=== PATIENT | female | born 1965 | race Caucasian/White ===

== ENCOUNTER 2017-02-12 19:41 | Inpatient (IN) | payer SELFPAY ==
[2017-02-12 19:55] VITALS: BMI 22.6
[2017-02-12] MEDS ORDERED: NS 1000 ML 1,000 ML ONE (20:09)
--- NOTE | 2017-02-12 20:14 | DR.GENAD ---
HPI - PCP Primary Care Physician: contreras - HPI Comment HPI Comment: NOT FEELING WELL FOR FEW DAYS. TODAY DIARRHEA STARTED. THEN INCREASING ABDOMINAL PAIN WITH N/V. WEAK AND DRAIN OF ENERGY. NO FEVER. TOOK 1/ 2 OF PERCOCET WITHOUT RELIEF. PAIN IS INTENSE. - Complaint/Symptoms Chief Complaint Doctors Comments: ABDOMINAL PAIN WITH N/V AND DISTENSION NOTED TODAY. Chief Complaint:: pt states" the bottom of my stomach started hurting today and then diarrhea started my stomach started swelling" pt also c/o genearlized weakness and pain - Nurses notes reviewed Nurses Notes Review: Yes - Source History Provided: Patient - Mode of Arrival Mode of Arrival: EMS - Timing Onset of Chief Complaint: 02/12/17 Came on: Suddenly - Duration Duration: Constant Duration: Hours - Severity Severity: Moderate PMH - PMH Past Medical History: Yes Past Medical History: Anemia, Hypertension Past Surgical History: Yes Surgical History: Hysterectomy Past Surgical History Comment: breast augmentation - Family History History of Family Medical Conditions: Yes Family Medical History: Hypertension - Social History Does any household member use tobacco: No Alcohol Use: None Do you use any recreational Drugs:: No Lives With: Family Lives Where: Home - infectious screening In the last 2 months have you had wt loss of >10#?: NO Have you had fever, night sweats or hemotysis?: No Have you traveled outside the country in the last 6 months?: No Isolation: Standard ROS - Review of Systems Constitutional: Weakness, Fatigue. negative: Chills, Fever Eyes: No Symptoms Reported. negative: Eye Pain, Discharge ENTM: No Symptoms Reported. negative: Ear Pain, Nose Discharge, Nose Congestion , Throat Pain Respiratoy: No Symptoms Reported. negative: Productive Cough, Short of Breath, Wheezing, Hemoptysis Cardiovascular: No Symptoms Reported Gastrointestinal/Abdominal: No Symptoms Reported, Abdominal Pain, Diarrhea, Nausea Genitourinary: No Symptoms Reported. negative: Dysuria, Frequency, Hematuria Neurological: No Symptoms Reported, Headache, Weakness, Dizziness Musculoskeletal: No Symptoms Reported, Back Pain, Back Integumentary: No Symptoms Reported Hematologic/Lymphatic: No Symptoms Reported Endocrine: No Symptoms Reported All Other Systems: Reviewed and Negative PE - Vital Signs Vitals: Temperature 98.6 F Pulse Rate [Left Brachial] 68 Pulse Rate 86 Respiratory Rate 18 Blood Pressure [Left Arm] 214/127 Blood Pressure [Right Arm] 121/88 Blood Pressure 210/119 O2 Sat by Pulse Oximetry 100 - General Limitations: No Limitations General Appearance: Alert - Head Head Exam: Normal Inspection - Eyes Eye exam: Normal Appearance - ENT ENT Exam: Normal External Ear Exam External Ear Exam: Normal External Inspection TM/Canal Exam: Bilateral Normal Nose Exam: Normal Nose Exam Mouth Exam: Normal Inspection - Neck Neck Exam: Normal Inspection - Chest Chest Inspection: Symmetric Chest Wall Rise - Respiratory Respiratory Exam: Normal Lung Sounds Bilat Respiratory Exam: Bilateral Rhonchi, Lower Rhonchi - Cardiovascular Cardiovascular Exam: Regular Rate, Normal Rhythm, Normal Heart Sounds - Abdominal Exam Abdominal Exam: Normal Bowel Sounds, Soft, Tenderness Abdominal Tenderness: Diffuse, Moderate - Extremities Extremities Exam: Normal Inspection - Back Back Exam: Paraspinal Tenderness - Neurologic Neurological Exam: Alert, Oriented X3 - Psychiatric Psychiatric Exam: Normal Affect, Normal Mood - Skin Skin Exam: Normal Color MDM - Additional Information Additional Information Obtained From: Family - Differential Diagnosis Differential Diagnosis: ABDOMINAL PAIN. PUD, KIDNEY STONE, BOWEL OBSTRUCTION, PANCREATITIS Course - Treatment Treatment: SEE ORDERS. IV PAIN AND NAUSEA MEDS IN ED. PATIENTS BP IS ELEVATED. GAVE ORAL MEDS BUT BP STILL HIGH. PULSE IN 60S PATIENT IS ON LABETALOL. NIPRIDE DRIP STARTED. BP IMPROVE. HER STATUS CHANGE TO ICU. - Consultation Consultation Comments: DISCUSS PATIENT WITH DR. MONTANEZ. HE WILL ADMIT PATIENT. - Education/Counseling Education/Counseling: Patient, Family, Education Educated On: Treatment, Diagnosis ROR - Labs Reviewed Laboratory Results Reviewed?: Yes Result Diagrams: 02/13/17 02:10 02/13/17 02:10 Laboratory: WBC 13.7 X10^3/uL (3.6-10.0) H 02/12/17 20:24 RBC 4.98 X10^6/uL (3.5-5.4) 02/12/17 20:24 Hgb 16.1 g/dL (12.0-16.0) H 02/12/17 20:24 Hct 46.8 % (36.0-47.0) 02/12/17 20:24 MCV 94.0 fL (80.0-100.0) 02/12/17 20:24 MCH 32.4 pg (27.0-34.0) 02/12/17 20:24 MCHC 34.5 g/dL (33.0-35.0) 02/12/17 20:24 RDW 13.0 % (11.6-16.5) 02/12/17 20:24 Plt Count 182 X10^3/uL (150.0-450.0) 02/12/17 20:24 Plt Count Comment Adequate (ADEQUATE) 02/12/17 20:24 MPV 8.4 fL (7.4-11.0) 02/12/17 20:24 Neut % 83.6 % (42.0-75.0) H 02/12/17 20:24 Lymph % 11.2 % (21.0-51.0) L 02/12/17 20:24 [place] % 4.3 % (0.0-13.0) 02/12/17 20:24 Eos % 0.4 % (0.9-2.9) L 02/12/17 20:24 Baso % 0.5 % (0.2-1.0) 02/12/17 20:24 Neut # 11.5 x10^3/uL (2.2-4.8) H 02/12/17 20:24 Lymph # 1.5 X10^3/uL (1.3-2.9) 02/12/17 20:24 [place] # 0.6 x10^3/uL (0.3-0.8) 02/12/17 20:24 Eos # 0.1 x10^3/uL (0.0-0.2) 02/12/17 20:24 Baso # 0.1 X10^3/uL (0.0-0.1) 02/12/17 20:24 Absolute Nucleated RBC 0.1 /100WBC 02/12/17 20:24 Plt Morphology Comment Normal (NORMAL) 02/12/17 20:24 RBC Morphology Normal (NORMAL) 02/12/17 20:24 Sodium 143 mmol/L (136-145) 02/12/17 20:24 Corrected Sodium 144 mmol/L (136-145) 02/12/17 20:24 Potassium 3.8 mmol/L (3.5-5.1) 02/12/17 20:24 Chloride 107 mmol/L (98-107) 02/12/17 20:24 Carbon Dioxide 22.9 mmol/L (21-32) 02/12/17 20:24 BUN 11 mg/dL (7-18) 02/12/17 20:24 Creatinine 0.97 mg/dL (0.55-1.02) 02/12/17 20:24 Est GFR (MDRD) Af Amer > 60 (>60) 02/12/17 20:24 Est GFR (MDRD) Non-Af > 60 (>60) 02/12/17 20:24 Glucose 136 mg/dL (65-99) H 02/12/17 20:24 Calcium 9.7 mg/dL (8.5-10.1) 02/12/17 20:24 Corrected Calcium TNP 02/12/17 20:24 Total Bilirubin 0.50 mg/dL (0.2-1.0) 02/12/17 20:24 AST 26 Units/L (15-37) 02/12/17 20:24 ALT 35 Units/L (12-78) 02/12/17 20:24 Alkaline Phosphatase 99 Units/L (46-116) 02/12/17 20:24 Total Protein 7.8 g/dL (6.4-8.2) 02/12/17 20:24 Albumin 3.9 g/dL (3.4-5.0) 02/12/17 20:24 Globulin 3.9 g/dL (2.5-4.5) 02/12/17 20:24 Albumin/Globulin Ratio 1.0 Ratio (1.1-2.1) L 02/12/17 20:24 Amylase 89 Units/L (25-115) 02/12/17 20:24 Lipase 225 Units/L (73-393) 02/12/17 20:24 Specimen Type Clean catch urine 02/12/17 20:29 Urine Color Yellow (YELLOW) 02/12/17 20: Urine Appearance Clear (CLEAR) 02/12/17 20: Urine pH 7.0 (5.0 - 8.0) 02/12/17: Ur Specific [place] 1.010 (1.000-1.030) 02/12/17 20: Urine Protein Trace (NEGATIVE) 02/12/17 20: Urine Glucose (UA) Negative (NEGATIVE) 02/12/17 20: Urine Ketones Negative (NEGATIVE) 02/12/17 20: Urine Occult Blood 1+ (NEGATIVE) 02/12/17 20:29 Urine Nitrite Negative (NEGATIVE) 02/12/17 20:29 Urine Bilirubin Negative (NEGATIVE) 02/12/17 20:29 Urine Urobilinogen Normal (NORMAL) 02/12/17 20:29 Ur Leukocyte Esterase Negative (NEGATIVE) 02/12/17 20:29 Urine RBC 2-6 /HPF (NEGATIVE) 02/12/17 20:29 Urine WBC 0-3 /HPF (NEGATIVE) 02/12/17 20:29 Ur Squamous Epith Cells Rare /HPF (NEGATIVE) 02/12/17 20:29 Urine Bacteria Negative /HPF (NEGATIVE) 02/12/17 20:29 Ur Culture Indicated? No/not indicated 02/12/17 20:29 Influenza Type A (PCR) Negative (NEGATIVE) 02/12/17 20:57 Influenza Type B (PCR) Negative (NEGATIVE) 02/12/17 20:57 Streptococcus Screen Negative (NEGATIVE) 02/12/17 20:50 - XRAY XRAY Interpreted by: Radiologist XRAY Findings: REPORT DISCUSS WITH PATIENT AND HER FAMILY. - Diagnosis Discharge Problem: Acute pancreatitis Qualifiers: Pancreatitis type: idiopathic Acute pancreatitis complication: unspecified Qualified Code(s): K85.00 - Idiopathic acute pancreatitis without necrosis or infection Hypertension Qualifiers: Hypertension type: essential hypertension Qualified Code(s): I10 - Essential ( primary) hypertension Abdominal pain Qualifiers: Abdominal location: generalized Qualified Code(s): R10.84 - Generalized abdominal pain - Discharge Plan Disposition: ADMITTED INPATIENT Condition: Stable - Follow ups/Referrals - Instructions
[2017-02-12] MEDS ORDERED: DEMEROL INJ IVP ONE ×2 (20:16→21:04)
[2017-02-12] MEDS ORDERED: ZOFRAN INJ 4 MG VIAL IVP ONE (20:16)
[2017-02-12] MEDS ORDERED: ATIVAN INJ 2 MG VIAL IVP ONE (20:17)
[2017-02-12] MEDS ORDERED: NS 1000 ML 1,000 ML IV ONE (20:24)
[2017-02-12] MEDS ORDERED: ZOFRAN INJ 4 MG VIAL ONE (20:29)
[2017-02-12] MEDS ORDERED: DEMEROL INJ ONE ×3 (20:30→23:45)
[2017-02-12] MEDS ORDERED: ATIVAN INJ 2 MG VIAL ONE (20:31)
[2017-02-12 20:32] LABS: BASOPHILS # (AUTO) 0.1 X10^3/uL (0.0-0.1); BASOPHILS % (AUTO) 0.5 % (0.2-1.0); EOSINOPHILS # (AUTO) 0.1 x10^3/uL (0.0-0.2); EOSINOPHILS % (AUTO) 0.4 % (0.9-2.9); HEMATOCRIT 46.8 % (36.0-47.0); HEMOGLOBIN 16.1 g/dL (12.0-16.0); LYMPHOCYTES # (AUTO) 1.5 X10^3/uL (1.3-2.9); LYMPHOCYTES % (AUTO) 11.2 % (21.0-51.0); MEAN CORPUSCULAR HEMOGLOBIN 32.4 pg (27.0-34.0); MEAN CORPUSCULAR HGB CONC 34.5 g/dL (33.0-35.0); MEAN PLATELET VOLUME 8.4 fL (7.4-11.0); MONOCYTES # (AUTO) 0.6 x10^3/uL (0.3-0.8); MONOCYTES % (AUTO) 4.3 % (0.0-13.0); NEUTROPHILS # (AUTO) 11.5 x10^3/uL (2.2-4.8); NEUTROPHILS % (AUTO) 83.6 % (42.0-75.0); PLATELET COUNT 182 X10^3/uL (150.0-450.0); RED BLOOD COUNT 4.98 X10^6/uL (3.5-5.4); WHITE BLOOD COUNT 13.7 X10^3/uL (3.6-10.0)
[2017-02-12] MEDS ORDERED: NIFEDIPINE CAP 10 MG PO ONE (20:40)
[2017-02-12 20:41] LABS: PLATELET MORPHOLOGY COMMENT NORMAL (NORMAL)
[2017-02-12] MEDS ORDERED: NIFEDIPINE CAP 10 MG ONE (20:41)
[2017-02-12 20:42] LABS: APPEARANCE,URINE CLEAR (CLEAR); BLOOD/HEMOGLOBIN,URINE 1+ (NEGATIVE); COLOR,URINE YELLOW (YELLOW); GLUCOSE, URINE NEGATIVE (NEGATIVE); KETONES,URINE NEGATIVE (NEGATIVE); PROTEIN,URINE TRACE (NEGATIVE)
[2017-02-12 20:43] LABS: BACTERIA,URINE NEGATIVE /HPF (NEGATIVE); BILIRUBIN,URINE NEGATIVE (NEGATIVE); LEUKOCYTE ESTERASE ,URINE NEGATIVE (NEGATIVE); NITRITES,URINE NEGATIVE (NEGATIVE); SQUAMOUS EPITHELIAL CELL,UR RARE /HPF (NEGATIVE); UROBILINOGEN,URINE NORMAL (NORMAL)
[2017-02-12 20:44] LABS: ALANINE AMINOTRANSFERASE 35 Units/L (12-78); ALBUMIN 3.9 g/dL (3.4-5.0); ALKALINE PHOSPHATASE 99 Units/L (46-116); AMYLASE 89 Units/L (25-115); ASPARTATE AMINO TRANSFERASE 26 Units/L (15-37); BLOOD UREA NITROGEN 11 mg/dL (7-18); CALCIUM 9.7 mg/dL (8.5-10.1); CARBON DIOXIDE 22.9 mmol/L (21-32); CHLORIDE 107 mmol/L (98-107); COR NA(FOR HYPERGLY) 144 mmol/L (136-145); CREATININE 0.97 mg/dL (0.55-1.02); LIPASE 225 Units/L (73-393); SODIUM 143 mmol/L (136-145); TOTAL PROTEIN 7.8 g/dL (6.4-8.2); eGFR BLACK RACES > 60 (>60); eGFR NON BLACK RACES > 60 (>60)
[2017-02-12] MEDS ORDERED: TORADOL 30 MG VIAL IVP ONE (21:07)
[2017-02-12] MEDS ORDERED: TORADOL 30 MG VIAL ONE (21:08)
--- NOTE | 2017-02-12 21:46 | CT ---
CT abdomen and pelvis without contrast Indication: Generalized abdominal pain with diarrhea Comparison: 04/23/2009 CT Technique: Helical images through the abdomen and pelvis without contrast. Coronal and sagittal refor mats provided. Findings: Limited images through the lower chest shows no acute abnormality. Review of bone windows s hows no osseous lesion. Abdomen: Motion artifact limits sensitivity in the upper abdomen mildly. The liver, gallbladder, spleen, adrenal glands, kidneys, stomach, small bowel and colon show no acute abnormality. The appendix is normal. Scattered vascular calcifications are noted. The pancreas is diffusely enlarged peripancreatic stranding. This is compatible with acute pancreatit is. Pelvis: The urinary bladder and rectum appear normal. No adnexal region lesions seen. Uterus is absen t. Impression: 1. Acute pancreatitis, fairly pronounced with diffuse peripancreatic swelling and surrounding strandi ng 2. No other acute abnormality seen. Study is motion artifact limited as described above. Reported By:
[2017-02-12] MEDS ORDERED: PEPCID 20 MG IV PREMIX* 20 MG/50 ML BAG IV PRN (22:06)
[2017-02-12 22:10] LABS: CHOL/HDL RATIO 2.6 (0.0-5.0)
[2017-02-12] MEDS ORDERED: PHENERGAN INJ 25 MG IV PRN (22:13)
[2017-02-12] MEDS ORDERED: ZOFRAN INJ 4 MG VIAL IVP PRN (22:13)
[2017-02-12] MEDS ORDERED: PEPCID 20 MG IV PREMIX* 20 MG/50 ML BAG IV ONE (22:23)
[2017-02-12] MEDS ORDERED: CATAPRES TAB 0.2 MG ONE (22:24)
[2017-02-12] MEDS: NS 1000 ML 1,000 ML IV SCH (22:32)
[2017-02-12] MEDS: NORMODYNE TAB 100 MG PO SCH (22:32)
[2017-02-12] MEDS: CATAPRES TAB 0.2 MG PO SCH (22:34)
[2017-02-12] MEDS: DEMEROL INJ IVP PRN (23:44)
[2017-02-12] MEDS ORDERED: PHENERGAN INJ 25 MG ONE (23:44)
[2017-02-13] MEDS ORDERED: NORMODYNE INJ 20 MG VIAL ONE (00:24)
[2017-02-13] MEDS ORDERED: NORMODYNE INJ 100 MG VIAL IVP ONE (00:25)
[2017-02-13] MEDS ORDERED: D5W 250 ML IV 250 ML IV ONE ×2 (02:04→17:29)
[2017-02-13] MEDS: NITROPRESS 50 MG in D5W 250 ML IV 250 ML IV PRN ×2 (02:13→21:48)
[2017-02-13 02:50] LABS: CKMB % 1.4 % (<4); CREATINE KINASE 171 Units/L (26-192); CREATINE KINASE MB 2.3 ng/mL (0-4.0); MAGNESIUM 1.3 mg/dL (1.7-2.9); TROPONIN I < 0.02 ng/mL (0-1.5)
[2017-02-13 02:51] LABS: BASOPHILS % (AUTO) 0.5 % (0.2-1.0); EOSINOPHILS # (AUTO) 0.1 x10^3/uL (0.0-0.2); EOSINOPHILS % (AUTO) 0.9 % (0.9-2.9); HEMATOCRIT 40.5 % (36.0-47.0); LYMPHOCYTES # (AUTO) 1.9 X10^3/uL (1.3-2.9); LYMPHOCYTES % (AUTO) 19.7 % (21.0-51.0); MEAN CORPUSCULAR HEMOGLOBIN 32.9 pg (27.0-34.0); MEAN CORPUSCULAR HGB CONC 34.7 g/dL (33.0-35.0); MEAN CORPUSCULAR VOLUME 94.8 fL (80.0-100.0); MEAN PLATELET VOLUME 8.6 fL (7.4-11.0); MONOCYTES # (AUTO) 0.7 x10^3/uL (0.3-0.8); MONOCYTES % (AUTO) 7.6 % (0.0-13.0); NEUTROPHILS # (AUTO) 6.8 x10^3/uL (2.2-4.8); NEUTROPHILS % (AUTO) 71.3 % (42.0-75.0); PLATELET COUNT 184 X10^3/uL (150.0-450.0); RED BLOOD COUNT 4.27 X10^6/uL (3.5-5.4); RED CELL DISTRIBUTION WIDTH 12.8 % (11.6-16.5); WHITE BLOOD COUNT 9.6 X10^3/uL (3.6-10.0)
[2017-02-13 03:03] LABS: ALANINE AMINOTRANSFERASE 28 Units/L (12-78); ALBUMIN 3.3 g/dL (3.4-5.0); ALKALINE PHOSPHATASE 86 Units/L (46-116); AMYLASE 58 Units/L (25-115); ASPARTATE AMINO TRANSFERASE 20 Units/L (15-37); BLOOD UREA NITROGEN 10 mg/dL (7-18); CALCIUM 8.5 mg/dL (8.5-10.1); CARBON DIOXIDE 28.6 mmol/L (21-32); CHLORIDE 109 mmol/L (98-107); COR CA(FOR HYPOALB) 9.1 mg/dL (8.5-10.1); LIPASE 114 Units/L (73-393); SODIUM 144 mmol/L (136-145); TOTAL PROTEIN 6.7 g/dL (6.4-8.2); eGFR BLACK RACES > 60 (>60); eGFR NON BLACK RACES > 60 (>60)
[2017-02-13] MEDS ORDERED: POTASSIUM CHL 60 MEQ/NS 0.45% 500 ML IV PRN (05:12)
[2017-02-13] MEDS ORDERED: POTASSIUM CHLORIDE LIQ 20 MEQ UDC PO PRN (05:12)
[2017-02-13] MEDS ORDERED: K-LYTE EFFERVESCENT PO PRN (05:12)
[2017-02-13] MEDS ORDERED: MAGNESIUM SULFATE 1 GM/100 mL PREMIX 1 GM/100 ML BAG IV PRN (05:12)
[2017-02-13] MEDS: CATAPRES TAB 0.2 MG PO SCH (05:54)
[2017-02-13] MEDS: MAG-OX TAB PO PRN ×2 (05:55→09:55)
[2017-02-13] MEDS: NS 1000 ML 1,000 ML IV SCH ×3 (05:55→18:12)
[2017-02-13] MEDS: POTASSIUM CHL 40 MEQ/NS 0.45% 500 ML IV PRN (06:07)
[2017-02-13] MEDS: SYNTHROID 50 mcg TAB PO SCH (06:29)
[2017-02-13] MEDS: DEMEROL INJ IVP PRN ×4 (08:04→23:00)
[2017-02-13] MEDS ORDERED: NORMODYNE TAB 200 MG PO SCH (09:00)
[2017-02-13] MEDS: NEURONTIN CAP 300 MG PO SCH ×2 (09:55→20:09)
[2017-02-13] MEDS: PriLOSEC PO SCH ×2 (09:55→20:00)
[2017-02-13] MEDS: NORMODYNE TAB 100 MG PO SCH ×2 (09:56→20:11)
[2017-02-13] MEDS: XANAX PO SCH ×3 (09:58→20:12)
[2017-02-13] MEDS: ZANAFLEX PO SCH (09:59)
[2017-02-13] MEDS ORDERED: CATAPRES-TTS-3 TD SCH (10:00)
--- NOTE | 2017-02-13 12:03 | DR.H&P ---
H&P - History & Physical for Day of: H&P Date: 02/13/17 - Chief Complaint Chief Complaint: ABDOMINAL PAIN, WEAKNESS - Allergies Allergies/Adverse Reactions: Allergies Allergy/AdvReac Type Severity Reaction Status Date / Time morphine Allergy Verified 02/12/17 19:46 - History of Present Illness History of Present Illness: IS A 51 YEAR OLD PATIENT OF OURS WHO PRESENTED TO THE EMERGENCY ROOM WITH COMPLAINTS OF ABDOMINAL PAIN, DIARRHEA, AND GENERALIZED WEAKNESS. PATIENT REPORTS THAT SYMPTOMS OF DIARRHEA AND ABDOMINAL PAIN BEGAN SUDDENLY, A FEW HOURS PRIOR TO PRESENTING TO THE ER. SHE REPORTS THAT WEAKNESS BEGAN TWO DAYS AGO. ASSOCIATED SYMPTOMS ARE NAUSEA, VOMITING, AND FATIGUE. SHE DENIES FEVER. ON EXAMINATION, HEART IS NORMAL IN RATE AND RHYTHM. LUNGS ARE CLEAR TO AUSCULTATION, BILATERALLY. ABDOMEN IS FLAT, SOFT, AND NOTED WITH MODERATE, DIFFUSE TENDERNESS. NORMAL RANGE OF MOTION NOTED IN ALL EXTREMITIES. ON ARRIVAL TO THE ER, VITAL SIGNS ARE 98.6-86-18-100%-AND AN ELEVATED BLOOD PRESSURE NOTED TO BE 210/119. WE OBTAINED LABS, AND EKG, AND AN ABD/PELVIS CT. ABNORMAL LAB VALUES INCLUDE THE FOLLOWING: WBC 13.7, HGB 16.1 , GLUCOSE 136, A/G RATIO 1.0, HDL 64. URINALYSIS REPORTED WBC 0-3, RBC 2-6, BACTERIA NEGATIVE, LEUKOCYTES NEGATIVE, NITRITES NEGATIVE, TRACE OF PROTEIN. FLU AND STREP SWABS WERE NEGATIVE. EKG REPORTED NORMAL SINUS RHYTHM WITH HR 60. ABD/PELVIS REPORTED ACUTE PANCREATITITS, FAIRLY PRONOUNCED WITH DIFFUSE PERIPANCREATIC SWELLING AND SURROUNDING STRANDING. NO OTHER ACUTE ABNORMALITY SEEN. PATIENT WAS GIVNE NIFEDIPINE 10MG PO X 1 FOR BLOOD PRESSURE IN THE ER WITH NO IMPROVEMENT NOTED, THEREFORE, SHE WAS STARTED ON A NITROPRESS DRIP. SHE WAS GIVEN TORADOL 30MF IVP X 1 AND DEMEROL 25MG IVP X 2 FOR PAIN WITH ONLY MILD IMPROVEMENT IN SYMPTOMS NOTED. WE ADMITTED PATIENT FOR FURTHER EVALUATION AND TREATMENT OF PANCREATITIS. SHE WAS STARTED ON NORMAL SALINE AT 125ML/HR, TORADOL 30MG IVP Q6H PRN PAIN, DEMEROL 25MG IV Q4H PRN PAIN, ZOFRAN 4MG IV Q6H PRN NAUSEA. WE PLANNED TO FOLLOW UP WITH AM LABS AND CONTINUE TO MONITOR PATIENT. - Past Medical History Past Medical History: Anemia, Hypertension Additional Medical History: TIA, Valvular Heart Disease, Mitral Valve Prolapse, Frequent UTI's, Fibroids, Fibromyalgia, Back Pain - Past Surgical History Surgical History: Hysterectomy Additional Surgical History: Dental Surgery approximately two weeks ago - Family History Family Medical History: Hypertension - Social History Does patient currently use any type of tobacco product: No Have you used tobacco products in the last 12 months: No Type of Tobacco Use: None Does any household member use tobacco: No Alcohol Use: None Drug Use: None - Medications Home Medications: Gabapentin [Neurontin Cap 300 mg] 300 mg PO BID 02/12/17 [History Confirmed 06/26] Rosuvastatin Calcium [Crestor] 20 mg PO HS 02/12/17 [History Confirmed 02/12/17] - Review of Systems Constitutional: See HPI, Weakness, Malaise Eyes: No Symptoms Reported. denies: See HPI, Pain, Vision Change, Conjunctivae Inflammation, Eyelid Inflammation, Redness, Other ENT: No Symptoms Reported. denies: See HPI, Ear Pain, Ear Discharge, Nose Pain , Nose Discharge, Nose Congestion, Mouth Pain, Mouth Swelling, Throat Pain, Throat Swelling, Other Respiratory: No Symptoms Reported. denies: See HPI, Cough, Dry, Shortness of Breath, Hemoptysis, SOB with Excertion, Pleuritic Pain, Sputum, Wheezing, Other Cardiovascular: No Symptoms Reported. denies: Chest Pain, See HPI, Palpitations , Orthopnea, Paroxysmal Noc. Dyspnea, Edema, Light Headedness, Other Gastrointestinal: See HPI, Nausea, Vomiting, Abdominal Pain, Diarrhea. denies: Constipation, Melena, Hematochezia Genitourinary: No Symptoms Reported. denies: See HPI, Dysuria, Frequency, Incontinence, Hematuria, Retention, Other Musculoskeletal: No Symptoms Reported. denies: See HPI, Shoulder Pain, Arm Pain , Back Pain, Hand Pain, Leg Pain, Foot Pain, Neck Pain, Other Skin: No Symptoms Reported. denies: See HPI, Rash, Lesions, Jaundice, Bruising , Wound, Ecchymosis, Other Neurological: Weakness. denies: No Symptoms Reported, See HPI, Numbness, Incoordination, Change in Speech, Confusion, Seizures, Other - Physical Exam Vital Signs: Temperature 98.3 F Pulse Rate [Left Brachial] 91 Pulse Rate 86 Respiratory Rate 20 Blood Pressure [Left Arm] 146/87 Blood Pressure [Right Arm] 131/90 Blood Pressure 210/119 O2 Sat by Pulse Oximetry 96 Oriented: Normal. negative: Time, Person, Place, Not Oriented, Unable to test, Other Eyes: Normal. negative: Blurred Vision, Diplopia, Discharge, Pain, Redness, Photophobia, Other Ear: Normal. negative: Right, Left, Swelling, Ecchymosis, Hemotypanum, Abrasion , Laceration Nose: Normal. negative: Injected, Discharge, Blood, Other Throat: Normal. negative: Tonsillar Hypertrophy, Red, Exudate, Dry, Other Respiratory: Clear Throughout Cardiovascular: Normal. negative: Tachycardia, Bradycardia, Irregular, S3, S4, Systolic, Diastolic, Murmur, Edema, Other : Normal Auscultation: Bowel Sounds: Increased Palpation: Normal Tenderness: Diffuse, Moderate. negative: Rebound, Guarding, Rigidity Skin: Normal. negative: Decreased Turgur, Rash, Papular, Macular, Maculopapular , Vesicular, Pustular, Petechial, Red, Tender, Hot, Diaphoresis, Wound, Bruising , Ecchymosis, Other Musculoskeletal: Normal Psychiatric: Normal Mood Description: Calm Affect: Normal Speech Pattern: Clear - Assessment/Plan (1) Acute pancreatitis Qualifiers: Pancreatitis type: idiopathic Acute pancreatitis complication: unspecified Qualified Code(s): K85.00 - Idiopathic acute pancreatitis without necrosis or infection Status: Acute Plan: NORMAL SALINE AT 125ML/HR, TORADOL 30MG IV Q6H PRN PAIN, DEMEROL 25MG IV Q4H PRN PAIN, ZOFRAN 4MG IV Q6H PRN NAUSEA, CONTINUE TO MONITOR (2) Hypertension Qualifiers: Hypertension type: essential hypertension Qualified Code(s): I10 - Essential (primary) hypertension Status: Chronic Plan: CLONIDINE PO TID, NORMODYNE 100MG PO BID, NITROPRUSSIDE DRIP, CONTINUE TO MONITOR
--- NOTE | 2017-02-13 12:25 | PCM.PROG ---
Progress Note - Progress Note for Day of Date: 02/13/17 - Subjective Subjective: WAS ADMITTED FOR ACUTE PANCREATITIS. TODAY, SHE IS ALERT AND ORIENTED, LYING IN BED ON MORNING ROUNDS. SHE CONTINUES WITH COMPLAINTS OF DIFFUSE ABDOMINAL PAIN. PAITENT REPORTS NO IMPROVEMENT IN PAIN SINCE ADMISSION. ON EXAMINATION, HEART IS NORMAL IN RATE IN RHYTHM. [employer] TE[employer]ER SHOWS NORMAL SINUS RHYTHM. LUNGS ARE CLEAR TO AUSCULTATION, BILATERALLY. ABDOMEN IS DISTENDED AND NOTED WITH MODERATE, DIFFUSE TENDERNESS. NORMAL BOWEL SOUNDS ARE NOTED IN ALL QUADRANTS. SHE CONTINUES ON A NITROPRUSSIDE DRIP FOR HER BLOOD PRESSURE. BLOOD PRESSURE HAS REMAINED ELEVATED THROUGHOUT THE NIGHT. HER VITAL SIGNS THIS MORNING ARE 98.3-65-18-93%-149/94. ABNORMAL LAB VALUES INCLUDE THE FOLLOWING: POTASSIUM 3.1, CHLORIDE 109, GLUCOSE 101, MAGNESIUM 1.3, ALBUMIN 3.3. TODAY, WE WILL START A CATAPRESS 0.3MG PATCH AND WILL DISCONTINUE PO CATAPRESS. WE WILL WEAN THE NITROPRUSSIDE DRIP. OTHERWISE, WE WILL CONTINUE WITH CURRENT PLAN ON CARE. WE PLAN TO FOLLOW UP WITH AM LABS AND CONTINUE TO MONITOR PATIENT. - Past Medical Family Social History Past Med/Fam/Surg Hx: No changes since H&P Allergies: Allergies morphine Allergy (Verified 02/12/17 19:46) - Review of Systems ROS: No change since H&P - Vital Signs and I&O's Vital Signs: Temperature 97.5 F Pulse Rate [Left Brachial] 73 Pulse Rate 86 Respiratory Rate 22 Blood Pressure [Left Arm] 161/85 Blood Pressure [Right Arm] 131/90 Blood Pressure 210/119 O2 Sat by Pulse Oximetry 99 Intake and Output: Intake & Output 02/11/17 02/12/17 02/13/17 02/14/17 11:59 11:59 11:59 11:59 Intake Total 2097 Output Total 1000 Balance 1097 - Physical Exam Oriented: Normal. negative: Time, Person, Place, Not Oriented, Unable to test, Other Eyes: Normal. negative: Blurred Vision, Diplopia, Discharge, Pain, Redness, Photophobia, Other Ear: Normal. negative: Right, Left, Swelling, Ecchymosis, Hemotypanum, Abrasion , Laceration Nose: Normal. negative: Injected, Discharge, Blood, Other Throat: Normal. negative: Tonsillar Hypertrophy, Red, Exudate, Dry, Other Respiratory: Normal Cardiovascular: Normal. negative: Tachycardia, Bradycardia, Irregular, S3, S4, Systolic, Diastolic, Murmur, Edema, Other : Normal Auscultation: Bowel Sounds: Normal Palpation: Normal Tenderness: Diffuse, Moderate. negative: Rebound, Guarding, Rigidity Skin: Normal. negative: Decreased Turgur, Rash, Papular, Macular, Maculopapular , Vesicular, Pustular, Petechial, Red, Tender, Hot, Diaphoresis, Wound, Bruising , Ecchymosis, Other Musculoskeletal: Normal Psychiatric: Normal Mood Description: Calm Affect: Normal Speech Pattern: Clear - Laboratory and Diagnostics Result Diagrams: 02/13/17 02:10 02/13/17 02:10 Labs: Laboratory WBC 9.6 X10^3/uL (3.6-10.0) 02/13/17 02:10 RBC 4.27 X10^6/uL (3.5-5.4) 02/13/17 02:10 Hgb 14.0 g/dL (12.0-16.0) D 02/13/17 02:10 Hct 40.5 % (36.0-47.0) 02/13/17 02:10 MCV 94.8 fL (80.0-100.0) 02/13/17 02:10 MCH 32.9 pg (27.0-34.0) 02/13/17 02:10 MCHC 34.7 g/dL (33.0-35.0) 02/13/17 02:10 RDW 12.8 % (11.6-16.5) 02/13/17 02:10 Plt Count 184 X10^3/uL (150.0-450.0) 02/13/17 02:10 Plt Count Comment Adequate (ADEQUATE) 02/12/17 20:24 MPV 8.6 fL (7.4-11.0) 02/13/17 02:10 Neut % 71.3 % (42.0-75.0) 02/13/17 02:10 Lymph % 19.7 % (21.0-51.0) L 02/13/17 02:10 [place] % 7.6 % (0.0-13.0) 02/13/17 02:10 Eos % 0.9 % (0.9-2.9) 02/13/17 02:10 Baso % 0.5 % (0.2-1.0) 02/13/17 02:10 Neut # 6.8 x10^3/uL (2.2-4.8) H 02/13/17 02:10 Lymph # 1.9 X10^3/uL (1.3-2.9) 02/13/17 02:10 [place] # 0.7 x10^3/uL (0.3-0.8) 02/13/17 02:10 Eos # 0.1 x10^3/uL (0.0-0.2) 02/13/17 02:10 Baso # 0.0 X10^3/uL (0.0-0.1) 02/13/17 02:10 Absolute Nucleated RBC 0.1 /100WBC 02/13/17 02:10 Plt Morphology Comment Normal (NORMAL) 02/12/17 20:24 RBC Morphology Normal (NORMAL) 02/12/17 20:24 INR Target Range - 02/13/17 02:10 INR 1.01 (0.8-1.3) 02/13/17 02:10 PTT 32.8 SECONDS (22.9-36.5) 02/13/17 02:10 PTT Comment - 02/13/17 02:10 Sodium 144 mmol/L (136-145) 02/13/17 02:10 Corrected Sodium TNP 02/13/17 02:10 Potassium 3.1 mmol/L (3.5-5.1) L 02/13/17 02:10 Chloride 109 mmol/L (98-107) H 02/13/17 02:10 Carbon Dioxide 28.6 mmol/L (21-32) 02/13/17 02:10 BUN 10 mg/dL (7-18) 02/13/17 02:10 Creatinine 0.70 mg/dL (0.55-1.02) 02/13/17 02:10 Est GFR (MDRD) Af Amer > 60 (>60) 02/13/17 02:10 Est GFR (MDRD) Non-Af > 60 (>60) 02/13/17 02:10 Glucose 101 mg/dL (65-99) H 02/13/17 02:10 Calcium 8.5 mg/dL (8.5-10.1) 02/13/17 02:10 Corrected Calcium 9.1 mg/dL (8.5-10.1) 02/13/17 02:10 Magnesium 1.3 mg/dL (1.7-2.9) L 02/13/17 02:10 Total Bilirubin 0.50 mg/dL (0.2-1.0) 02/13/17 02:10 AST 20 Units/L (15-37) 02/13/17 02:10 ALT 28 Units/L (12-78) 02/13/17 02:10 Alkaline Phosphatase 86 Units/L (46-116) 02/13/17 02:10 Creatine Kinase 171 Units/L (26-192) 02/13/17 02:10 CK-MB (CK-2) 2.3 ng/mL (0-4.0) 02/13/17 02:10 CK/CKMB % Calc 1.4 % (<4) 02/13/17 02:10 Troponin I < 0.02 ng/mL (0-1.5) 02/13/17 02:10 Total Protein 6.7 g/dL (6.4-8.2) 02/13/17 02:10 Albumin 3.3 g/dL (3.4-5.0) L 02/13/17 02:10 Globulin 3.4 g/dL (2.5-4.5) 02/13/17 02:10 Albumin/Globulin Ratio 1.0 Ratio (1.1-2.1) L 02/13/17 02:10 Triglycerides 123 mg/dL (0-150) 02/12/17 20:24 Cholesterol 166 mg/dL (0-200) 02/12/17 20:24 LDL Cholesterol, Calc 77 mg/dL (0-100) 02/12/17 20:24 HDL Cholesterol 64 mg/dL (40-60) H 02/12/17 20:24 Cholesterol/HDL Ratio 2.6 (0.0-5.0) 02/12/17 20:24 Amylase 58 Units/L (25-115) 02/13/17 02:10 Lipase 114 Units/L (73-393) 02/13/17 02:10 Specimen Type Clean catch urine 02/12/17 20:29 Urine Color Yellow (YELLOW) 02/12/17 20:29 Urine Appearance Clear (CLEAR) 02/12/17 20:29 Urine pH 7.0 (5.0 - 8.0) 02/12/17 20:29 Ur Specific [place] 1.010 (1.000-1.030) 02/12/17 20:29 Urine Protein Trace (NEGATIVE) 02/12/17 20:29 Urine Glucose (UA) Negative (NEGATIVE) 02/12/17 20:29 Urine Ketones Negative (NEGATIVE) 02/12/17 20:29 Urine Occult Blood 1+ (NEGATIVE) 02/12/17 20:29 Urine Nitrite Negative (NEGATIVE) 02/12/17 20:29 Urine Bilirubin Negative (NEGATIVE) 02/12/17 20:29 Urine Urobilinogen Normal (NORMAL) 02/12/17 20:29 Ur Leukocyte Esterase Negative (NEGATIVE) 02/12/17 20:29 Urine RBC 2-6 /HPF (NEGATIVE) 02/12/17 20:29 Urine WBC 0-3 /HPF (NEGATIVE) 02/12/17 20:29 Ur Squamous Epith Cells Rare /HPF (NEGATIVE) 02/12/17 20:29 Urine Bacteria Negative /HPF (NEGATIVE) 02/12/17 20:29 Ur Culture Indicated? No/not indicated 02/12/17 20:29 Influenza Type A (PCR) Negative (NEGATIVE) 02/12/17 20:57 Influenza Type B (PCR) Negative (NEGATIVE) 02/12/17 20:57 Streptococcus Screen Negative (NEGATIVE) 02/12/17 20:50 - Plan (1) Acute pancreatitis Status: Acute Qualifiers: Pancreatitis type: idiopathic Acute pancreatitis complication: unspecified Qualified Code(s): K85.00 - Idiopathic acute pancreatitis without necrosis or infection Plan: NORMAL SALINE AT 125ML/HR, TORADOL 30MG IV Q6H PRN PAIN, DEMEROL 25MG IV Q4H PRN PAIN, ZOFRAN 4MG IV Q6H PRN NAUSEA, CONTINUE TO MONITOR (2) Hypertension Status: Chronic Qualifiers: Hypertension type: essential hypertension Qualified Code(s): I10 - Essential (primary) hypertension Plan: CLONIDINE PO TID, NORMODYNE 100MG PO BID, NITROPRUSSIDE DRIP, CONTINUE TO MONITOR (3) Dyslipidemia Status: Acute Plan: CONTINUE CRESTOR, CONTINUE TO MONITOR (4) Anxiety Status: Chronic Plan: CONTINUE XANAX, CONTINUE KLONOPIN, CONTINUE TO MONITOR (5) Fibromyalgia Status: Chronic Plan: CONTINUE NEURONTIN AND ZANAFLEX, CONTINUE TO MONITOR (6) GERD (gastroesophageal reflux disease) Status: Chronic Qualifiers: Esophagitis presence: esophagitis presence not specified Qualified Code(s) : K21.9 - Gastro-esophageal reflux disease without esophagitis Plan: CONTINUE PRILOSEC, CONTINUE (7) Hypothyroidism Status: Chronic Qualifiers: Hypothyroidism type: acquired Qualified Code(s): E03.9 - Hypothyroidism, unspecified Plan: CONTINUE SYNTHROID, CONTINUE TO MONITOR
[2017-02-13] MEDS: K-RIDER 10 MEQ/NS 100 ML 10 MEQ/100 ML BAG IV PRN ×2 (14:51→15:59)
[2017-02-13] MEDS ORDERED: K-RIDER 10 MEQ/NS 100 ML IV ONE (15:33)
[2017-02-13] MEDS: TORADOL 30 MG VIAL IVP PRN (19:58)
[2017-02-13] MEDS: CRESTOR TAB 10 MG PO SCH (20:00)
[2017-02-13] MEDS: KLONOPIN TAB 1 MG PO SCH (20:08)
[2017-02-13] MEDS: AMBIEN PO SCH (20:11)
[2017-02-13] MEDS ORDERED: PATIENT'S HOME MEDICATION (Rosuvastatin Calcium [Crestor] 20 MG) PO SCH (21:00)
[2017-02-13] MEDS ORDERED: PATIENT'S HOME MEDICATION (Clonazepam [Clonazepam] 2 MG) PO SCH (21:00)
[2017-02-14] MEDS: TYLENOL 325 MG TAB PO PRN ×2 (02:23→08:47)
[2017-02-14] MEDS: NS 1000 ML 1,000 ML IV SCH ×4 (02:50→17:32)
[2017-02-14] MEDS: DEMEROL INJ IVP PRN ×3 (04:50→20:15)
[2017-02-14 06:29] LABS: BASOPHILS % (AUTO) 0.5 % (0.2-1.0); EOSINOPHILS % (AUTO) 0.3 % (0.9-2.9); HEMATOCRIT 34.8 % (36.0-47.0); HEMOGLOBIN 12.4 g/dL (12.0-16.0); LYMPHOCYTES # (AUTO) 1.2 X10^3/uL (1.3-2.9); LYMPHOCYTES % (AUTO) 16.2 % (21.0-51.0); MEAN CORPUSCULAR HEMOGLOBIN 33.4 pg (27.0-34.0); MEAN CORPUSCULAR HGB CONC 35.8 g/dL (33.0-35.0); MEAN CORPUSCULAR VOLUME 93.3 fL (80.0-100.0); MEAN PLATELET VOLUME 7.8 fL (7.4-11.0); MONOCYTES # (AUTO) 0.4 x10^3/uL (0.3-0.8); MONOCYTES % (AUTO) 5.3 % (0.0-13.0); NEUTROPHILS # (AUTO) 5.9 x10^3/uL (2.2-4.8); NEUTROPHILS % (AUTO) 77.7 % (42.0-75.0); PLATELET COUNT 136 X10^3/uL (150.0-450.0); RED BLOOD COUNT 3.73 X10^6/uL (3.5-5.4); RED CELL DISTRIBUTION WIDTH 13.2 % (11.6-16.5); WHITE BLOOD COUNT 7.6 X10^3/uL (3.6-10.0)
[2017-02-14] MEDS: TORADOL 30 MG VIAL IVP PRN ×3 (06:33→22:37)
[2017-02-14] MEDS: SYNTHROID 50 mcg TAB PO SCH (06:33)
[2017-02-14 06:37] LABS: ALANINE AMINOTRANSFERASE 18 Units/L (12-78); ALBUMIN 2.7 g/dL (3.4-5.0); ALKALINE PHOSPHATASE 68 Units/L (46-116); AMYLASE 36 Units/L (25-115); ASPARTATE AMINO TRANSFERASE 19 Units/L (15-37); BLOOD UREA NITROGEN 9 mg/dL (7-18); CALCIUM 7.9 mg/dL (8.5-10.1); CARBON DIOXIDE 23.4 mmol/L (21-32); CHLORIDE 103 mmol/L (98-107); COR CA(FOR HYPOALB) 8.9 mg/dL (8.5-10.1); COR NA(FOR HYPERGLY) 137 mmol/L (136-145); CREATININE 0.57 mg/dL (0.55-1.02); LIPASE 115 Units/L (73-393); MAGNESIUM 1.3 mg/dL (1.7-2.9); SODIUM 137 mmol/L (136-145); TOTAL PROTEIN 5.9 g/dL (6.4-8.2); eGFR BLACK RACES > 60 (>60); eGFR NON BLACK RACES > 60 (>60)
[2017-02-14] MEDS: MAG-OX TAB PO PRN ×2 (08:47→12:30)
[2017-02-14] MEDS: ZANAFLEX PO SCH (08:47)
[2017-02-14] MEDS: NEURONTIN CAP 300 MG PO SCH ×2 (08:47→20:13)
[2017-02-14] MEDS: PriLOSEC PO SCH ×2 (08:48→20:13)
[2017-02-14] MEDS: NORMODYNE TAB 100 MG PO SCH (08:48)
[2017-02-14] MEDS: XANAX PO SCH ×2 (08:48→20:14)
[2017-02-14] MEDS: NITROPRESS 50 MG in D5W 250 ML IV 250 ML IV PRN (09:37)
[2017-02-14] MEDS ORDERED: NORMODYNE TAB 100 MG PO SCH (10:25)
--- NOTE | 2017-02-14 13:15 | PCM.PROG ---
Progress Note - Progress Note for Day of Date: 02/14/17 - Subjective Subjective: WAS ADMITTED FOR ACUTE PANCREATITIS. TODAY, SHE IS ALERT AND ORIENTED, LYING IN BED ON MORNING ROUNDS. FAMILY MEMBERS ARE AT BEDSIDE. SHE CONTINUES WITH COMPLAINTS OF DIFFUSE ABDOMINAL PAIN. ON EXAMINATION, HEART IS NORMAL IN RATE IN RHYTHM. DESTINATION SPECIALIST SHOWS NORMAL SINUS RHYTHM. LUNGS ARE CLEAR TO AUSCULTATION, BILATERALLY. ABDOMEN CONTINUES TO BE DISTENDED AND NOTED WITH MODERATE, DIFFUSE TENDERNESS. NORMAL BOWEL SOUNDS ARE NOTED IN ALL QUADRANTS. HER BLOOD PRESSURE REMAINS ELEVATED DESPITED ADDING CLONIDINE PATCH AND CONTINUING NITROPRUSSIDE DRIP. HER VITAL SIGNS THIS MORNING ARE 98.9-79-16- 93%-166/96. ABNORMAL LAB VALUES INCLUDE THE FOLLOWING: HCT 34.8, GLUCOSE 112, CALCIUM 7.9, MAGNESIUM 1.3,TOTAL PROTEIN 5.9, ALBUMIN 2.7. TODAY, WE WILL DISCONTINUE THE NITROPRUSSIDE DRIPAND INCREASE HER HOME MEDICATION OF LABETALOL TO 200MG BID. OTHERWISE, WE WILL CONTINUE WITH CURRENT PLAN ON CARE AND CONTINUE TO MONITOR BLOOD PRESSURE. WE PLAN TO FOLLOW UP WITH AM LABS AND CONTINUE TO MONITOR PATIENT. - Past Medical Family Social History Past Med/Fam/Surg Hx: No changes since H&P Allergies: Allergies morphine Allergy (Verified 02/12/17 19:46) - Review of Systems ROS: No change since H&P - Vital Signs and I&O's Vital Signs: Temperature 99.1 F Pulse Rate [Left Brachial] 74 Pulse Rate 86 Respiratory Rate 14 Blood Pressure [Left Arm] 153/87 Blood Pressure [Right Arm] 131/90 Blood Pressure 210/119 O2 Sat by Pulse Oximetry 91 Intake and Output: Intake & Output 02/12/17 02/13/17 02/14/17 02/15/17 11:59 11:59 11:59 11:59 Intake Total 2097 3434 Output Total 1000 300 Balance 1097 3134 - Physical Exam Oriented: Normal. negative: Time, Person, Place, Not Oriented, Unable to test, Other Eyes: Normal. negative: Blurred Vision, Diplopia, Discharge, Pain, Redness, Photophobia, Other Ear: Normal. negative: Right, Left, Swelling, Ecchymosis, Hemotypanum, Abrasion , Laceration Nose: Normal. negative: Injected, Discharge, Blood, Other Throat: Normal. negative: Tonsillar Hypertrophy, Red, Exudate, Dry, Other Respiratory: Normal Cardiovascular: Normal. negative: Tachycardia, Bradycardia, Irregular, S3, S4, Systolic, Diastolic, Murmur, Edema, Other : Normal Auscultation: Bowel Sounds: Normal Palpation: Normal Tenderness: Diffuse, Moderate. negative: Rebound, Guarding, Rigidity Skin: Normal. negative: Decreased Turgur, Rash, Papular, Macular, Maculopapular , Vesicular, Pustular, Petechial, Red, Tender, Hot, Diaphoresis, Wound, Bruising , Ecchymosis, Other Musculoskeletal: Normal Psychiatric: Normal Mood Description: Calm Affect: Normal Speech Pattern: Appropriate - Laboratory and Diagnostics Result Diagrams: 02/14/17 06:17 02/14/17 04:55 Labs: 02/12/17 20:50 Throat Throat Culture - Preliminary Laboratory WBC 7.6 X10^3/uL (3.6-10.0) 02/14/17 06:17 RBC 3.73 X10^6/uL (3.5-5.4) 02/14/17 06:17 Hgb 12.4 g/dL (12.0-16.0) 02/14/17 06:17 Hct 34.8 % (36.0-47.0) L 02/14/17 06:17 MCV 93.3 fL (80.0-100.0) 02/14/17 06:17 MCH 33.4 pg (27.0-34.0) 02/14/17 06:17 MCHC 35.8 g/dL (33.0-35.0) H 02/14/17 06:17 RDW 13.2 % (11.6-16.5) 02/14/17 06:17 Plt Count 136 X10^3/uL (150.0-450.0) L 02/14/17 06:17 Plt Count Comment Adequate (ADEQUATE) 02/12/17 20:24 MPV 7.8 fL (7.4-11.0) 02/14/17 06:17 Neut % 77.7 % (42.0-75.0) H 02/14/17 06:17 Lymph % 16.2 % (21.0-51.0) L 02/14/17 06:17 [place] % 5.3 % (0.0-13.0) 12/06/17 06:17 Eos % 0.3 % (0.9-2.9) L 02/14/17 06:17 Baso % 0.5 % (0.2-1.0) 02/14/17 06:17 Neut # 5.9 x10^3/uL (2.2-4.8) H 02/14/17 06:17 Lymph # 1.2 X10^3/uL (1.3-2.9) L 02/14/17 06:17 [place] # 0.4 x10^3/uL (0.3-0.8) 02/14/17 06:17 Eos # 0.0 x10^3/uL (0.0-0.2) 02/14/17 06:17 Baso # 0.0 X10^3/uL (0.0-0.1) 02/14/17 06:17 Absolute Nucleated RBC 0.0 /100WBC 02/14/17 06:17 Plt Morphology Comment Normal (NORMAL) 02/12/17 20:24 RBC Morphology Normal (NORMAL) 02/12/17 20:24 INR Target Range - 02/13/17 02:10 INR 1.01 (0.8-1.3) 02/13/17 02:10 PTT 32.8 SECONDS (22.9-36.5) 02/13/17 02:10 PTT Comment - 02/13/17 02:10 Sodium 137 mmol/L (136-145) 02/14/17 04:55 Corrected Sodium 137 mmol/L (136-145) 02/14/17 04:55 Potassium 3.9 mmol/L (3.5-5.1) 02/14/17 04:55 Chloride 103 mmol/L (98-107) 02/14/17 04:55 Carbon Dioxide 23.4 mmol/L (21-32) 02/14/17 04:55 BUN 9 mg/dL (7-18) 02/14/17 04:55 Creatinine 0.57 mg/dL (0.55-1.02) 02/14/17 04:55 Est GFR (MDRD) Af Amer > 60 (>60) 02/14/17 04:55 Est GFR (MDRD) Non-Af > 60 (>60) 02/14/17 04:55 Glucose 112 mg/dL (65-99) H 02/14/17 04:55 Calcium 7.9 mg/dL (8.5-10.1) L 02/14/17 04:55 Corrected Calcium 8.9 mg/dL (8.5-10.1) 02/14/17 04:55 Magnesium 1.3 mg/dL (1.7-2.9) L 02/14/17 04:55 Total Bilirubin 0.50 mg/dL (0.2-1.0) 02/14/17 04:55 AST 19 Units/L (15-37) 02/14/17 04:55 ALT 18 Units/L (12-78) 02/14/17 04:55 Alkaline Phosphatase 68 Units/L (46-116) 02/14/17 04:55 Creatine Kinase 171 Units/L (26-192) 02/13/17 02:10 CK-MB (CK-2) 2.3 ng/mL (0-4.0) 02/13/17 02:10 CK/CKMB % Calc 1.4 % (<4) 02/13/17 02:10 Troponin I < 0.02 ng/mL (0-1.5) 02/13/17 02:10 Total Protein 5.9 g/dL (6.4-8.2) L 02/14/17 04:55 Albumin 2.7 g/dL (3.4-5.0) L 02/14/17 04:55 Globulin 3.2 g/dL (2.5-4.5) 02/14/17 04:55 Albumin/Globulin Ratio 0.8 Ratio (1.1-2.1) L 02/14/17 04:55 Triglycerides 123 mg/dL (0-150) 02/12/17 20:24 Cholesterol 166 mg/dL (0-200) 02/12/17 20:24 LDL Cholesterol, Calc 77 mg/dL (0-100) 02/12/17 20:24 HDL Cholesterol 64 mg/dL (40-60) H 02/12/17 20:24 Cholesterol/HDL Ratio 2.6 (0.0-5.0) 02/12/17 20:24 Amylase 36 Units/L (25-115) 02/14/17 04:55 Lipase 115 Units/L (73-393) 02/14/17 04:55 Specimen Type Clean catch urine 02/12/17 20:29 Urine Color Yellow (YELLOW) 02/12/17 20:29 Urine Appearance Clear (CLEAR) 02/12/17 20: Urine pH 7.0 (5.0 - 8.0) 02/12/17 20:29 Ur Specific [place] 1.010 (1.000-1.030) 02/12/17 20:29 Urine Protein Trace (NEGATIVE) 02/12/17 20:29 Urine Glucose (UA) Negative (NEGATIVE) 02/12/17 20:29 Urine Ketones Negative (NEGATIVE) 02/12/17 20:29 Urine Occult Blood 1+ (NEGATIVE) 02/12/17 20: Urine Nitrite Negative (NEGATIVE) 02/12/17 20: Urine Bilirubin Negative (NEGATIVE) 02/12/17 20:29 Urine Urobilinogen Normal (NORMAL) 02/12/17 20:29 Ur Leukocyte Esterase Negative (NEGATIVE) 02/12/17 20:29 Urine RBC 2-6 /HPF (NEGATIVE) 02/12/17 20:29 Urine WBC 0-3 /HPF (NEGATIVE) 02/12/17 20:29 Ur Squamous Epith Cells Rare /HPF (NEGATIVE) 02/12/17 20:29 Urine Bacteria Negative /HPF (NEGATIVE) 02/12/17 20:29 Ur Culture Indicated? No/not indicated 02/12/17 20:29 Influenza Type A (PCR) Negative (NEGATIVE) 02/12/17 20:57 Influenza Type B (PCR) Negative (NEGATIVE) 02/12/17 20:57 Streptococcus Screen Negative (NEGATIVE) 02/12/17 20:50 - Plan (1) Acute pancreatitis Status: Acute Qualifiers: Pancreatitis type: idiopathic Acute pancreatitis complication: unspecified Qualified Code(s): K85.00 - Idiopathic acute pancreatitis without necrosis or infection Plan: NORMAL SALINE AT 125ML/HR, TORADOL 30MG IV Q6H PRN PAIN, DEMEROL 25MG IV Q4H PRN PAIN, ZOFRAN 4MG IV Q6H PRN NAUSEA, CONTINUE TO MONITOR (2) Hypertension Status: Chronic Qualifiers: Hypertension type: essential hypertension Qualified Code(s): I10 - Essential (primary) hypertension Plan: CATAPRES PATCH 0.3MG TD WEEKLY, NORMODYNE 200MG PO BID, DISCONTINUE NITROPRUSSIDE DRIP, CONTINUE TO MONITOR (3) Dyslipidemia Status: Acute Plan: CONTINUE CRESTOR, CONTINUE TO MONITOR (4) Anxiety Status: Chronic Plan: CONTINUE XANAX, CONTINUE KLONOPIN, CONTINUE TO MONITOR (5) Fibromyalgia Status: Chronic Plan: CONTINUE NEURONTIN AND ZANAFLEX, CONTINUE TO MONITOR (6) GERD (gastroesophageal reflux disease) Status: Chronic Qualifiers: Esophagitis presence: esophagitis presence not specified Qualified Code(s) : K21.9 - Gastro-esophageal reflux disease without esophagitis Plan: CONTINUE PRILOSEC, CONTINUE (7) Hypothyroidism Status: Chronic Qualifiers: Hypothyroidism type: acquired Qualified Code(s): E03.9 - Hypothyroidism, unspecified Plan: CONTINUE SYNTHROID, CONTINUE TO MONITOR
[2017-02-14] MEDS ORDERED: NORMODYNE TAB 100 MG PO ONE (17:46)
[2017-02-14] MEDS: AMBIEN PO SCH (20:13)
[2017-02-14] MEDS: CRESTOR TAB 10 MG PO SCH (20:13)
[2017-02-14] MEDS: KLONOPIN TAB 1 MG PO SCH (20:14)
[2017-02-15] MEDS: NS 1000 ML 1,000 ML IV SCH ×4 (02:26→23:46)
[2017-02-15] MEDS: DEMEROL INJ IVP PRN ×4 (03:32→23:46)
[2017-02-15 05:41] LABS: BASOPHILS % (AUTO) 0.4 % (0.2-1.0); EOSINOPHILS # (AUTO) 0.1 x10^3/uL (0.0-0.2); EOSINOPHILS % (AUTO) 1.4 % (0.9-2.9); HEMOGLOBIN 11.7 g/dL (12.0-16.0); LYMPHOCYTES # (AUTO) 2.1 X10^3/uL (1.3-2.9); LYMPHOCYTES % (AUTO) 30.8 % (21.0-51.0); MEAN CORPUSCULAR HEMOGLOBIN 32.5 pg (27.0-34.0); MEAN CORPUSCULAR HGB CONC 34.6 g/dL (33.0-35.0); MEAN CORPUSCULAR VOLUME 94.1 fL (80.0-100.0); MEAN PLATELET VOLUME 8.3 fL (7.4-11.0); MONOCYTES # (AUTO) 0.5 x10^3/uL (0.3-0.8); MONOCYTES % (AUTO) 7.7 % (0.0-13.0); NEUTROPHILS % (AUTO) 59.7 % (42.0-75.0); PLATELET COUNT 122 X10^3/uL (150.0-450.0); RED BLOOD COUNT 3.61 X10^6/uL (3.5-5.4); WHITE BLOOD COUNT 6.7 X10^3/uL (3.6-10.0)
[2017-02-15] MEDS: SYNTHROID 50 mcg TAB PO SCH (06:05)
[2017-02-15 06:09] LABS: ALANINE AMINOTRANSFERASE 21 Units/L (12-78); ALBUMIN 2.8 g/dL (3.4-5.0); ALKALINE PHOSPHATASE 60 Units/L (46-116); ASPARTATE AMINO TRANSFERASE 13 Units/L (15-37); BLOOD UREA NITROGEN 11 mg/dL (7-18); CALCIUM 8.1 mg/dL (8.5-10.1); CARBON DIOXIDE 23.9 mmol/L (21-32); CHLORIDE 110 mmol/L (98-107); COR CA(FOR HYPOALB) 9.1 mg/dL (8.5-10.1); CREATININE 0.64 mg/dL (0.55-1.02); MAGNESIUM 1.7 mg/dL (1.7-2.9); SODIUM 144 mmol/L (136-145); TOTAL PROTEIN 5.8 g/dL (6.4-8.2); eGFR BLACK RACES > 60 (>60); eGFR NON BLACK RACES > 60 (>60)
[2017-02-15] MEDS: MAG-OX TAB PO PRN (06:30)
[2017-02-15] MEDS: TORADOL 30 MG VIAL IVP PRN ×2 (06:35→21:43)
[2017-02-15 08:02] LABS: AMYLASE 44 Units/L (25-115); LIPASE 169 Units/L (73-393)
[2017-02-15] MEDS: NORMODYNE TAB 100 MG PO SCH ×2 (09:15→21:42)
[2017-02-15] MEDS: ZANAFLEX PO SCH (09:15)
[2017-02-15] MEDS: NEURONTIN CAP 300 MG PO SCH ×2 (09:15→21:42)
[2017-02-15] MEDS: PriLOSEC PO SCH ×2 (09:15→21:43)
[2017-02-15] MEDS: XANAX PO SCH ×2 (09:15→21:42)
[2017-02-15] MEDS: POTASSIUM CHL 40 MEQ/NS 0.45% 500 ML IV PRN (09:17)
[2017-02-15] MEDS: COZAAR PO SCH (11:05)
--- NOTE | 2017-02-15 13:22 | CT ---
HISTORY: Pancreatitis Study: CT abdomen and pelvis without IV or contrast Comparison: 02/12/2017. Technique: Multiple axial images of the abdomen and pelvis were obtained from the lung bases to the pubic symphy sis without the administration of IV or oral contrast. Coronal and sagittal images are also reviewed . Dose reduction techniques utilized automatic exposure control. Findings: There are small bilateral pleural effusions. The liver, spleen, kidneys, and adrenal glands are unrem arkable in their CT appearance. The gallbladder is unremarkable in its CT appearance. The appearance of the pancreas is much improved compared to the prior studies. There is less thickening. Peripancrea tic edema has diminished. No evidence of mass or fluid collection is seen. No significant mesenteric lymphadenopathy or stranding can be observed. No free fluid or free air is seen within the abdomen. No bowel wall thickening or bowel dilatation is present. The appendix is normal. The colon is unre markable. Specifically, there is no diverticulosis noted within the sigmoid colon. The uterus is chidi gically absent. Adnexal regions are unremarkable. The urinary bladder is grossly unremarkable. The b michaela structures are grossly intact. IMPRESSION: Significant interval improvement in the acute pancreatitis pattern. The pancreas is less thickened wi th less peripancreatic edema. No mass or fluid is seen. Reported By:
--- NOTE | 2017-02-15 21:24 | PCM.PROG ---
Progress Note - Progress Note for Day of Date: 02/15/17 - Subjective Subjective: WAS ADMITTED FOR ACUTE PANCREATITIS. TODAY, SHE IS ALERT AND ORIENTED, LYING IN BED ON MORNING ROUNDS. FAMILY MEMBERS ARE AT BEDSIDE. SHE CONTINUES WITH COMPLAINTS OF DIFFUSE ABDOMINAL PAIN, BUT REPORTS THAT PAIN HAS SLIGHTLY IMPROVED SINCE YESTERDAY. ON EXAMINATION, HEART IS NORMAL IN RATE IN RHYTHM. CARPET CLEANER SHOWS NORMAL SINUS RHYTHM. LUNGS ARE CLEAR TO AUSCULTATION, BILATERALLY. ABDOMEN CONTINUES WITH MODERATE, DIFFUSE TENDERNESS. NORMAL BOWEL SOUNDS ARE NOTED IN ALL QUADRANTS. HER BLOOD PRESSURE REMAINS ELEVATED DESPITED ADDING CLONIDINE PATCH AND INCREASING THE LABETALOL. HER VITAL SIGNS THIS MORNING ARE 98.4-70-14-96%-166/95. ABNORMAL LAB VALUES INCLUDE THE FOLLOWING: HGB 11.7, HCT 34.0, POTASSIUM 3.2, CHLORIDE 110, CALCIUM 8.1, AST 13, TOTAL PROTEIN 5.8, ALBUMIN 2.8. TODAY, WE WILL ADD LOSARTAN 100MG PO DAILY. WE WILL OBTAIN A REPEAT CT OF THE ABD/PELVIS WITH CONTRAST. IF CT HAS IMPROVED, WE WILL ADVANCE HER TO A CLEAR LIQUID DIET. OTHERWISE, WE WILL CONTINUE TO MONITOR BLOOD PRESSURE. WE PLAN TO FOLLOW UP WITH AM LABS AND CONTINUE TO MONITOR PATIENT. - Past Medical Family Social History Past Med/Fam/Surg Hx: No changes since H&P Allergies: Allergies morphine Allergy (Verified 02/12/17 19:46) - Review of Systems ROS: No change since H&P - Vital Signs and I&O's Vital Signs: Temperature 98.2 F Pulse Rate [Left Brachial] 84 Pulse Rate 86 Respiratory Rate 24 Blood Pressure [Left Arm] 154/104 Blood Pressure [Right Arm] 131/90 Blood Pressure 210/119 O2 Sat by Pulse Oximetry 97 Intake and Output: Intake & Output 02/13/17 02/14/17 02/15/17 02/16/17 11:59 11:59 11:59 11:59 Intake Total 2097 3434 3423 1440 Output Total 4476 751 5374 1200 Balance 1097 3134 -377 240 - Physical Exam Oriented: Normal. negative: Time, Person, Place, Not Oriented, Unable to test, Other Eyes: Normal. negative: Blurred Vision, Diplopia, Discharge, Pain, Redness, Photophobia, Other Ear: Normal. negative: Right, Left, Swelling, Ecchymosis, Hemotypanum, Abrasion , Laceration Nose: Normal. negative: Injected, Discharge, Blood, Other Throat: Normal. negative: Tonsillar Hypertrophy, Red, Exudate, Dry, Other Respiratory: Normal Cardiovascular: Normal. negative: Tachycardia, Bradycardia, Irregular, S3, S4, Systolic, Diastolic, Murmur, Edema, Other : Normal Auscultation: Bowel Sounds: Normal Palpation: Normal Tenderness: Diffuse, Moderate. negative: Rebound, Guarding, Rigidity Skin: Normal. negative: Decreased Turgur, Rash, Papular, Macular, Maculopapular , Vesicular, Pustular, Petechial, Red, Tender, Hot, Diaphoresis, Wound, Bruising , Ecchymosis, Other Musculoskeletal: Normal Psychiatric: Normal Mood Description: Calm Affect: Normal Speech Pattern: Clear, Appropriate - Laboratory and Diagnostics Result Diagrams: 02/15/17 05:00 02/15/17 17:21 Labs: 02/12/17 20:50 Throat Throat Culture - Final Laboratory WBC 6.7 X10^3/uL (3.6-10.0) 02/15/17 05:00 RBC 3.61 X10^6/uL (3.5-5.4) 02/15/17 05:00 Hgb 11.7 g/dL (12.0-16.0) L 02/15/17 05:00 Hct 34.0 % (36.0-47.0) L 02/15/17 05:00 MCV 94.1 fL (80.0-100.0) 02/15/17 05:00 MCH 32.5 pg (27.0-34.0) 02/15/17 05:00 MCHC 34.6 g/dL (33.0-35.0) 02/15/17 05:00 RDW 13.0 % (11.6-16.5) 02/15/17 05:00 Plt Count 122 X10^3/uL (150.0-450.0) L 02/15/17 05:00 Plt Count Comment Adequate (ADEQUATE) 02/12/17 20:24 MPV 8.3 fL (7.4-11.0) 02/15/17 05:00 Neut % 59.7 % (42.0-75.0) 02/15/17 05:00 Lymph % 30.8 % (21.0-51.0) 02/15/17 05:00 [place] % 7.7 % (0.0-13.0) 02/15/17 05:00 Eos % 1.4 % (0.9-2.9) 02/15/17 05:00 Baso % 0.4 % (0.2-1.0) 02/15/17 05:00 Neut # 4.0 x10^3/uL (2.2-4.8) 02/15/17 05:00 Lymph # 2.1 X10^3/uL (1.3-2.9) 02/15/17 05:00 [place] # 0.5 x10^3/uL (0.3-0.8) 02/15/17 05:00 Eos # 0.1 x10^3/uL (0.0-0.2) 02/15/17 05:00 Baso # 0.0 X10^3/uL (0.0-0.1) 02/15/17 05:00 Absolute Nucleated RBC 0.0 /100WBC 02/15/17 05:00 Plt Morphology Comment Normal (NORMAL) 02/12/17 20:24 RBC Morphology Normal (NORMAL) 02/12/17 20:24 INR Target Range - 02/13/17 02:10 INR 1.01 (0.8-1.3) 02/13/17 02:10 PTT 32.8 SECONDS (22.9-36.5) 02/13/17 02:10 PTT Comment - 02/13/17 02:10 Sodium 144 mmol/L (136-145) 02/15/17 05:00 Corrected Sodium TNP 02/15/17 05:00 Potassium 3.6 mmol/L (3.5-5.1) 02/15/17 17:21 Chloride 110 mmol/L (98-107) H 02/15/17 05:00 Carbon Dioxide 23.9 mmol/L (21-32) 02/15/17 05:00 BUN 11 mg/dL (7-18) 02/15/17 05:00 Creatinine 0.64 mg/dL (0.55-1.02) 02/15/17 05:00 Est GFR (MDRD) Af Amer > 60 (>60) 02/15/17 05:00 Est GFR (MDRD) Non-Af > 60 (>60) 02/15/17 05:00 Glucose 86 mg/dL (65-99) 02/15/17 05:00 Calcium 8.1 mg/dL (8.5-10.1) L 02/15/17 05:00 Corrected Calcium 9.1 mg/dL (8.5-10.1) 02/15/17 05:00 Magnesium 1.7 mg/dL (1.7-2.9) 02/15/17 05:00 Total Bilirubin 0.50 mg/dL (0.2-1.0) 02/15/17 05:00 AST 13 Units/L (15-37) L 02/15/17 05:00 ALT 21 Units/L (12-78) 02/15/17 05:00 Alkaline Phosphatase 60 Units/L (46-116) 02/15/17 05:00 Creatine Kinase 171 Units/L (26-192) 02/13/17 02:10 CK-MB (CK-2) 2.3 ng/mL (0-4.0) 02/13/17 02:10 CK/CKMB % Calc 1.4 % (<4) 02/13/17 02:10 Troponin I < 0.02 ng/mL (0-1.5) 02/13/17 02:10 Total Protein 5.8 g/dL (6.4-8.2) L 02/15/17 05:00 Albumin 2.8 g/dL (3.4-5.0) L 02/15/17 05:00 Globulin 3.0 g/dL (2.5-4.5) 02/15/17 05:00 Albumin/Globulin Ratio 0.9 Ratio (1.1-2.1) L 02/15/17 05:00 Triglycerides 123 mg/dL (0-150) 02/12/17 20:24 Cholesterol 166 mg/dL (0-200) 02/12/17 20:24 LDL Cholesterol, Calc 77 mg/dL (0-100) 02/12/17 20:24 HDL Cholesterol 64 mg/dL (40-60) H 02/12/17 20:24 Cholesterol/HDL Ratio 2.6 (0.0-5.0) 02/12/17 20:24 Amylase 44 Units/L (25-115) 02/15/17 05:00 Lipase 169 Units/L (73-393) 02/15/17 05:00 Specimen Type Clean catch urine 02/12/17 20:29 Urine Color Yellow (YELLOW) 02/12/17 20:29 Urine Appearance Clear (CLEAR) 02/12/17 20:29 Urine pH 7.0 (5.0 - 8.0) 02/12/17 20:29 Ur Specific [place] 1.010 (1.000-1.030) 02/12/17 20:29 Urine Protein Trace (NEGATIVE) 02/12/17 20:29 Urine Glucose (UA) Negative (NEGATIVE) 02/12/17 20: Urine Ketones Negative (NEGATIVE) 02/12/17 20:29 Urine Occult Blood 1+ (NEGATIVE) 02/12/17 20: Urine Nitrite Negative (NEGATIVE) 02/12/17 20:29 Urine Bilirubin Negative (NEGATIVE) 02/12/17 20:29 Urine Urobilinogen Normal (NORMAL) 02/12/17 20:29 Ur Leukocyte Esterase Negative (NEGATIVE) 02/12/17 20:29 Urine RBC 2-6 /HPF (NEGATIVE) 02/12/17 20:29 Urine WBC 0-3 /HPF (NEGATIVE) 02/12/17 20:29 Ur Squamous Epith Cells Rare /HPF (NEGATIVE) 02/12/17 20:29 Urine Bacteria Negative /HPF (NEGATIVE) 02/12/17 20:29 Ur Culture Indicated? No/not indicated 02/12/17 20:29 Influenza Type A (PCR) Negative (NEGATIVE) 02/12/17 20:57 Influenza Type B (PCR) Negative (NEGATIVE) 02/12/17 20:57 Streptococcus Screen Negative (NEGATIVE) 02/12/17 20:50 - Plan (1) Acute pancreatitis Status: Acute Qualifiers: Pancreatitis type: idiopathic Acute pancreatitis complication: unspecified Qualified Code(s): K85.00 - Idiopathic acute pancreatitis without necrosis or infection Plan: REPEAT CT ABD/PELVIS, NORMAL SALINE AT 125ML/HR, TORADOL 30MG IV Q6H PRN PAIN, DEMEROL 25MG IV Q4H PRN PAIN, ZOFRAN 4MG IV Q6H PRN NAUSEA, CONTINUE TO MONITOR (2) Hypertension Status: Chronic Qualifiers: Hypertension type: essential hypertension Qualified Code(s): I10 - Essential (primary) hypertension Plan: CATAPRES PATCH 0.3MG TD WEEKLY, NORMODYNE 400MG PO BID, LOSARTAN 100MG PO DAILY, CONTINUE TO MONITOR (3) Dyslipidemia Status: Acute Plan: CONTINUE CRESTOR, CONTINUE TO MONITOR (4) Anxiety Status: Chronic Plan: CONTINUE XANAX, CONTINUE KLONOPIN, CONTINUE TO MONITOR (5) Fibromyalgia Status: Chronic Plan: CONTINUE NEURONTIN AND ZANAFLEX, CONTINUE TO MONITOR (6) GERD (gastroesophageal reflux disease) Status: Chronic Qualifiers: Esophagitis presence: esophagitis presence not specified Qualified Code(s) : K21.9 - Gastro-esophageal reflux disease without esophagitis Plan: CONTINUE PRILOSEC, CONTINUE (7) Hypothyroidism Status: Chronic Qualifiers: Hypothyroidism type: acquired Qualified Code(s): E03.9 - Hypothyroidism, unspecified Plan: CONTINUE SYNTHROID, CONTINUE TO MONITOR
[2017-02-15] MEDS: AMBIEN PO SCH (21:41)
[2017-02-15] MEDS: CRESTOR TAB 10 MG PO SCH (21:42)
[2017-02-15] MEDS: KLONOPIN TAB 1 MG PO SCH (21:42)
[2017-02-16] MEDS: DEMEROL INJ IVP PRN (03:37)
[2017-02-16 05:19] LABS: BASOPHILS % (AUTO) 0.5 % (0.2-1.0); EOSINOPHILS # (AUTO) 0.3 x10^3/uL (0.0-0.2); HEMATOCRIT 31.8 % (36.0-47.0); HEMOGLOBIN 11.2 g/dL (12.0-16.0); LYMPHOCYTES # (AUTO) 2.1 X10^3/uL (1.3-2.9); MEAN CORPUSCULAR HEMOGLOBIN 33.2 pg (27.0-34.0); MEAN CORPUSCULAR HGB CONC 35.1 g/dL (33.0-35.0); MEAN CORPUSCULAR VOLUME 94.4 fL (80.0-100.0); MEAN PLATELET VOLUME 8.3 fL (7.4-11.0); MONOCYTES # (AUTO) 0.6 x10^3/uL (0.3-0.8); MONOCYTES % (AUTO) 8.5 % (0.0-13.0); NEUTROPHILS # (AUTO) 3.8 x10^3/uL (2.2-4.8); PLATELET COUNT 121 X10^3/uL (150.0-450.0); RED BLOOD COUNT 3.37 X10^6/uL (3.5-5.4); RED CELL DISTRIBUTION WIDTH 13.2 % (11.6-16.5); WHITE BLOOD COUNT 6.8 X10^3/uL (3.6-10.0)
[2017-02-16 05:21] LABS: ALANINE AMINOTRANSFERASE 20 Units/L (12-78); ALBUMIN 2.6 g/dL (3.4-5.0); ALKALINE PHOSPHATASE 58 Units/L (46-116); AMYLASE 52 Units/L (25-115); ASPARTATE AMINO TRANSFERASE 12 Units/L (15-37); BLOOD UREA NITROGEN 11 mg/dL (7-18); CALCIUM 8.4 mg/dL (8.5-10.1); CARBON DIOXIDE 24.2 mmol/L (21-32); CHLORIDE 109 mmol/L (98-107); COR CA(FOR HYPOALB) 9.5 mg/dL (8.5-10.1); CREATININE 0.69 mg/dL (0.55-1.02); LIPASE 231 Units/L (73-393); MAGNESIUM 1.6 mg/dL (1.7-2.9); SODIUM 143 mmol/L (136-145); TOTAL PROTEIN 5.6 g/dL (6.4-8.2); eGFR BLACK RACES > 60 (>60); eGFR NON BLACK RACES > 60 (>60)
[2017-02-16] MEDS: SYNTHROID 50 mcg TAB PO SCH (06:27)
[2017-02-16] MEDS: NEURONTIN CAP 300 MG PO SCH ×2 (09:34→20:39)
[2017-02-16] MEDS: COZAAR PO SCH (09:34)
[2017-02-16] MEDS: PriLOSEC PO SCH ×2 (09:34→20:39)
[2017-02-16] MEDS: ZANAFLEX PO SCH (09:35)
[2017-02-16] MEDS: NS 1000 ML 1,000 ML IV SCH ×2 (09:35→23:27)
[2017-02-16] MEDS: XANAX PO SCH ×2 (09:35→20:39)
[2017-02-16] MEDS: TORADOL 30 MG VIAL IVP PRN ×2 (10:05→21:22)
[2017-02-16] MEDS ORDERED: COREG TAB 12.5 MG PO SCH (11:00)
[2017-02-16] MEDS ORDERED: COREG TAB 25 MG ONE (18:11)
[2017-02-16] MEDS: COREG TAB 12.5 MG PO SCH ×2 (18:14→20:40)
--- NOTE | 2017-02-16 20:37 | PCM.PROG ---
Progress Note - Progress Note for Day of Date: 02/16/17 - Subjective Subjective: WAS ADMITTED FOR ACUTE PANCREATITIS. TODAY, SHE IS ALERT AND ORIENTED, LYING IN BED ON MORNING ROUNDS. FAMILY MEMBERS ARE AT BEDSIDE. SHE CONTINUES WITH MILD, DIFFUSE ABDOMINAL PAIN, BUT REPORTS THAT PAIN HAS IMPROVED SINCE ADMISSION. ON EXAMINATION, HEART IS NORMAL IN RATE IN RHYTHM. SHEET METAL SMITH SHOWS NORMAL SINUS RHYTHM. LUNGS ARE CLEAR TO AUSCULTATION, BILATERALLY. ABDOMEN CONTINUES WITH MODERATE, DIFFUSE TENDERNESS. NORMAL BOWEL SOUNDS ARE NOTED IN ALL QUADRANTS. HER BLOOD PRESSURE REMAINS ELEVATED DESPITED ADDING CLONIDINE PATCH AND INCREASING THE LABETALOL. HER VITAL SIGNS THIS MORNING ARE 98.5-78-15-96%-171/95. ABNORMAL LAB VALUES INCLUDE THE FOLLOWING: HGB 11.2, HCT 31.8, CHLORIDE 109, CALCIUM 8.4, MAGNESIUM 1.6, AST 12, TOTAL PROTEIN 5.6, ALBUMIN 2.6. WE REPEATED A CT OF THE ABD/PELVIS YESTERDAY. IT REPORTED SIGNIFICANT INTERVAL IMPROVEMENT IN THE ACUTE PANCREATITIS PATTERN. THE PANCREAS IS LESS THICKENED WITH LESS PERIPANCREATIC EDEMA. NO MASS OR FLUID IS SEEN. PATIENTS BLOOD PRESSURE REMAINS ELEVATED DESPITE CHANGES MADE TO MEDICATIONS. TODAY, WE WILL DISCONTINUE THE LABETALOL AND START COREG 12.5MG PO BID. OTHERWISE, WE WILL CONTINUE TO MONITOR BLOOD PRESSURE. WE PLAN TO FOLLOW UP WITH AM LABS AND CONTINUE TO MONITOR PATIENT. - Past Medical Family Social History Past Med/Fam/Surg Hx: No changes since H&P Allergies: Allergies morphine Allergy (Verified 02/12/17 19:46) - Review of Systems ROS: No change since H&P - Vital Signs and I&O's Vital Signs: Temperature 99.4 F Pulse Rate [Left Brachial] 78 Pulse Rate 86 Respiratory Rate 20 Blood Pressure [Left Arm] 178/112 Blood Pressure [Right Arm] 131/90 Blood Pressure 210/119 O2 Sat by Pulse Oximetry 98 Intake and Output: Intake & Output 02/14/17 02/15/17 02/16/17 02/17/17 11:59 11:59 11:59 11:59 Intake Total 3434 3423 3036 2286 Output Total 300 3800 2700 2000 Balance 3134 -377 336 286 - Physical Exam Oriented: Normal. negative: Time, Person, Place, Not Oriented, Unable to test, Other Eyes: Normal. negative: Blurred Vision, Diplopia, Discharge, Pain, Redness, Photophobia, Other Ear: Normal. negative: Right, Left, Swelling, Ecchymosis, Hemotypanum, Abrasion , Laceration Nose: Normal. negative: Injected, Discharge, Blood, Other Throat: Normal. negative: Tonsillar Hypertrophy, Red, Exudate, Dry, Other Respiratory: Normal Cardiovascular: Normal. negative: Tachycardia, Bradycardia, Irregular, S3, S4, Systolic, Diastolic, Murmur, Edema, Other : Normal Auscultation: Bowel Sounds: Normal Palpation: Normal Tenderness: Diffuse, Mild. negative: Rebound, Guarding, Rigidity Skin: Normal. negative: Decreased Turgur, Rash, Papular, Macular, Maculopapular , Vesicular, Pustular, Petechial, Red, Tender, Hot, Diaphoresis, Wound, Bruising , Ecchymosis, Other Musculoskeletal: Normal Psychiatric: Normal Mood Description: Calm Affect: Normal Speech Pattern: Clear, Appropriate - Laboratory and Diagnostics Result Diagrams: 02/16/17 04:30 02/16/17 04:30 Labs: 02/12/17 20:50 Throat Throat Culture - Final Laboratory WBC 6.8 X10^3/uL (3.6-10.0) 02/16/17 04:30 RBC 3.37 X10^6/uL (3.5-5.4) L 02/16/17 04:30 Hgb 11.2 g/dL (12.0-16.0) L 02/16/17 04:30 Hct 31.8 % (36.0-47.0) L 02/16/17 04:30 MCV 94.4 fL (80.0-100.0) 02/16/17 04:30 MCH 33.2 pg (27.0-34.0) 02/16/17 04:30 MCHC 35.1 g/dL (33.0-35.0) H 02/16/17 04:30 RDW 13.2 % (11.6-16.5) 02/16/17 04:30 Plt Count 121 X10^3/uL (150.0-450.0) L 02/16/17 04:30 Plt Count Comment Adequate (ADEQUATE) 02/12/17 20:24 MPV 8.3 fL (7.4-11.0) 02/16/17 04:30 Neut % 56.0 % (42.0-75.0) 02/16/17 04:30 Lymph % 31.0 % (21.0-51.0) 02/16/17 04:30 [place] % 8.5 % (0.0-13.0) 02/16/17 04:30 Eos % 4.0 % (0.9-2.9) H 02/16/17 04:30 Baso % 0.5 % (0.2-1.0) 02/16/17 04:30 Neut # 3.8 x10^3/uL (2.2-4.8) 02/16/17 04:30 Lymph # 2.1 X10^3/uL (1.3-2.9) 02/16/17 04:30 [place] # 0.6 x10^3/uL (0.3-0.8) 02/16/17 04:30 Eos # 0.3 x10^3/uL (0.0-0.2) H 02/16/17 04:30 Baso # 0.0 X10^3/uL (0.0-0.1) 02/16/17 04:30 Absolute Nucleated RBC 0.0 /100WBC 02/16/17 04:30 Plt Morphology Comment Normal (NORMAL) 02/12/17 20:24 RBC Morphology Normal (NORMAL) 02/12/17 20:24 INR Target Range - 02/13/17 02:10 INR 1.01 (0.8-1.3) 02/13/17 02:10 PTT 32.8 SECONDS (22.9-36.5) 02/13/17 02:10 PTT Comment - 02/13/17 02:10 Sodium 143 mmol/L (136-145) 02/16/17 04:30 Corrected Sodium TNP 02/16/17 04:30 Potassium 3.6 mmol/L (3.5-5.1) 02/16/17 04:30 Chloride 109 mmol/L (98-107) H 02/16/17 04:30 Carbon Dioxide 24.2 mmol/L (21-32) 02/16/17 04:30 BUN 11 mg/dL (7-18) 02/16/17 04:30 Creatinine 0.69 mg/dL (0.55-1.02) 02/16/17 04:30 Est GFR (MDRD) Af Amer > 60 (>60) 02/16/17 04:30 Est GFR (MDRD) Non-Af > 60 (>60) 02/16/17 04:30 Glucose 95 mg/dL (65-99) 02/16/17 04:30 Calcium 8.4 mg/dL (8.5-10.1) L 02/16/17 04:30 Corrected Calcium 9.5 mg/dL (8.5-10.1) 02/16/17 04:30 Magnesium 1.6 mg/dL (1.7-2.9) L 02/16/17 04:30 Total Bilirubin 0.30 mg/dL (0.2-1.0) 02/16/17 04:30 AST 12 Units/L (15-37) L 02/16/17 04:30 ALT 20 Units/L (12-78) 02/16/17 04:30 Alkaline Phosphatase 58 Units/L (46-116) 02/16/17 04:30 Creatine Kinase 171 Units/L (26-192) 02/13/17 02:10 CK-MB (CK-2) 2.3 ng/mL (0-4.0) 02/13/17 02:10 CK/CKMB % Calc 1.4 % (<4) 02/13/17 02:10 Troponin I < 0.02 ng/mL (0-1.5) 02/13/17 02:10 Total Protein 5.6 g/dL (6.4-8.2) L 02/16/17 04:30 Albumin 2.6 g/dL (3.4-5.0) L 02/16/17 04:30 Globulin 3.0 g/dL (2.5-4.5) 02/16/17 04:30 Albumin/Globulin Ratio 0.9 Ratio (1.1-2.1) L 02/16/17 04:30 Triglycerides 123 mg/dL (0-150) 02/12/17 20:24 Cholesterol 166 mg/dL (0-200) 02/12/17 20:24 LDL Cholesterol, Calc 77 mg/dL (0-100) 02/12/17 20:24 HDL Cholesterol 64 mg/dL (40-60) H 02/12/17 20:24 Cholesterol/HDL Ratio 2.6 (0.0-5.0) 02/12/17 20:24 Amylase 52 Units/L (25-115) 02/16/17 04:30 Lipase 231 Units/L (73-393) 02/16/17 04:30 Specimen Type Clean catch urine 02/12/17 20:29 Urine Color Yellow (YELLOW) 02/12/17 20:29 Urine Appearance Clear (CLEAR) 02/12/17 20:29 Urine pH 7.0 (5.0 - 8.0) 02/12/17 20:29 Ur Specific [place] 1.010 (1.000-1.030) 02/12/17 20:29 Urine Protein Trace (NEGATIVE) 02/12/17 20:29 Urine Glucose (UA) Negative (NEGATIVE) 02/12/17 20:29 Urine Ketones Negative (NEGATIVE) 02/12/17 20:29 Urine Occult Blood 1+ (NEGATIVE) 02/12/17 20:29 Urine Nitrite Negative (NEGATIVE) 02/12/17 20:29 Urine Bilirubin Negative (NEGATIVE) 02/12/17 20:29 Urine Urobilinogen Normal (NORMAL) 02/12/17 20:29 Ur Leukocyte Esterase Negative (NEGATIVE) 02/12/17 20:29 Urine RBC 2-6 /HPF (NEGATIVE) 02/12/17 20:29 Urine WBC 0-3 /HPF (NEGATIVE) 02/12/17 20:29 Ur Squamous Epith Cells Rare /HPF (NEGATIVE) 02/12/17 20:29 Urine Bacteria Negative /HPF (NEGATIVE) 02/12/17 20:29 Ur Culture Indicated? No/not indicated 02/12/17 20:29 Influenza Type A (PCR) Negative (NEGATIVE) 02/12/17 20:57 Influenza Type B (PCR) Negative (NEGATIVE) 02/12/17 20:57 Streptococcus Screen Negative (NEGATIVE) 02/12/17 20:50 - Plan (1) Acute pancreatitis Status: Acute Qualifiers: Pancreatitis type: idiopathic Acute pancreatitis complication: unspecified Qualified Code(s): K85.00 - Idiopathic acute pancreatitis without necrosis or infection Plan: REPEAT CT ABD/PELVIS, NORMAL SALINE AT 125ML/HR, TORADOL 30MG IV Q6H PRN PAIN, DEMEROL 25MG IV Q4H PRN PAIN, ZOFRAN 4MG IV Q6H PRN NAUSEA, CONTINUE TO MONITOR (2) Hypertension Status: Chronic Qualifiers: Hypertension type: essential hypertension Qualified Code(s): I10 - Essential (primary) hypertension Plan: CATAPRES PATCH 0.3MG TD WEEKLY, COREG 12.5MG PO BID, LOSARTAN 100MG PO DAILY, CONTINUE TO MONITOR (3) Dyslipidemia Status: Acute Plan: CONTINUE CRESTOR, CONTINUE TO MONITOR (4) Anxiety Status: Chronic Plan: CONTINUE XANAX, CONTINUE KLONOPIN, CONTINUE TO MONITOR (5) Fibromyalgia Status: Chronic Plan: CONTINUE NEURONTIN AND ZANAFLEX, CONTINUE TO MONITOR (6) GERD (gastroesophageal reflux disease) Status: Chronic Qualifiers: Esophagitis presence: esophagitis presence not specified Qualified Code(s) : K21.9 - Gastro-esophageal reflux disease without esophagitis Plan: CONTINUE PRILOSEC, CONTINUE (7) Hypothyroidism Status: Chronic Qualifiers: Hypothyroidism type: acquired Qualified Code(s): E03.9 - Hypothyroidism, unspecified Plan: CONTINUE SYNTHROID, CONTINUE TO MONITOR
[2017-02-16] MEDS: CRESTOR TAB 10 MG PO SCH (20:39)
[2017-02-16] MEDS: AMBIEN PO SCH (20:39)
[2017-02-16] MEDS: KLONOPIN TAB 1 MG PO SCH (20:39)
[2017-02-16] MEDS ORDERED: NITROSTAT SL PRN (22:47)
[2017-02-16] MEDS: TYLENOL 325 MG TAB PO PRN (23:28)
[2017-02-17] MEDS: DEMEROL INJ IVP PRN (03:14)
[2017-02-17 05:57] LABS: ALANINE AMINOTRANSFERASE 22 Units/L (12-78); ALBUMIN 2.7 g/dL (3.4-5.0); ALKALINE PHOSPHATASE 63 Units/L (46-116); ASPARTATE AMINO TRANSFERASE 17 Units/L (15-37); BLOOD UREA NITROGEN 10 mg/dL (7-18); CALCIUM 8.3 mg/dL (8.5-10.1); CARBON DIOXIDE 26.6 mmol/L (21-32); CHLORIDE 108 mmol/L (98-107); COR CA(FOR HYPOALB) 9.3 mg/dL (8.5-10.1); CREATININE 0.59 mg/dL (0.55-1.02); SODIUM 143 mmol/L (136-145); eGFR BLACK RACES > 60 (>60); eGFR NON BLACK RACES > 60 (>60)
[2017-02-17 06:03] LABS: BASOPHILS % (AUTO) 0.8 % (0.2-1.0); EOSINOPHILS # (AUTO) 0.3 x10^3/uL (0.0-0.2); EOSINOPHILS % (AUTO) 4.9 % (0.9-2.9); HEMATOCRIT 33.1 % (36.0-47.0); HEMOGLOBIN 11.6 g/dL (12.0-16.0); LYMPHOCYTES # (AUTO) 1.8 X10^3/uL (1.3-2.9); MEAN CORPUSCULAR HEMOGLOBIN 33.2 pg (27.0-34.0); MEAN CORPUSCULAR VOLUME 94.7 fL (80.0-100.0); MEAN PLATELET VOLUME 8.7 fL (7.4-11.0); MONOCYTES # (AUTO) 0.5 x10^3/uL (0.3-0.8); MONOCYTES % (AUTO) 8.5 % (0.0-13.0); NEUTROPHILS # (AUTO) 3.3 x10^3/uL (2.2-4.8); NEUTROPHILS % (AUTO) 54.8 % (42.0-75.0); PLATELET COUNT 148 X10^3/uL (150.0-450.0); RED CELL DISTRIBUTION WIDTH 13.1 % (11.6-16.5)
[2017-02-17] MEDS: SYNTHROID 50 mcg TAB PO SCH (06:06)
[2017-02-17 07:58] LABS: AMYLASE 67 Units/L (25-115); LIPASE 307 Units/L (73-393)
[2017-02-17] MEDS: NEURONTIN CAP 300 MG PO SCH (09:11)
[2017-02-17] MEDS: ZANAFLEX PO SCH (09:11)
[2017-02-17] MEDS: COREG TAB 12.5 MG PO SCH (09:11)
[2017-02-17] MEDS: PriLOSEC PO SCH (09:12)
[2017-02-17] MEDS: COZAAR PO SCH (09:12)
[2017-02-17] MEDS: XANAX PO SCH (09:13)
[2017-02-17] MEDS: NS 1000 ML 1,000 ML IV SCH (09:14)
[2017-02-17 10:38] VITALS: BP 168/93
== END 2017-02-17 11:20 | disposition home or self-care (01) | DRG 440 ==
LOC: ER 19:47 → OBS 21:59 → ICU 02-13 01:47
PROVIDERS: ADMIT Obstetrics & Gynecology Obstetrics; ATTEND Internal Medicine
DX: K85.00 Idiopathic acute pancreatitis without necrosis or infection (principal); R10.84 Generalized abdominal pain; R11.2 Nausea with vomiting, unspecified; I10 Essential (primary) hypertension; R19.7 Diarrhea, unspecified; R53.1 Weakness; R53.83 Other fatigue; E78.2 Mixed hyperlipidemia; F41.8 Other specified anxiety disorders; K21.9 Gastro-esophageal reflux disease without esophagitis; E03.8 Other specified hypothyroidism; M79.7 Fibromyalgia
CPT/HCPCS: 36415; 74176; 80053; 80061; 81001; 82150; 82550; 82553; 83690; 83735; 84132; 84484; 85025; 85610; 85730; 87070; 87502; 87880; 93005; 96365; 96367; 96374; 96375; 99285; A4222; S0028; J1885; J2060; J2175; J2405; J2550; J3480; J3490

== ENCOUNTER 2017-03-22 08:25 | Emergency (ER) | payer SELFPAY ==
--- NOTE | 2017-03-22 08:41 | DR.GENAD ---
HPI - PCP Primary Care Physician: contreras - Complaint/Symptoms Chief Complaint Doctors Comments: Patient presented to the ED with complaint of stomach pain this morning and last night. She reports that she was admitted and [facility] 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 She was given medication for pain but has not taken it but did medrano zofran for naused. She admits to fever on last night, her significant other with the viral crud. She reports that her blood pressure has been elevated and was put on clonidine patch in addition to her other BP medicine. Chief Complaint:: pt stated she was d/c with acute pancreatics about 4 weeks ago and was admited to the hospital. was d/c sometime before . she stated since then her abd has been swollen and very painful but this morning the pain was to bad. - Source History Provided: Patient - Mode of Arrival Mode of Arrival: EMS - Timing Onset of Chief Complaint: 02/20/17 PMH - PMH Past Medical History: Yes Past Medical History: Anemia, Hypertension Past Surgical History: Yes Surgical History: Hysterectomy - Family History History of Family Medical Conditions: Yes Family Medical History: Hypertension - Social History Does patient currently use any type of tobacco product: No Have you used tobacco products in the last 12 months: No Type of Tobacco Use: None Does any household member use tobacco: No Alcohol Use: None Do you use any recreational Drugs:: No Lives With: Family Lives Where: Home - infectious screening In the last 2 months have you had wt loss of >10#?: NO Have you had fever, night sweats or hemotysis?: No Have you traveled outside the country in the last 6 months?: No Isolation: Standard ROS - Review of Systems Eyes: No Symptoms Reported ENTM: No Symptoms Reported Respiratoy: No Symptoms Reported Cardiovascular: No Symptoms Reported Gastrointestinal/Abdominal: No Symptoms Reported, Abdominal Pain, Nausea. negative: Constipation, Diarrhea Genitourinary: No Symptoms Reported Neurological: No Symptoms Reported Musculoskeletal: No Symptoms Reported Integumentary: No Symptoms Reported Hematologic/Lymphatic: No Symptoms Reported Endocrine: No Symptoms Reported Psychiatric: No Symptoms Reported All Other Systems: Reviewed and Negative PE - Vital Signs Vitals: Temperature 98.9 F Pulse Rate 84 Respiratory Rate 16 Blood Pressure [Left Arm] 168/93 Blood Pressure [Right Arm] 131/90 Blood Pressure 179/103 O2 Sat by Pulse Oximetry 100 - General General Appearance: Alert, In No Apparent Distress - Head Head Exam: Normal Inspection, Atraumatic - Eyes Eye exam: Normal Appearance, PERRL, EOMI. negative: Conjunctival Injection - ENT ENT Exam: Normal Exam, Normal Oropharynx External Ear Exam: Normal External Inspection TM/Canal Exam: Bilateral Normal Nose Exam: Normal Nose Exam Mouth Exam: Normal Inspection Throat Exam: Normal Inspection - Neck Neck Exam: Normal Inspection - Chest Chest Inspection: Normal Inspection, Symmetric Chest Wall Rise - Respiratory Respiratory Exam: Normal Lung Sounds Bilat Respiratory Exam: Bilateral Clear to Auscultation - Cardiovascular Cardiovascular Exam: Regular Rate, Normal Rhythm - Abdominal Exam Abdominal Exam: Distention, Tenderness Abdominal Tenderness: Diffuse - Extremities Extremities Exam: Normal Inspection, Full ROM - Back Back Exam: Normal Inspection - Neurologic Neurological Exam: Alert, Oriented X3, CN II-XII Intact - Psychiatric Psychiatric Exam: Normal Affect - Skin Skin Exam: Warm, Dry Course - Reevaluation 1st: Improved - Education/Counseling Educated On: Treatment, Diagnosis, Prognosis, Needs for Follow Up ROR - Labs Reviewed Laboratory Results Reviewed?: Yes (low potassium) Result Diagrams: 03/22/17 08:50 03/22/17 08:50 Laboratory: WBC 6.3 X10^3/uL (3.6-10.0) 03/22/17 08:50 RBC 3.88 X10^6/uL (3.5-5.4) 03/22/17 08:50 Hgb 12.5 g/dL (12.0-16.0) 03/22/17 08:50 Hct 36.2 % (36.0-47.0) 03/22/17 08:50 MCV 93.3 fL (80.0-100.0) 03/22/17 08:50 MCH 32.2 pg (27.0-34.0) 03/22/17 08:50 MCHC 34.5 g/dL (33.0-35.0) 03/22/17 08:50 RDW 12.6 % (11.6-16.5) 03/22/17 08:50 Plt Count 152 X10^3/uL (150.0-450.0) 03/22/17 08:50 MPV 8.5 fL (7.4-11.0) 03/22/17 08:50 Neut % 77.4 % (42.0-75.0) H 03/22/17 08:50 Lymph % 13.1 % (21.0-51.0) L 03/22/17 08:50 [place] % 8.7 % (0.0-13.0) 03/22/17 08:50 Eos % 0.2 % (0.9-2.9) L 03/22/17 08:50 Baso % 0.6 % (0.2-1.0) 03/22/17 08:50 Neut # 4.9 x10^3/uL (2.2-4.8) H 03/22/17 08:50 Lymph # 0.8 X10^3/uL (1.3-2.9) L 03/22/17 08:50 [place] # 0.5 x10^3/uL (0.3-0.8) 03/22/17 08:50 Eos # 0.0 x10^3/uL (0.0-0.2) 03/22/17 08:50 Baso # 0.0 X10^3/uL (0.0-0.1) 03/22/17 08:50 Absolute Nucleated RBC 0.1 /100WBC 03/22/17 08:50 Sodium 137 mmol/L (136-145) 03/22/17 08:50 Corrected Sodium 138 mmol/L (136-145) 03/22/17 08:50 Potassium 3.2 mmol/L (3.5-5.1) L 03/22/17 08:50 Chloride 101 mmol/L (98-107) 03/22/17 08:50 Carbon Dioxide 24.6 mmol/L (21-32) 03/22/17 08:50 BUN 12 mg/dL (7-18) 03/22/17 08:50 Creatinine 0.97 mg/dL (0.55-1.02) 03/22/17 08:50 Est GFR (MDRD) Af Amer > 60 (>60) 03/22/17 08:50 Est GFR (MDRD) Non-Af > 60 (>60) 03/22/17 08:50 Glucose 125 mg/dL (65-99) H 03/22/17 08:50 Calcium 8.8 mg/dL (8.5-10.1) 03/22/17 08:50 Corrected Calcium TNP 03/22/17 08:50 Total Bilirubin 0.60 mg/dL (0.2-1.0) 03/22/17 08:50 AST 13 Units/L (15-37) L 03/22/17 08:50 ALT 23 Units/L (12-78) 03/22/17 08:50 Alkaline Phosphatase 72 Units/L (46-116) 03/22/17 08:50 C-Reactive Protein 15.50 mg/L (0-3.0) H 03/22/17 08:50 Total Protein 7.0 g/dL (6.4-8.2) 03/22/17 08:50 Albumin 3.4 g/dL (3.4-5.0) 03/22/17 08:50 Globulin 3.6 g/dL (2.5-4.5) 03/22/17 08:50 Albumin/Globulin Ratio 0.9 Ratio (1.1-2.1) L 03/22/17 08:50 Amylase 43 Units/L (25-115) 03/22/17 08:50 Lipase 104 Units/L (73-393) 03/22/17 08:50 Specimen Type Random urine 03/22/17 09:34 Urine Color Yellow (YELLOW) 03/22/17 09:34 Urine Appearance Slightly hazy (CLEAR) 03/22/17 09:34 Urine pH 7.0 (5.0 - 8.0) 03/22/17 09:34 Ur Specific [place] 1.010 (1.000-1.030) 03/22/17 09:34 Urine Protein 1+ (NEGATIVE) 03/22/17 09:34 Urine Glucose (UA) Negative (NEGATIVE) 03/22/17 09:34 Urine Ketones Negative (NEGATIVE) 03/22/17 09:34 Urine Occult Blood 2+ (NEGATIVE) 03/22/17 09:34 Urine Nitrite Negative (NEGATIVE) 03/22/17 09:34 Urine Bilirubin Negative (NEGATIVE) 03/22/17 09:34 Urine Urobilinogen Normal (NORMAL) 03/22/17 09:34 Ur Leukocyte Esterase 1+ (NEGATIVE) 03/22/17 09:34 Urine RBC 3-5 /HPF (NEGATIVE) 01/11/18 09:34 Urine WBC 0-2 /HPF (NEGATIVE) 03/22/17 09:34 Ur Squamous Epith Cells Rare /HPF (NEGATIVE) 03/22/17 09:34 Urine Bacteria Trace /HPF (NEGATIVE) 03/22/17 09:34 Urine Mucus Few /HPF (NEGATIVE) 03/22/17 09:34 Ur Culture Indicated? No/not indicated 03/22/17 09:34 - XRAY XRAY Interpreted by: Radiologist (CT Abd/Pel: Moderatge large amunt stool throughout the colon suggestive of constipation. Left upper pole there is a 1mm calculus non obstructing. No evidence of diverticullitis ) - Diagnosis Discharge Problem: Hypokalemia Constipation Qualifiers: Constipation type: slow transit constipation Qualified Code(s): K59.01 - Slow transit constipation - Discharge Plan Condition: Stable - Follow ups/Referrals Follow ups/Referrals: Mark Mc [Primary Care Provider] - 3 days - Instructions
[2017-03-22 08:47] VITALS: BP 179/103; BMI 25.0
[2017-03-22 09:09] LABS: ALANINE AMINOTRANSFERASE 23 Units/L (12-78); ALBUMIN 3.4 g/dL (3.4-5.0); ALKALINE PHOSPHATASE 72 Units/L (46-116); AMYLASE 43 Units/L (25-115); ASPARTATE AMINO TRANSFERASE 13 Units/L (15-37); BLOOD UREA NITROGEN 12 mg/dL (7-18); CALCIUM 8.8 mg/dL (8.5-10.1); CARBON DIOXIDE 24.6 mmol/L (21-32); CHLORIDE 101 mmol/L (98-107); COR NA(FOR HYPERGLY) 138 mmol/L (136-145); CREATININE 0.97 mg/dL (0.55-1.02); LIPASE 104 Units/L (73-393); SODIUM 137 mmol/L (136-145); eGFR BLACK RACES > 60 (>60); eGFR NON BLACK RACES > 60 (>60)
--- NOTE | 2017-03-22 09:12 | RAD ---
Indication: Pain . Exam: KUB Technique: A supine view the abdomen was obtained. Comparison: 02/15/2017 Findings: There are some mildly dilated loops of colon throughout the abdomen with moderate feces thr oughout which is more prominent. There is no free air. No renal stones are seen and the bones are int act. Impression: Moderate constipation with a questionable associated mild colonic ileus which is more pro minent. Reported By:
[2017-03-22 09:13] LABS: BASOPHILS % (AUTO) 0.6 % (0.2-1.0); EOSINOPHILS % (AUTO) 0.2 % (0.9-2.9); HEMATOCRIT 36.2 % (36.0-47.0); HEMOGLOBIN 12.5 g/dL (12.0-16.0); LYMPHOCYTES # (AUTO) 0.8 X10^3/uL (1.3-2.9); LYMPHOCYTES % (AUTO) 13.1 % (21.0-51.0); MEAN CORPUSCULAR HEMOGLOBIN 32.2 pg (27.0-34.0); MEAN CORPUSCULAR HGB CONC 34.5 g/dL (33.0-35.0); MEAN CORPUSCULAR VOLUME 93.3 fL (80.0-100.0); MEAN PLATELET VOLUME 8.5 fL (7.4-11.0); MONOCYTES # (AUTO) 0.5 x10^3/uL (0.3-0.8); MONOCYTES % (AUTO) 8.7 % (0.0-13.0); NEUTROPHILS # (AUTO) 4.9 x10^3/uL (2.2-4.8); NEUTROPHILS % (AUTO) 77.4 % (42.0-75.0); PLATELET COUNT 152 X10^3/uL (150.0-450.0); RED BLOOD COUNT 3.88 X10^6/uL (3.5-5.4); RED CELL DISTRIBUTION WIDTH 12.6 % (11.6-16.5); WHITE BLOOD COUNT 6.3 X10^3/uL (3.6-10.0)
--- NOTE | 2017-03-22 09:35 | CT ---
HISTORY: Abdominal distention Study: CT abdomen pelvis without contrast Comparison: 02/15/2017 Technique: Axial noncontrast images with coronal and sagittal reformats. Dose reduction procedures we re used with mA/kv adjusted for body size. This examination is limited due to the lack of intravenous and oral contrast. Findings: The lung bases are clear. There is a hiatal hernia present. The liver, spleen, adrenal glands, and pa ncreas are within normal limits to the limitations of an unenhanced examination. No opaque stones are visible within the gallbladder. The kidneys are unobstructed. No right renal calculi are identified. There is a 1 mm nonobstructing left upper pole renal calculus present. No ureteral calculi are ident ified. The appendix is normal. No enlarged intraperitoneal or retroperitoneal lymphadenopathy is iden tified. There are no findings suggestive of diverticulitis or colitis. There is a moderately large am ount of stool throughout the colon suggestive of constipation. There are no findings suggestive of sm all or large bowel obstruction. Examination of the pelvis demonstrated no evidence for pelvic masses, pelvic fluid, or pelvic lymphadenopathy. No definite bladder abnormality is identified. No lytic or blastic skeletal lesions are identified. IMPRESSION: Hiatal hernia 1 mm nonobstructing left upper pole renal calculus Constipation Reported By:
[2017-03-22 09:43] LABS: BILIRUBIN,URINE NEGATIVE (NEGATIVE); BLOOD/HEMOGLOBIN,URINE 2+ (NEGATIVE); GLUCOSE, URINE NEGATIVE (NEGATIVE); KETONES,URINE NEGATIVE (NEGATIVE); LEUKOCYTE ESTERASE ,URINE 1+ (NEGATIVE); NITRITES,URINE NEGATIVE (NEGATIVE); PROTEIN,URINE 1+ (NEGATIVE); UROBILINOGEN,URINE NORMAL (NORMAL)
[2017-03-22] MEDS ORDERED: K-LYTE EFFERVESCENT ONE (09:43)
[2017-03-22 09:51] LABS: APPEARANCE,URINE SLIGHTLY HAZY (CLEAR); BACTERIA,URINE TRACE /HPF (NEGATIVE); COLOR,URINE YELLOW (YELLOW); MUCUS,URINE FEW /HPF (NEGATIVE); SQUAMOUS EPITHELIAL CELL,UR RARE /HPF (NEGATIVE)
[2017-03-22] MEDS ORDERED: K-LYTE EFFERVESCENT PO SCH (10:00)
== END 2017-03-22 10:45 | disposition home or self-care (01) ==
LOC: ER 08:28
DX: E87.6 Hypokalemia (principal); K59.01 Slow transit constipation; N20.0 Calculus of kidney; K44.9 Diaphragmatic hernia without obstruction or gangrene
CPT/HCPCS: 36415; 74018; 74176; 80053; 81001; 82150; 83690; 85025; 86140; 99283

== ENCOUNTER 2017-04-02 19:36 | Emergency (ER) | payer SELFPAY ==
[2017-04-02] MEDS ORDERED: NS 1000 ML 1,000 ML ONE (19:41)
[2017-04-02 19:45] VITALS: BMI 22.6
[2017-04-02] MEDS ORDERED: NS 1000 ML 1,000 ML IV ONE (19:46)
[2017-04-02] MEDS ORDERED: NARCAN INJ IVP ONE (20:02)
[2017-04-02] MEDS ORDERED: NARCAN INJ ONE (20:02)
--- NOTE | 2017-04-02 20:06 | DR.GENAD ---
HPI - PCP Primary Care Physician: contreras - Complaint/Symptoms Chief Complaint Doctors Comments: Patient presented to the ED via EMS today with complaint being drowsy today at about 1700 s/p taking oxycontin 15mg for her chronic back pain. Patient states that this is the first times taking oxycontin 15mg just given Rx from [facility]. Chief Complaint:: pt to ed for stomach pain n/v pt given narcan 2 mg in route to ER pt's pupils were pinpoint pt seems drowsy and disoriented at time of triage - Source History Provided: Patient - Mode of Arrival Mode of Arrival: EMS - Timing Onset of Chief Complaint: 04/02/17 PMH - PMH Past Medical History: Yes Past Medical History: Anemia, Hypertension Past Surgical History: Yes Surgical History: Hysterectomy - Family History History of Family Medical Conditions: Yes Family Medical History: Hypertension - Social History Does any household member use tobacco: No Alcohol Use: None Do you use any recreational Drugs:: No Lives With: Family Lives Where: Home - infectious screening In the last 2 months have you had wt loss of >10#?: NO Have you had fever, night sweats or hemotysis?: No Have you traveled outside the country in the last 6 months?: No Isolation: Standard ROS - Review of Systems Eyes: No Symptoms Reported ENTM: No Symptoms Reported Respiratoy: No Symptoms Reported Cardiovascular: No Symptoms Reported Gastrointestinal/Abdominal: No Symptoms Reported Genitourinary: No Symptoms Reported Neurological: No Symptoms Reported Musculoskeletal: No Symptoms Reported Integumentary: No Symptoms Reported Hematologic/Lymphatic: No Symptoms Reported Endocrine: No Symptoms Reported Psychiatric: No Symptoms Reported All Other Systems: Reviewed and Negative PE - Vital Signs Vitals: Temperature 97.8 F Pulse Rate [Right Brachial] 57 Pulse Rate 58 Respiratory Rate 22 Blood Pressure [Left Arm] 190/109 Blood Pressure [Right Arm] 131/90 Blood Pressure 176/107 O2 Sat by Pulse Oximetry 97 - General General Appearance: Alert, In No Apparent Distress - Head Head Exam: Normal Inspection, Atraumatic - Eyes Eye exam: Normal Appearance, PERRL, EOMI - ENT ENT Exam: Normal Exam External Ear Exam: Normal External Inspection TM/Canal Exam: Bilateral Normal Nose Exam: Normal Nose Exam Mouth Exam: Normal Inspection Throat Exam: Normal Inspection - Neck Neck Exam: Normal Inspection, Full ROM - Chest Chest Inspection: Normal Inspection, Symmetric Chest Wall Rise - Respiratory Respiratory Exam: Normal Lung Sounds Bilat Respiratory Exam: Bilateral Clear to Auscultation - Cardiovascular Cardiovascular Exam: Regular Rate, Normal Rhythm - Abdominal Exam Abdominal Exam: Normal Inspection, Normal Bowel Sounds Abdominal Tenderness: negative: RUQ, RLQ, LUQ, LLQ, Epigastrium, Suprapubic, Diffuse, Mild, Moderate, Severe, Other - Extremities Extremities Exam: Normal Inspection, Full ROM - Back Back Exam: Normal Inspection, Tenderness (chronic pain) - Neurologic Neurological Exam: Alert, Oriented X3, CN II-XII Intact - Psychiatric Psychiatric Exam: Normal Affect - Skin Skin Exam: Warm, Dry Course - Treatment Treatment: Narcan 0.4mg x 2, alert in No acute distress. Patient states that she was not trying to comit suicide and denies suicidal ideations. - Reevaluation 1st: Improved ROR - Labs Reviewed Laboratory Results Reviewed?: Yes (Lab reported positive results on all Drugs, wanted to repeat) Result Diagrams: 04/02/17 20:04 04/02/17 20:04 Laboratory: WBC 13.3 X10^3/uL (3.6-10.0) H 04/02/17 20:04 RBC 3.53 X10^6/uL (3.5-5.4) 04/02/17 20:04 Hgb 11.4 g/dL (12.0-16.0) L 04/02/17 20:04 Hct 33.0 % (36.0-47.0) L 04/02/17 20:04 MCV 93.7 fL (80.0-100.0) 04/02/17 20:04 MCH 32.3 pg (27.0-34.0) 04/02/17 20:04 MCHC 34.5 g/dL (33.0-35.0) 04/02/17 20:04 RDW 12.4 % (11.6-16.5) 04/02/17 20:04 Plt Count 176 X10^3/uL (150.0-450.0) 04/02/17 20:04 MPV 8.1 fL (7.4-11.0) 04/02/17 20:04 Neut % 76.7 % (42.0-75.0) H 04/02/17 20:04 Lymph % 15.2 % (21.0-51.0) L 04/02/17 20:04 [place] % 6.9 % (0.0-13.0) 04/02/17 20:04 Eos % 0.7 % (0.9-2.9) L 04/02/17 20:04 Baso % 0.5 % (0.2-1.0) 04/02/17 20:04 Neut # 10.2 x10^3/uL (2.2-4.8) H 04/02/17 20:04 Lymph # 2.0 X10^3/uL (1.3-2.9) 04/02/17 20:04 [place] # 0.9 x10^3/uL (0.3-0.8) H 04/02/17 20:04 Eos # 0.1 x10^3/uL (0.0-0.2) 04/02/17 20:04 Baso # 0.1 X10^3/uL (0.0-0.1) 04/02/17 20:04 Absolute Nucleated RBC 0.0 /100WBC 04/02/17 20:04 Sodium 138 mmol/L (136-145) 04/02/17 20:04 Corrected Sodium 138 mmol/L (136-145) 04/02/17 20:04 Potassium 3.5 mmol/L (3.5-5.1) 04/02/17 20:04 Chloride 105 mmol/L (98-107) 04/02/17 20:04 Carbon Dioxide 23.1 mmol/L (21-32) 04/02/17 20:04 BUN 19 mg/dL (7-18) H 04/02/17 20:04 Creatinine 1.19 mg/dL (0.55-1.02) H 04/02/17 20:04 Est GFR (MDRD) Af Amer > 60 (>60) 04/02/17 20:04 Est GFR (MDRD) Non-Af 50 (>60) L 04/02/17 20:04 Glucose 114 mg/dL (65-99) H 04/02/17 20:04 Calcium 8.3 mg/dL (8.5-10.1) L 04/02/17 20:04 Corrected Calcium 9.1 mg/dL (8.5-10.1) 04/02/17 20:04 Total Bilirubin 0.30 mg/dL (0.2-1.0) 04/02/17 20:04 AST 7 Units/L (15-37) L 04/02/17 20:04 ALT 15 Units/L (12-78) 04/02/17 20:04 Alkaline Phosphatase 65 Units/L (46-116) 04/02/17 20:04 C-Reactive Protein 52.80 mg/L (0-3.0) H 04/02/17 20:04 Total Protein 6.5 g/dL (6.4-8.2) 04/02/17 20:04 Albumin 3.0 g/dL (3.4-5.0) L 04/02/17 20:04 Globulin 3.5 g/dL (2.5-4.5) 04/02/17 20:04 Albumin/Globulin Ratio 0.9 Ratio (1.1-2.1) L 04/02/17 20:04 Specimen Type Clean catch urine 04/02/17 20:20 Urine Color Yellow (YELLOW) 04/02/17 20:20 Urine Appearance Hazy (CLEAR) 04/02/17 20:20 Urine pH 5.0 (5.0 - 8.0) 04/02/17 20:20 Ur Specific [place] 1.020 (1.000-1.030) 04/02/17 20:20 Urine Protein 2+ (NEGATIVE) 04/02/17 20:20 Urine Glucose (UA) Negative (NEGATIVE) 04/02/17 20:20 Urine Ketones 1+ (NEGATIVE) 04/02/17 20:20 Urine Occult Blood 1+ (NEGATIVE) 04/02/17 20:20 Urine Nitrite Negative (NEGATIVE) 04/02/17 20:20 Urine Bilirubin 1+ (NEGATIVE) 04/02/17 20:20 Urine Urobilinogen 1+ (NORMAL) 04/02/17 20:20 Ur Leukocyte Esterase 1+ (NEGATIVE) 04/02/17 20:20 Urine RBC 0-2 /HPF (NEGATIVE) 04/02/17 20:20 Urine WBC 0-2 /HPF (NEGATIVE) 04/02/17 20:20 Ur Squamous Epith Cells Rare /HPF (NEGATIVE) 04/02/17 20:20 Urine Bacteria Trace /HPF (NEGATIVE) 04/02/17 20:20 Ur Culture Indicated? No/not indicated 01/22/18 20:20 - Diagnosis Discharge Problem: Narcotic induced mental alteration - Discharge Plan Condition: Stable - Follow ups/Referrals Follow ups/Referrals: NFD,None [Primary Care Provider] - 3 days - Instructions
[2017-04-02 20:14] LABS: BASOPHILS # (AUTO) 0.1 X10^3/uL (0.0-0.1); BASOPHILS % (AUTO) 0.5 % (0.2-1.0); EOSINOPHILS # (AUTO) 0.1 x10^3/uL (0.0-0.2); EOSINOPHILS % (AUTO) 0.7 % (0.9-2.9); HEMOGLOBIN 11.4 g/dL (12.0-16.0); LYMPHOCYTES % (AUTO) 15.2 % (21.0-51.0); MEAN CORPUSCULAR HEMOGLOBIN 32.3 pg (27.0-34.0); MEAN CORPUSCULAR HGB CONC 34.5 g/dL (33.0-35.0); MEAN CORPUSCULAR VOLUME 93.7 fL (80.0-100.0); MEAN PLATELET VOLUME 8.1 fL (7.4-11.0); MONOCYTES # (AUTO) 0.9 x10^3/uL (0.3-0.8); MONOCYTES % (AUTO) 6.9 % (0.0-13.0); NEUTROPHILS # (AUTO) 10.2 x10^3/uL (2.2-4.8); NEUTROPHILS % (AUTO) 76.7 % (42.0-75.0); PLATELET COUNT 176 X10^3/uL (150.0-450.0); RED BLOOD COUNT 3.53 X10^6/uL (3.5-5.4); RED CELL DISTRIBUTION WIDTH 12.4 % (11.6-16.5); WHITE BLOOD COUNT 13.3 X10^3/uL (3.6-10.0)
[2017-04-02 20:26] LABS: ALANINE AMINOTRANSFERASE 15 Units/L (12-78); ALKALINE PHOSPHATASE 65 Units/L (46-116); ASPARTATE AMINO TRANSFERASE 7 Units/L (15-37); BLOOD UREA NITROGEN 19 mg/dL (7-18); CALCIUM 8.3 mg/dL (8.5-10.1); CARBON DIOXIDE 23.1 mmol/L (21-32); CHLORIDE 105 mmol/L (98-107); COR CA(FOR HYPOALB) 9.1 mg/dL (8.5-10.1); COR NA(FOR HYPERGLY) 138 mmol/L (136-145); CREATININE 1.19 mg/dL (0.55-1.02); SODIUM 138 mmol/L (136-145); TOTAL PROTEIN 6.5 g/dL (6.4-8.2); eGFR BLACK RACES > 60 (>60); eGFR NON BLACK RACES 50 (>60)
[2017-04-02 20:28] LABS: BILIRUBIN,URINE 1+ (NEGATIVE); BLOOD/HEMOGLOBIN,URINE 1+ (NEGATIVE); GLUCOSE, URINE NEGATIVE (NEGATIVE); KETONES,URINE 1+ (NEGATIVE); LEUKOCYTE ESTERASE ,URINE 1+ (NEGATIVE); NITRITES,URINE NEGATIVE (NEGATIVE); PROTEIN,URINE 2+ (NEGATIVE); UROBILINOGEN,URINE 1+ (NORMAL)
[2017-04-02 20:43] LABS: APPEARANCE,URINE HAZY (CLEAR); BACTERIA,URINE TRACE /HPF (NEGATIVE); COLOR,URINE YELLOW (YELLOW); RBC,URINE 0-2 /HPF (NEGATIVE); SQUAMOUS EPITHELIAL CELL,UR RARE /HPF (NEGATIVE)
[2017-04-02] MEDS ORDERED: CATAPRES TAB 0.2 MG ONE (22:15)
[2017-04-02] MEDS ORDERED: CATAPRES TAB 0.2 MG PO ONE (22:15)
[2017-04-02 22:52] VITALS: BP 135/89
== END 2017-04-02 22:52 | disposition home or self-care (01) ==
LOC: ER 19:39
DX: R41.82 Altered mental status, unspecified (principal); T40.2X5A Adverse effect of other opioids, initial encounter; Y92.89 Other specified places as the place of occurrence of the external cause
CPT/HCPCS: 36415; 80053; 80307; 81001; 85025; 86140; 96365; 96374; 99283; G0434; J2310

== ENCOUNTER 2017-05-13 19:42 | Observation (INO) | payer SELFPAY ==
[2017-05-13 19:50] VITALS: BMI 23.5
--- NOTE | 2017-05-13 19:56 | DR.GENAD ---
HPI - PCP Primary Care Physician: STEVE - HPI Comment HPI Comment: FREQUENT FALLS RECENTLY. CONFUSE AFTER LAST FALL DURING WHICH PATIENT HIT HER HEAD. HAVING HEADACHE. BP RUNNING HIGH. MEDICATION ADJUSTED RECENTLY. BP NOT STABILIZE YET. DENIES FEVER OR DYSURIA. DENIES URI SYMTOMS. - Complaint/Symptoms Chief Complaint Doctors Comments: AMS, FELL YESTERDAY AND HIT HEAD. Chief Complaint:: FELL YESTERDAY AFTER STANDING, GOT DIZZY-FELL- HIT HEAD NOTE ABRASION TO RIGHT FRONT SCALP . NO ACTIVE BLEEDING. HAS TAKEN IBUPROFEN. SISTER STATES, "I CALLED TO CHECK ON HER TODAY, AND SHE DOESN'T MAKE SENSE TO ME." Self Treatment fo Chief Complaint: CLONODINE AT 1700 FOR HIGH BP, QUIT TAKING ALL OF MEDS SINCE SHE WAS IN HOSPITAL LAST. - Nurses notes reviewed Nurses Notes Review: Yes - Source History Provided: Patient - Mode of Arrival Mode of Arrival: Ambulatory - Timing Onset of Chief Complaint: 05/12/17 Came on: Suddenly - Duration Duration: Constant Duration: Days - Severity Severity: Moderate PMH - PMH Past Medical History: Yes Past Medical History: Anemia, Hypertension Past Surgical History: Yes Surgical History: Hysterectomy - Family History History of Family Medical Conditions: Yes Family Medical History: Hypertension - Social History Does patient currently use any type of tobacco product: No Have you used tobacco products in the last 12 months: No Type of Tobacco Use: None Does any household member use tobacco: No Alcohol Use: None Do you use any recreational Drugs:: No Lives With: Significant Other Lives Where: Home - infectious screening Have you traveled outside the country in the last 6 months?: No Isolation: Standard ROS - Review of Systems Constitutional: Weakness, Fatigue, Loss of Appetite. negative: Chills, Fever Eyes: negative: Eye Pain, Discharge ENTM: negative: Ear Pain, Nose Discharge, Nose Congestion, Throat Pain Respiratoy: Non-Productive Cough, Short of Breath. negative: Wheezing, Hemoptysis Cardiovascular: Syncope (NEAR SYNCOPAL EPISODES.). negative: Chest Pain Gastrointestinal/Abdominal: No Symptoms Reported. negative: Abdominal Pain, Diarrhea, Nausea, Vomiting Genitourinary: negative: Dysuria, Frequency, Hematuria Neurological: Headache, Weakness, Dizziness Musculoskeletal: Muscle Pain Integumentary: No Symptoms Reported Hematologic/Lymphatic: No Symptoms Reported Endocrine: No Symptoms Reported All Other Systems: Reviewed and Negative PE - Vital Signs Vitals: Temperature 98.6 F Pulse Rate [Left Brachial] 88 Pulse Rate 120 Respiratory Rate 20 Blood Pressure [Left Arm] 140/95 Blood Pressure [Right Arm] 131/90 Blood Pressure 170/129 O2 Sat by Pulse Oximetry 99 - General Limitations: Altered Mental Status General Appearance: Alert - Head Head Exam: Other (RT PARIENTAL BRUISING AND SWELLING.) - Eyes Eye exam: PERRL, EOMI. negative: Scleral Icterus, Conjunctival Injection, Periorbital Swelling, Periorbital Tenderness - ENT ENT Exam: Normal External Ear Exam TM/Canal Exam: Bilateral Normal Nose Exam: Normal Nose Exam Mouth Exam: Normal Inspection Throat Exam: Normal Inspection - Neck Neck Exam: Trachea Midline - Chest Chest Inspection: Symmetric Chest Wall Rise - Respiratory Respiratory Exam: Normal Lung Sounds Bilat Respiratory Exam: Bilateral Rhonchi, Lower Rhonchi - Cardiovascular Cardiovascular Exam: Regular Rate, Normal Rhythm, Normal Heart Sounds - Abdominal Exam Abdominal Exam: Normal Bowel Sounds, Soft. negative: Tenderness - Extremities Extremities Exam: Normal Inspection - Back Back Exam: Normal Inspection - Neurologic Neurological Exam: Alert, Other (CONFUSE,SLOW MENTATION) - Psychiatric Psychiatric Exam: Flat Affect - Skin Skin Exam: Erythema MDM - Additional Information Additional Information Obtained From: Family - Differential Diagnosis Differential Diagnosis: AMS, FREQUENT FALLS, HYPERTENSION Course - Treatment Treatment: SEE ORDERS. - Consultation Consultation Comments: DISCUSS PATIENT WITH DR. ABBASI. HE WILL ADMIT PATIENT. - Education/Counseling Education/Counseling: Patient, Family, Education Educated On: Diagnosis ROR - Labs Reviewed Laboratory Results Reviewed?: Yes Result Diagrams: 05/13/17 20:10 05/13/17 20:10 Laboratory: WBC 5.7 X10^3/uL (3.6-10.0) 05/13/17 20:10 RBC 4.34 X10^6/uL (3.5-5.4) 05/13/17 20:10 Hgb 13.9 g/dL (12.0-16.0) 05/13/17 20:10 Hct 40.0 % (36.0-47.0) 05/13/17 20:10 MCV 92.1 fL (80.0-100.0) 05/13/17 20:10 MCH 32.1 pg (27.0-34.0) 05/13/17 20:10 MCHC 34.8 g/dL (33.0-35.0) 05/13/17 20:10 RDW 12.9 % (11.6-16.5) 05/13/17 20:10 Plt Count 231 X10^3/uL (150.0-450.0) 05/13/17 20:10 MPV 7.8 fL (7.4-11.0) 05/13/17 20:10 Neut % 55.5 % (42.0-75.0) 05/13/17 20:10 Lymph % 36.7 % (21.0-51.0) 05/13/17 20:10 [place] % 5.3 % (0.0-13.0) 05/13/17 20:10 Eos % 1.8 % (0.9-2.9) 05/13/17 20:10 Baso % 0.7 % (0.2-1.0) 05/13/17 20:10 Neut # 3.2 x10^3/uL (2.2-4.8) 05/13/17 20:10 Lymph # 2.1 X10^3/uL (1.3-2.9) 05/13/17 20:10 [place] # 0.3 x10^3/uL (0.3-0.8) 05/13/17 20:10 Eos # 0.1 x10^3/uL (0.0-0.2) 05/13/17 20:10 Baso # 0.0 X10^3/uL (0.0-0.1) 05/13/17 20:10 Absolute Nucleated RBC 0.0 /100WBC 05/13/17 20:10 Sodium 140 mmol/L (136-145) 05/13/17 20:10 Corrected Sodium 141 mmol/L (136-145) 05/13/17 20:10 Potassium 3.5 mmol/L (3.5-5.1) 05/13/17 20:10 Chloride 103 mmol/L (98-107) 05/13/17 20:10 Carbon Dioxide 28.7 mmol/L (21-32) 05/13/17 20:10 BUN 11 mg/dL (7-18) 05/13/17 20:10 Creatinine 1.05 mg/dL (0.55-1.02) H 05/13/17 20:10 Est GFR (MDRD) Af Amer > 60 (>60) 05/13/17 20:10 Est GFR (MDRD) Non-Af 58 (>60) L 05/13/17 20:10 Glucose 131 mg/dL (65-99) H 05/13/17 20:10 Calcium 8.7 mg/dL (8.5-10.1) 05/13/17 20:10 Corrected Calcium 9.3 mg/dL (8.5-10.1) 05/13/17 20:10 Total Bilirubin 1.00 mg/dL (0.2-1.0) 05/13/17 20:10 AST 17 Units/L (15-37) 05/13/17 20:10 ALT 21 Units/L (12-78) 05/13/17 20:10 Alkaline Phosphatase 80 Units/L (46-116) 05/13/17 20:10 Creatine Kinase 108 Units/L (26-192) 05/13/17 20:10 CK-MB (CK-2) < 1.0 ng/mL (0-4.0) 05/13/17 20:10 CK/CKMB % Calc 0.9 % (<4) 05/13/17 20:10 Troponin I < 0.02 ng/mL (0-1.5) 05/13/17 20:10 Total Protein 7.4 g/dL (6.4-8.2) 05/13/17 20:10 Albumin 3.2 g/dL (3.4-5.0) L 05/13/17 20:10 Globulin 4.2 g/dL (2.5-4.5) 05/13/17 20:10 Albumin/Globulin Ratio 0.8 Ratio (1.1-2.1) L 05/13/17 20:10 Specimen Type Clean catch urine 05/13/17 22:14 Urine Color [place] (YELLOW) 05/13/17 22:14 Urine Appearance Clear (CLEAR) 05/13/17 22:14 Urine pH 6.5 (5.0 - 8.0) 05/13/17 22:14 Ur Specific [place] 1.005 (1.000-1.030) 05/13/17 22:14 Urine Protein 2+ (NEGATIVE) 05/13/17 22:14 Urine Glucose (UA) Negative (NEGATIVE) 05/13/17 22:14 Urine Ketones 1+ (NEGATIVE) 05/13/17 22:14 Urine Occult Blood 2+ (NEGATIVE) 05/13/17 22:14 Urine Nitrite Negative (NEGATIVE) 05/13/17 22:14 Urine Bilirubin 1+ (NEGATIVE) 05/13/17 22:14 Urine Urobilinogen 2+ (NORMAL) 05/13/17 22:14 Ur Leukocyte Esterase 1+ (NEGATIVE) 05/13/17 22:14 Urine RBC Rare /HPF (NONE SEEN) 05/13/17 22:14 Urine WBC None seen /HPF (NONE SEEN) 05/13/17 22:14 Ur Squamous Epith Cells Few /HPF (NEGATIVE) 05/13/17 22:14 Urine Bacteria Negative /HPF (NEGATIVE) 05/13/17 22:14 Hyaline Casts Few /LPF (NEGATIVE) 05/13/17 22:14 Urine Mucus Few /HPF (NEGATIVE) 05/13/17 22:14 Ur Culture Indicated? No/not indicated 05/13/17 22:14 - XRAY XRAY Findings: REPORT DISCUSS WITH PATIENT AND FAMILY. - EKG Rhythm: ST (EKG NOTED.) - Diagnosis Discharge Problem: Confusion, Frequent falls Altered mental state Qualifiers: Altered mental status type: transient alteration of awareness Qualified Code(s) : R40.4 - Transient alteration of awareness Hypertension Qualifiers: Hypertension type: essential hypertension Qualified Code(s): I10 - Essential ( primary) hypertension - Discharge Plan Disposition: ADMITTED INPATIENT Condition: Stable - Follow ups/Referrals - Instructions
--- NOTE | 2017-05-13 20:13 | RAD ---
Indication: Fall Exam: Portable chest Comparison: 07/08/2015 Findings: The heart is normal. The pulmonary vessels are normal. The lungs are hypoinflated. No conso lidation or effusion is seen. There is no pneumothorax. The bones are intact. Impression: Hypoinflation limiting the exam otherwise, stable with no acute abnormality seen. Reported By:
--- NOTE | 2017-05-13 20:23 | CT ---
Indication: Fall and right scalp abrasion Exam: CT head without contrast Comparison: 07/08/2015 Technique: Routine transaxial images were obtained through the brain without contrast. Findings: The ventricles are normal. No intracranial hemorrhage or edema is seen. There is no extra-a xial fluid collection or mass. The midline structures are unremarkable. There is mild scalp swelling along the right parietal region. No fracture is seen. Impression: Small scalp hematoma along the right parietal region with no acute intracranial or bony a bnormality seen. Reported By:
[2017-05-13 20:25] LABS: BASOPHILS % (AUTO) 0.7 % (0.2-1.0); EOSINOPHILS # (AUTO) 0.1 x10^3/uL (0.0-0.2); EOSINOPHILS % (AUTO) 1.8 % (0.9-2.9); HEMOGLOBIN 13.9 g/dL (12.0-16.0); LYMPHOCYTES # (AUTO) 2.1 X10^3/uL (1.3-2.9); LYMPHOCYTES % (AUTO) 36.7 % (21.0-51.0); MEAN CORPUSCULAR HEMOGLOBIN 32.1 pg (27.0-34.0); MEAN CORPUSCULAR HGB CONC 34.8 g/dL (33.0-35.0); MEAN CORPUSCULAR VOLUME 92.1 fL (80.0-100.0); MEAN PLATELET VOLUME 7.8 fL (7.4-11.0); MONOCYTES # (AUTO) 0.3 x10^3/uL (0.3-0.8); MONOCYTES % (AUTO) 5.3 % (0.0-13.0); NEUTROPHILS # (AUTO) 3.2 x10^3/uL (2.2-4.8); NEUTROPHILS % (AUTO) 55.5 % (42.0-75.0); PLATELET COUNT 231 X10^3/uL (150.0-450.0); RED BLOOD COUNT 4.34 X10^6/uL (3.5-5.4); RED CELL DISTRIBUTION WIDTH 12.9 % (11.6-16.5); WHITE BLOOD COUNT 5.7 X10^3/uL (3.6-10.0)
[2017-05-13 20:46] LABS: ALANINE AMINOTRANSFERASE 21 Units/L (12-78); ALBUMIN 3.2 g/dL (3.4-5.0); ALKALINE PHOSPHATASE 80 Units/L (46-116); ASPARTATE AMINO TRANSFERASE 17 Units/L (15-37); BLOOD UREA NITROGEN 11 mg/dL (7-18); CALCIUM 8.7 mg/dL (8.5-10.1); CARBON DIOXIDE 28.7 mmol/L (21-32); CHLORIDE 103 mmol/L (98-107); COR CA(FOR HYPOALB) 9.3 mg/dL (8.5-10.1); COR NA(FOR HYPERGLY) 141 mmol/L (136-145); CREATINE KINASE 108 Units/L (26-192); CREATINE KINASE MB < 1.0 ng/mL (0-4.0); CREATININE 1.05 mg/dL (0.55-1.02); SODIUM 140 mmol/L (136-145); TOTAL PROTEIN 7.4 g/dL (6.4-8.2); TROPONIN I < 0.02 ng/mL (0-1.5); eGFR BLACK RACES > 60 (>60); eGFR NON BLACK RACES 58 (>60)
[2017-05-13 20:48] LABS: CKMB % 0.9 % (<4)
[2017-05-13 22:40] LABS: BILIRUBIN,URINE 1+ (NEGATIVE); BLOOD/HEMOGLOBIN,URINE 2+ (NEGATIVE); GLUCOSE, URINE NEGATIVE (NEGATIVE); KETONES,URINE 1+ (NEGATIVE); LEUKOCYTE ESTERASE ,URINE 1+ (NEGATIVE); NITRITES,URINE NEGATIVE (NEGATIVE); PH,URINE 6.5 (5.0 - 8.0); PROTEIN,URINE 2+ (NEGATIVE); UROBILINOGEN,URINE 2+ (NORMAL)
[2017-05-13 22:53] LABS: APPEARANCE,URINE CLEAR (CLEAR); BACTERIA,URINE NEGATIVE /HPF (NEGATIVE); COLOR,URINE AMBER (YELLOW); HYALINE CASTS, URINE FEW /LPF (NEGATIVE); MUCUS,URINE FEW /HPF (NEGATIVE); RBC,URINE RARE /HPF (NONE SEEN); SQUAMOUS EPITHELIAL CELL,UR FEW /HPF (NEGATIVE)
[2017-05-13] MEDS: NS 1000 ML 1,000 ML IV SCH (23:29)
[2017-05-14 01:32] LABS: CREATINE KINASE 105 Units/L (26-192); CREATINE KINASE MB < 1.0 ng/mL (0-4.0); TROPONIN I < 0.02 ng/mL (0-1.5)
[2017-05-14] MEDS ORDERED: CATAPRES TAB 0.1 MG PO ONE (01:41)
[2017-05-14 06:14] LABS: EOSINOPHILS # (AUTO) 0.1 x10^3/uL (0.0-0.2); EOSINOPHILS % (AUTO) 2.1 % (0.9-2.9); HEMATOCRIT 36.6 % (36.0-47.0); HEMOGLOBIN 12.7 g/dL (12.0-16.0); LYMPHOCYTES # (AUTO) 2.2 X10^3/uL (1.3-2.9); LYMPHOCYTES % (AUTO) 47.3 % (21.0-51.0); MEAN CORPUSCULAR HEMOGLOBIN 31.9 pg (27.0-34.0); MEAN CORPUSCULAR HGB CONC 34.6 g/dL (33.0-35.0); MEAN CORPUSCULAR VOLUME 92.3 fL (80.0-100.0); MONOCYTES # (AUTO) 0.4 x10^3/uL (0.3-0.8); MONOCYTES % (AUTO) 8.4 % (0.0-13.0); NEUTROPHILS % (AUTO) 41.2 % (42.0-75.0); PLATELET COUNT 206 X10^3/uL (150.0-450.0); RED BLOOD COUNT 3.96 X10^6/uL (3.5-5.4); RED CELL DISTRIBUTION WIDTH 13.3 % (11.6-16.5); WHITE BLOOD COUNT 4.8 X10^3/uL (3.6-10.0)
[2017-05-14 06:24] LABS: ALANINE AMINOTRANSFERASE 19 Units/L (12-78); ALBUMIN 2.8 g/dL (3.4-5.0); ALKALINE PHOSPHATASE 66 Units/L (46-116); ASPARTATE AMINO TRANSFERASE 14 Units/L (15-37); BLOOD UREA NITROGEN 10 mg/dL (7-18); CALCIUM 8.1 mg/dL (8.5-10.1); CARBON DIOXIDE 25.1 mmol/L (21-32); CHLORIDE 106 mmol/L (98-107); COR CA(FOR HYPOALB) 9.1 mg/dL (8.5-10.1); CREATININE 0.85 mg/dL (0.55-1.02); MAGNESIUM 1.4 mg/dL (1.7-2.9); SODIUM 142 mmol/L (136-145); TOTAL PROTEIN 6.6 g/dL (6.4-8.2); eGFR BLACK RACES > 60 (>60); eGFR NON BLACK RACES > 60 (>60)
[2017-05-14 07:55] LABS: CKMB % 1.1 % (<4); CREATINE KINASE 88 Units/L (26-192); CREATINE KINASE MB < 1.0 ng/mL (0-4.0); TROPONIN I < 0.02 ng/mL (0-1.5)
[2017-05-14 08:33] VITALS: BP 159/89
[2017-05-14] MEDS: NS 1000 ML 1,000 ML IV SCH (09:15)
== END 2017-05-14 11:00 | disposition home or self-care (01) ==
LOC: ER 19:42 → ICU 23:43
PROVIDERS: ADMIT Internal Medicine; ATTEND Internal Medicine
DX: R41.82 Altered mental status, unspecified (principal); R41.0 Disorientation, unspecified; I10 Essential (primary) hypertension; R29.6 Repeated falls; S00.03XA Contusion of scalp, initial encounter; W19.XXXA Unspecified fall, initial encounter; Y92.9 Unspecified place or not applicable; R94.31 Abnormal electrocardiogram [ECG] [EKG]
CPT/HCPCS: 36415; 70450; 71045; 80053; 80307; 81001; 82550; 82553; 83735; 84484; 85025; 85610; 85730; 93005; 96365; 99284; A4222; G0378; G0434

== ENCOUNTER 2017-09-19 17:50 | Observation (INO) ==
[~2017-09-19 17:50] MED LIST: NS 1000 ML 1,000 ML ONE
[2017-09-19 17:59] VITALS: BMI 23.8
[2017-09-19] MEDS ORDERED: NS 1000 ML 1,000 ML IV ONE (17:59)
[2017-09-19 18:50] LABS: BASOPHILS % (AUTO) 0.3 % (0.2-1.0); EOSINOPHILS # (AUTO) 0.3 x10^3/uL (0.0-0.2); EOSINOPHILS % (AUTO) 3.2 % (0.9-2.9); HEMATOCRIT 33.9 % (36.0-47.0); HEMOGLOBIN 11.5 g/dL (12.0-16.0); LYMPHOCYTES # (AUTO) 1.9 X10^3/uL (1.3-2.9); LYMPHOCYTES % (AUTO) 24.1 % (21.0-51.0); MEAN CORPUSCULAR HEMOGLOBIN 32.1 pg (27.0-34.0); MEAN CORPUSCULAR HGB CONC 33.9 g/dL (33.0-35.0); MEAN CORPUSCULAR VOLUME 94.6 fL (80.0-100.0); MEAN PLATELET VOLUME 8.4 fL (7.4-11.0); MONOCYTES # (AUTO) 0.4 x10^3/uL (0.3-0.8); MONOCYTES % (AUTO) 5.1 % (0.0-13.0); NEUTROPHILS # (AUTO) 5.3 x10^3/uL (2.2-4.8); NEUTROPHILS % (AUTO) 67.3 % (42.0-75.0); PLATELET COUNT 176 X10^3/uL (150.0-450.0); RED BLOOD COUNT 3.59 X10^6/uL (3.5-5.4); WHITE BLOOD COUNT 7.9 X10^3/uL (3.6-10.0)
--- NOTE | 2017-09-19 19:02 | CT ---
STUDY: CT HEAD WITHOUT CONTRAST HISTORY: Altered mental status. Low blood pressure. TECHNIQUE: Multiple axial images of the head were obtained from the skull base to the vertex without administration of IV contrast. Automated exposure control (AEC) was utilized to adjust the MA and/o r kV. COMPARISON: Head CT from May 13, 2017. FINDINGS: The sulci, cisterns and ventricles are age appropriate. There is no evidence of acute terr itorial infarction, hemorrhage, mass, mass effect, or midline shift. There are no abnormal intra-axia l or extra-axial fluid collections. There is no evidence of acute osseous abnormality or significant soft tissue swelling. Visualized par anasal sinuses and mastoid air cells are predominately clear. IMPRESSION: 1. No evidence of acute intracranial abnormality. Reported By:
[2017-09-19 19:05] LABS: BLOOD UREA NITROGEN 29 mg/dL (7-18); CALCIUM 9.3 mg/dL (8.5-10.1); CARBON DIOXIDE 23.2 mmol/L (21-32); CHLORIDE 104 mmol/L (98-107); COR NA(FOR HYPERGLY) 139 mmol/L (136-145); CREATININE 2.38 mg/dL (0.55-1.02); SODIUM 138 mmol/L (136-145); TROPONIN I < 0.02 ng/mL (0-1.5); eGFR NON BLACK RACES 23 (>60)
--- NOTE | 2017-09-19 19:10 | RAD ---
HISTORY: Altered mental status Study: Chest AP portable Comparison: 05/13/2017 Findings: The heart is minimally enlarged. No congestive heart failure is noted. No acute alveolar infiltrates or pleural effusions are identified. The bony thorax is unremarkable. IMPRESSION: Mild cardiomegaly without congestive heart failure Lungs clear Reported By:
[2017-09-19 19:14] LABS: LACTIC ACID 1.4 mmol/L (0.4-2.0)
[2017-09-19 19:25] LABS: ALANINE AMINOTRANSFERASE 36 Units/L (12-78); ALBUMIN 3.3 g/dL (3.4-5.0); ALKALINE PHOSPHATASE 70 Units/L (46-116); ASPARTATE AMINO TRANSFERASE 28 Units/L (15-37); COR CA(FOR HYPOALB) 9.9 mg/dL (8.5-10.1); CREATINE KINASE 378 Units/L (26-192); CREATINE KINASE MB 3.8 ng/mL (0-4.0); TOTAL PROTEIN 7.2 g/dL (6.4-8.2)
[2017-09-19] MEDS ORDERED: NS 1000 ML 1,000 ML ONE (19:34)
[2017-09-19] MEDS: NS 1000 ML 1,000 ML IV SCH (19:38)
[2017-09-19 21:16] LABS: BILIRUBIN,URINE NEGATIVE (NEGATIVE); BLOOD/HEMOGLOBIN,URINE NEGATIVE (NEGATIVE); GLUCOSE, URINE NEGATIVE (NEGATIVE); KETONES,URINE NEGATIVE (NEGATIVE); LEUKOCYTE ESTERASE ,URINE NEGATIVE (NEGATIVE); NITRITES,URINE NEGATIVE (NEGATIVE); PROTEIN,URINE 1+ (NEGATIVE); UROBILINOGEN,URINE NORMAL (NORMAL)
[2017-09-19 21:23] LABS: APPEARANCE,URINE CLEAR (CLEAR); BACTERIA,URINE NEGATIVE /HPF (NEGATIVE); COLOR,URINE YELLOW (YELLOW); RBC,URINE 0-2 /HPF (NONE SEEN); SQUAMOUS EPITHELIAL CELL,UR RARE /HPF (NEGATIVE)
[2017-09-19 21:24] LABS: HYALINE CASTS, URINE MODERATE /LPF (NEGATIVE)
[2017-09-20] MEDS: NS 1000 ML 1,000 ML IV SCH ×3 (00:49→13:00)
[2017-09-20 00:52] LABS: CKMB % 1.2 % (<4); CREATINE KINASE 283 Units/L (26-192); CREATINE KINASE MB 3.4 ng/mL (0-4.0); TROPONIN I < 0.02 ng/mL (0-1.5)
--- NOTE | 2017-09-20 05:41 | DR.AMS ---
HPI Time Seen Time seen: 17:30 PCP Primary Care Physician: Alexandro HPI Comment HPI Comment: PATIENT DENIES CHEST PAIN BUT ADMIT TO HEADACHE. NO FEVER. NO DYSURIA, SHE IS WEAK AND DRAIN OF ENERGY. Complaint Cheif Complaint Doctors Comments: PATIENT IN ED WITH AMS AND HYPOTENSIVE. FAMILY SAID PATIENT TOOK BP MED THAT DROP BP. PATIENT SLEEPY AND SLOWLY ANSWER QUESTIONS. Chief Complaint:: pts family member states that pt took 1 and 1/2 blood pressure pills. Upon assessment, pt has altered mental status. BP is 90/50 Reviewed Nurses Notes Reviewed: Yes Source History Provided: Patient and Family Member Mode of Arrival Mode of Arrival: Wheelchair Timing Onset of Chief Complaint: 09/19/17 Came On: Suddenly Symptoms: Worsening Symptom Onset: Unknown Duration Duration: Constant Quality Quality: Decreased Alertness, Change in Behavior, Confusion, Memory Loss and Not Eating Severity Severity: Moderate and Unable to care for self Context Recent: Nausea; denies Fever, Cough and Vomiting History Of: None Associated Signs and Symptoms Associated Signs and Symptoms: Generalized Weakness, Change in Behavior, Confusion, Decreased LOC and Change in Memory PMH PMH Past Medical History: Yes Past Medical History: Anemia and Hypertension Past Surgical History: Yes Surgical History: Hysterectomy Family History History of Family Medical Conditions: Yes Family Medical History: Hypertension Social History Does patient currently use any type of tobacco product: No Have you used tobacco products in the last 12 months: No Type of Tobacco Use: None Does any household member use tobacco: No Alcohol Use: None Do you use any recreational Drugs:: No Lives With: Alone Lives Where: Home infectious screening In the last 2 months have you had wt loss of >10#?: NO Have you had fever, night sweats or hemotysis?: No Have you traveled outside the country in the last 6 months?: No Isolation: Standard ROS Review of Systems Constitutional: Weakness and Fatigue; negative Chills and Fever Eyes: negative Eye Pain, Blurred Vision, Discharge and Photophobia ENTM: negative Ear Pain, Nose Discharge, Nose Congestion and Throat Pain Respiratoy: Non-Productive Cough, Short of Breath and Wheezing Cardiovascular: Other; negative Edema and Palpitations Gastrointestinal/Abdominal: negative Abdominal Pain, Diarrhea, Nausea and Vomiting Genitourinary: negative Hematuria Neurological: Headache, Tingling, Weakness and Dizziness Musculoskeletal: Back Pain and Muscle Pain Integumentary: Dryness and Lesions Hematologic/Lymphatic: No Symptoms Reported Endocrine: No Symptoms Reported Unable to Obtain Due To: Altered mental status PE Vitals Vital Signs: Temp Pulse Pulse Pulse Resp BP BP 09/20/17 04:00 97.3 F L 60 12 09/20/17 03:00 64 12 09/20/17 02:00 57 L 12 09/20/17 01:00 70 14 09/20/17 00:00 97.3 F L 73 24 09/19/17 23:30 73 22 141/97 09/19/17 23:00 40 L 11 L 133/81 09/19/17 22:30 44 L 13 130/81 09/19/17 21:31 47 L 19 143/72 09/19/17 21:00 60 29 H 110/73 09/19/17 20:45 46 L 11 L 128/71 09/19/17 20:30 48 L 17 126/82 09/19/17 20:18 45 L 14 09/19/17 18:00 63 11 L 109/63 09/19/17 17:53 97.7 F 58 L 16 90/50 05/14/17 08:30 159/89 159/89 02/13/17 02:40 BP Pulse Ox 09/20/17 04:00 135/79 100 09/20/17 03:00 115/73 100 09/20/17 02:00 123/64 100 09/20/17 01:00 112/67 100 09/20/17 00:00 119/70 100 09/19/17 23:30 09/19/17 23:00 09/19/17 22:30 100 09/19/17 21:31 100 09/19/17 21:00 98 09/19/17 20:45 99 09/19/17 20:30 98 09/19/17 20:18 115/71 93 L 09/19/17 18:00 97 09/19/17 17:53 97 05/14/17 08:30 02/13/17 02:40 131/90 General Limitations: Altered Mental Status General Appearance: Other (SLEEPY BUT AROUSABLE.) Head Head Exam: Normal Inspection, Atraumatic and Normocephalic Head Exam Physical: Other (NONE OF THE ABOVE.); negative Laceration and Abrasion Eyes Eye exam: PERRL; negative Scleral Icterus and Conjunctival Injection Pupils: Regular, Round: Bilateral and Reactive: Bilateral ENT ENT Exam: Normal Oropharynx, Normal External Ear Exam, Mucous Membranes Dry and TM's Normal Bilaterally External Ear Exam: Normal External Inspection TM/Canal Exam: Bilateral: Normal Nose Exam: negative Sinus Tenderness, Crepitus, Septal Hematoma and Abrasion Mouth Exam: Normal Inspection; negative Drooling, Lip Swelling, Tongue Elevation and Laceration Throat Exam: Normal Inspection and Muffled Voice Neck Neck Exam: Normal Inspection and Trachea Midline; negative Tenderness and Meningismus Chest Chest Inspection: Symmetric Chest Wall Rise Respiratory Respiratory Exam: Normal Lung Sounds Bilat Respiratory Exam: Bilateral: Rhonchi Cardiovascular Cardiovascular Exam: Normal Rhythm and Bradycardia Abdominal Exam Abdominal Exam: Normal Inspection, Normal Bowel Sounds and Soft; negative Distention, Tenderness and Rebound Extremities Extremities Exam: Normal Capillary Refill; negative Edema Back Back Exam: Paraspinal Tenderness Neurological Cranial Nerve Exam: Gag reflex (XI): Normal Motor Strength - LUE: 5/5 Motor Strength - RUE: 5/5 Motor Strength - LLE: 5/5 Psychological Psychiatric Exam: Other Skin Skin Exam: Dry and Erythema MDM Additional Information Obtained Additional Information Obtained From: Family Differential Diagnosis Metabolic: Dehydration, Hypercalcemia, Hypernatremia, Hypoglycemia and Hyponatremia Structural: Closed Head Injury Toxicologic: Drug Overdose and Medication Toxicity Infectious: Sepsis COURSE Treatment Treatment: SEE ORDERS. SMITH CATH INSERTED IN ED. BRIGID. Reevaluation 1st: Unchanged 2nd: Unchanged 3rd: Improved Consultation Consultation Comments: DISCUSS PATIENT WITH DR. WILSON. HE WILL ADMIT PATIENT. Education/Counseling Education/Counseling: Patient and Family Educated On: Diagnosis ROR Labs Reviewed Laboratory Results Reviewed?: Yes Result Diagrams: 09/19/17 17:50 09/19/17 17:50 Laboratory: WBC 7.9 X10^3/uL (3.6-10.0) 09/19/17 17:50 RBC 3.59 X10^6/uL (3.5-5.4) 09/19/17 17:50 Hgb 11.5 g/dL (12.0-16.0) L 09/19/17 17:50 Hct 33.9 % (36.0-47.0) L 09/19/17 17:50 MCV 94.6 fL (80.0-100.0) 09/19/17 17:50 MCH 32.1 pg (27.0-34.0) 09/19/17 17:50 MCHC 33.9 g/dL (33.0-35.0) 09/19/17 17:50 RDW 14.0 % (11.6-16.5) 09/19/17 17:50 Plt Count 176 X10^3/uL (150.0-450.0) 09/19/17 17:50 MPV 8.4 fL (7.4-11.0) 09/19/17 17:50 Neut % (Auto) 67.3 % (42.0-75.0) 09/19/17 17:50 Lymph % (Auto) 24.1 % (21.0-51.0) 09/19/17 17:50 [place] % (Auto) 5.1 % (0.0-13.0) 09/19/17 17:50 Eos % (Auto) 3.2 % (0.9-2.9) H 09/19/17 17:50 Baso % (Auto) 0.3 % (0.2-1.0) 09/19/17 17:50 Neut # (Auto) 5.3 x10^3/uL (2.2-4.8) H 09/19/17 17:50 Lymph # (Auto) 1.9 X10^3/uL (1.3-2.9) 09/19/17 17:50 [place] # (Auto) 0.4 x10^3/uL (0.3-0.8) 09/19/17 17:50 Eos # (Auto) 0.3 x10^3/uL (0.0-0.2) H 09/19/17 17:50 Baso # (Auto) 0.0 X10^3/uL (0.0-0.1) 09/19/17 17:50 Absolute Nucleated RBC 0.2 /100WBC 09/19/17 17:50 Sodium 138 mmol/L (136-145) 09/19/17 17:50 Corrected Sodium 139 mmol/L (136-145) 09/19/17 17:50 Potassium 4.3 mmol/L (3.5-5.1) 09/19/17 17:50 Chloride 104 mmol/L (98-107) 09/19/17 17:50 Carbon Dioxide 23.2 mmol/L (21-32) 09/19/17 17:50 BUN 29 mg/dL (7-18) H 09/19/17 17:50 Creatinine 2.38 mg/dL (0.55-1.02) H 09/19/17 17:50 Est GFR (MDRD) Af Amer 27 (>60) L 09/19/17 17:50 Est GFR (MDRD) Non-Af 23 (>60) L 09/19/17 17:50 Glucose 160 mg/dL (65-99) H 09/19/17 17:50 Lactic Acid 1.4 mmol/L (0.4-2.0) 09/19/17 17:50 Calcium 9.3 mg/dL (8.5-10.1) 09/19/17 17:50 Corrected Calcium 9.9 mg/dL (8.5-10.1) 09/19/17 17:50 Total Bilirubin 0.70 mg/dL (0.2-1.0) 09/19/17 17:50 AST 28 Units/L (15-37) 09/19/17 17:50 ALT 36 Units/L (12-78) 09/19/17 17:50 Alkaline Phosphatase 70 Units/L (46-116) 09/19/17 17:50 Creatine Kinase 378 Units/L (26-192) H 09/19/17 17:50 CK-MB (CK-2) 3.8 ng/mL (0-4.0) 09/19/17 17:50 CK/CKMB % Calc 1.0 % (<4) 09/19/17 17:50 Troponin I < 0.02 ng/mL (0-1.5) 09/19/17 17:50 Total Protein 7.2 g/dL (6.4-8.2) 09/19/17 17:50 Albumin 3.3 g/dL (3.4-5.0) L 09/19/17 17:50 Globulin 3.9 g/dL (2.5-4.5) 09/19/17 17:50 Albumin/Globulin Ratio 0.8 Ratio (1.1-2.1) L 09/19/17 17:50 Specimen Type Catherized urine 09/19/17 21:01 Urine Color Yellow (YELLOW) 09/19/17 21:01 Urine Appearance Clear (CLEAR) 09/19/17 21: Urine pH 6.0 (5.0 - 8.0) 09/19/17 21: Ur Specific [place] 1.015 (1.000-1.030) 09/19/17 21:01 Urine Protein 1+ (NEGATIVE) 09/19/17 21:01 Urine Glucose (UA) Negative (NEGATIVE) 09/19/17 21: Urine Ketones Negative (NEGATIVE) 09/19/17 21: Urine Occult Blood Negative (NEGATIVE) 09/19/17 21: Urine Nitrite Negative (NEGATIVE) 09/19/17 21: Urine Bilirubin Negative (NEGATIVE) 09/19/17 21: Urine Urobilinogen Normal (NORMAL) 09/19/17 21: Ur Leukocyte Esterase Negative (NEGATIVE) 09/19/17 21: Urine RBC 0-2 /HPF (NONE SEEN) 09/19/17 21:01 Urine WBC 0-2 /HPF (NONE SEEN) 09/19/17 21:01 Ur Squamous Epith Cells Rare /HPF (NEGATIVE) 09/19/17 21: Urine Bacteria Negative /HPF (NEGATIVE) 09/19/17 21: Hyaline Casts Moderate /LPF (NEGATIVE) 09/19/17 21:01 Ur Culture Indicated? No/not indicated 09/19/17 21: Urine Opiates Screen Negative (NEG=<300) 09/19/17 21: Urine Methadone Screen Negative (NEG=<300) 09/19/17 21:01 Ur Barbiturates Screen Negative (NEG=<200) 09/19/17 21:01 Ur Phencyclidine Scrn Negative (NEG=<25) 09/19/17 21:01 Ur Amphetamines Screen Positive (NEG=<1000) A 09/19/17 21:01 U Benzodiazepines Scrn Positive (NEG=<200) A 09/19/17 21:01 Urine Cocaine Screen Negative (NEG=<300) 09/19/17 21: U Marijuana (THC) Screen Negative (NEG=<50) 09/19/17 21:01 Other Results Comments: BUN/CR ELEVATED FROM BASELINE. XRAY XRAY Interpreted by: Radiologist (REPORT NOTED. HEAD SCAN NORMAL.) XRAY Findings: REPORT NOTED. EKG [place]: Normal Rhythm: SB
[2017-09-20 06:11] LABS: BASOPHILS % (AUTO) 0.9 % (0.2-1.0); EOSINOPHILS # (AUTO) 0.2 x10^3/uL (0.0-0.2); EOSINOPHILS % (AUTO) 4.6 % (0.9-2.9); HEMATOCRIT 31.6 % (36.0-47.0); HEMOGLOBIN 10.8 g/dL (12.0-16.0); LYMPHOCYTES # (AUTO) 1.5 X10^3/uL (1.3-2.9); LYMPHOCYTES % (AUTO) 29.3 % (21.0-51.0); MEAN CORPUSCULAR HEMOGLOBIN 32.2 pg (27.0-34.0); MEAN CORPUSCULAR HGB CONC 34.2 g/dL (33.0-35.0); MEAN CORPUSCULAR VOLUME 94.2 fL (80.0-100.0); MEAN PLATELET VOLUME 8.1 fL (7.4-11.0); MONOCYTES # (AUTO) 0.4 x10^3/uL (0.3-0.8); MONOCYTES % (AUTO) 6.9 % (0.0-13.0); NEUTROPHILS % (AUTO) 58.3 % (42.0-75.0); PLATELET COUNT 157 X10^3/uL (150.0-450.0); RED BLOOD COUNT 3.36 X10^6/uL (3.5-5.4); WHITE BLOOD COUNT 5.2 X10^3/uL (3.6-10.0)
[2017-09-20 06:30] LABS: ALANINE AMINOTRANSFERASE 29 Units/L (12-78); ALBUMIN 2.7 g/dL (3.4-5.0); ALKALINE PHOSPHATASE 67 Units/L (46-116); ASPARTATE AMINO TRANSFERASE 19 Units/L (15-37); BLOOD UREA NITROGEN 22 mg/dL (7-18); CALCIUM 8.9 mg/dL (8.5-10.1); CARBON DIOXIDE 25.2 mmol/L (21-32); CHLORIDE 111 mmol/L (98-107); CHOLESTEROL 151 mg/dL (0-200); COR CA(FOR HYPOALB) 9.9 mg/dL (8.5-10.1); HDL CHOLESTEROL 38 mg/dL (40-60); SODIUM 142 mmol/L (136-145); TOTAL PROTEIN 6.1 g/dL (6.4-8.2); TRIGLYCERIDES 175 mg/dL (0-150); eGFR NON BLACK RACES 45 (>60)
[2017-09-20 06:34] LABS: CKMB % 1.2 % (<4); CREATINE KINASE 197 Units/L (26-192); CREATINE KINASE MB 2.3 ng/mL (0-4.0); TROPONIN I < 0.02 ng/mL (0-1.5)
--- NOTE | 2017-09-20 08:01 | DR.H&P ---
H&P - History & Physical for Day of: H&P Date: 09/19/17 - Chief Complaint Chief Complaint: AMS, HYPOTENSION - History of Present Illness History of Present Illness: IS A 52 YEAR OLD PATIENT OF OURS WHO PRESENTED TO THE EMERGENCY ROOM WITH FAMILY REPORTING THAT PATIENT HAS BEEN CONFUSED AND HAD A LOW BLOOD PRESSURE. THEY REPORT THAT PATIENT HAS BEEN DROWSY AND SLOW TO ANSWER QUESTIONS. PATIENT ADMITS TO HEADACHE AND WEAKNESS, BUT DENIES CHEST PAIN, FEVER, OR DYSURIA. FAMILY MEMBER REPORTS THAT PATIENT TOOK ONE AND A HALF BLOOD PRESSURE PILLS EARLIER TODAY. THEY ALSO REPORT THAT PATIENT HAS A HISTORY OF SUBSTANCE ABUSE. ON ARRIVAL, VITALS WERE 97.7-58-16-97% -90/50. LABS WERE OBTAINED. ABNORMAL LAB VALUES INCLUDE THE FOLLOWING: HGB 11.5 , HCT 33.9, CREATINE KINASE 283,378, BUN 29, CREATININE 2.38, GLUCOSE 160, ALBUMIN 3.3. BLOOD CULTURE OBTAINED AND ARE PENDING. TOXICOLOGY REVEALED THAT PATIENT WAS POSITIVE FOR AMPHETAMINES AND BENZODIAZEPINES. CHEST XRAY REVEALS MILD CARDIOMEGALY WITHOUT CONGESTIVE HEART FAILURE. LUNGS CLEAR. BRAIN CT NEGATIVE FOR ACUTE INTRACRANIAL ABNORMALITY. EKG REVEALED SINUS RHYTHM WITH HEARTRATE 52. SHE WAS GIVEN A NORMAL SALINE BOLUS IN THE ER. WE ADMITTED PATIENT FOR FURTHER EVALUATION AND TREATMENT OF HYPOTENSION, AMS, DEHYDRATION, AND SUBSTANCE ABUSE. SHE WAS STARTED ON NORMAL SALINE AT 75ML/HR. WE PLAN TO FOLLOW UP WITH AM LABS AND CONTINUE TO MONITOR PATIENT. - Past Medical History Past Medical History: Hypertension, Anemia Additional Medical History: TIA, Valvular Heart Disease, Mitral Valve Prolapse, Frequent UTI's, Fibroids, Fibromyalgia, Back Pain - Past Surgical History Surgical History: Hysterectomy Additional Surgical History: Dental Surgery approximately two weeks ago - Family History Family Medical History: Hypertension - Social History Does patient currently use any type of tobacco product: No Have you used tobacco products in the last 12 months: No Type of Tobacco Use: None Does any household member use tobacco: No Alcohol Use: None - Medications Home Medications: morphine Allergy (Verified 05/13/17 19:50) - Review of Systems Constitutional: See HPI, Weakness Eyes: No Symptoms Reported ENT: No Symptoms Reported Respiratory: No Symptoms Reported Cardiovascular: No Symptoms Reported Gastrointestinal: No Symptoms Reported Genitourinary: No Symptoms Reported Musculoskeletal: No Symptoms Reported Skin: No Symptoms Reported Neurological: Weakness, Change in Speech, Confusion - Physical Exam Vital Signs: Temperature 97.3 F Pulse Rate [Apical] 71 Pulse Rate [Right Brachial] 63 Pulse Rate 58 Respiratory Rate 16 Blood Pressure [Left Arm] 141/97 Blood Pressure [Right Arm] 123/67 Blood Pressure 90/50 O2 Sat by Pulse Oximetry 99 Oriented: Person, Place Eyes: Normal Ear: Normal Nose: Normal Throat: Normal Respiratory: Clear Throughout Cardiovascular: Bradycardia. negative: S3, S4, Murmur : Normal Auscultation: Bowel Sounds: Normal Palpation: Normal Tenderness: Normal Skin: Normal Musculoskeletal: Normal Psychiatric: Normal Mood Description: Calm Affect: Normal Speech Pattern: Delayed - Assessment/Plan (1) Dehydration Status: Acute Plan: ADMIT, NORMAL SALINE AT 75ML/HR, CONTINUE TO MONITOR (2) Hypotension Qualifiers: Hypotension type: hypotension due to hypovolemia Qualified Code(s): I95.89 - Other hypotension; E86.1 - Hypovolemia Status: Acute Plan: NORMAL SALINE AT 75ML/HR, CONTINUE TO MONITOR (3) Substance abuse Status: Acute (4) Altered mental state Qualifiers: Altered mental status type: transient alteration of awareness Qualified Code(s): R40.4 - Transient alteration of awareness Status: Acute - Allergies Allergies/Adverse Reactions: Allergies Allergy/AdvReac Type Severity Reaction Status Date / Time morphine Allergy Verified 05/13/17 19:50
[2017-09-20 12:53] LABS: CKMB % 1.1 % (<4); CREATINE KINASE 166 Units/L (26-192); CREATINE KINASE MB 1.8 ng/mL (0-4.0); TROPONIN I < 0.02 ng/mL (0-1.5)
[2017-09-21] MEDS: NS 1000 ML 1,000 ML IV SCH (02:38)
[2017-09-21 05:25] LABS: BASOPHILS % (AUTO) 0.8 % (0.2-1.0); EOSINOPHILS # (AUTO) 0.2 x10^3/uL (0.0-0.2); EOSINOPHILS % (AUTO) 4.1 % (0.9-2.9); HEMATOCRIT 33.1 % (36.0-47.0); HEMOGLOBIN 11.4 g/dL (12.0-16.0); LYMPHOCYTES # (AUTO) 1.6 X10^3/uL (1.3-2.9); LYMPHOCYTES % (AUTO) 32.9 % (21.0-51.0); MEAN CORPUSCULAR HEMOGLOBIN 32.1 pg (27.0-34.0); MEAN CORPUSCULAR HGB CONC 34.5 g/dL (33.0-35.0); MEAN CORPUSCULAR VOLUME 93.2 fL (80.0-100.0); MEAN PLATELET VOLUME 7.8 fL (7.4-11.0); MONOCYTES # (AUTO) 0.3 x10^3/uL (0.3-0.8); MONOCYTES % (AUTO) 7.1 % (0.0-13.0); NEUTROPHILS # (AUTO) 2.7 x10^3/uL (2.2-4.8); NEUTROPHILS % (AUTO) 55.1 % (42.0-75.0); PLATELET COUNT 188 X10^3/uL (150.0-450.0); RED BLOOD COUNT 3.55 X10^6/uL (3.5-5.4); RED CELL DISTRIBUTION WIDTH 14.2 % (11.6-16.5); WHITE BLOOD COUNT 4.9 X10^3/uL (3.6-10.0)
[2017-09-21 05:43] LABS: ALANINE AMINOTRANSFERASE 25 Units/L (12-78); ALBUMIN 2.6 g/dL (3.4-5.0); ALKALINE PHOSPHATASE 62 Units/L (46-116); ASPARTATE AMINO TRANSFERASE 16 Units/L (15-37); BLOOD UREA NITROGEN 14 mg/dL (7-18); CALCIUM 8.5 mg/dL (8.5-10.1); CARBON DIOXIDE 24.9 mmol/L (21-32); CHLORIDE 109 mmol/L (98-107); COR CA(FOR HYPOALB) 9.6 mg/dL (8.5-10.1); COR NA(FOR HYPERGLY) 142 mmol/L (136-145); CREATININE 0.92 mg/dL (0.55-1.02); SODIUM 142 mmol/L (136-145); TOTAL PROTEIN 6.3 g/dL (6.4-8.2); eGFR NON BLACK RACES > 60 (>60)
[2017-09-21 09:20] VITALS: BP 104/64
--- NOTE | 2017-09-23 09:57 | DR.AMS ---
HPI Time Seen Time seen: 18:00 PCP Primary Care Physician: Alexandro HPI Comment HPI Comment: PATIENT IN ED SLEEPY AND CONFUSE. RELATIVE SAID SHE TOOK MORE OF HER BP MED THAN PRESCRIB. SHE IS HYPOTENSIVE IN ED. THIS WAS TO INPROVE HER BP. SHE DENIES FEVER OR CHEST PAIN. SHE IS DIZZY AND WEAK. Complaint Cheif Complaint Doctors Comments: HYPOTENSION, AMS AND GENERALIZE WEAKNESS. Chief Complaint:: pts family member states that pt took 1 and 1/2 blood pressure pills. Upon assessment, pt has altered mental status. BP is 90/50 Reviewed Nurses Notes Reviewed: Yes Source History Provided: Patient and Family Member Mode of Arrival Mode of Arrival: Wheelchair Timing Onset of Chief Complaint: 09/19/17 Came On: Suddenly Symptom Onset: Unknown Duration Duration: Constant Duration: Hours Quality Quality: Decreased Alertness and Confusion Severity Severity: Moderate Context Recent: Drug Use (DENIES DRUG USE. TOOK MORE OF HER BP MED.) History Of: None Associated Signs and Symptoms Associated Signs and Symptoms: Generalized Weakness, Confusion and Other ( SLEEPY.) PMH PMH Past Medical History: Yes Past Medical History: Anemia and Hypertension Past Surgical History: Yes Surgical History: Hysterectomy Family History History of Family Medical Conditions: Yes Family Medical History: Hypertension Social History Does patient currently use any type of tobacco product: No Have you used tobacco products in the last 12 months: No Type of Tobacco Use: None Does any household member use tobacco: No Alcohol Use: None Do you use any recreational Drugs:: No Lives With: Alone Lives Where: Home infectious screening In the last 2 months have you had wt loss of >10#?: NO Have you had fever, night sweats or hemotysis?: No Have you traveled outside the country in the last 6 months?: No Isolation: Standard ROS Review of Systems Constitutional: Weakness, Fatigue and Other (SLEEPY) Eyes: negative Eye Pain and Discharge ENTM: negative Ear Pain, Nose Pain, Nose Discharge and Throat Pain Respiratoy: Non-Productive Cough and Short of Breath; negative Wheezing Cardiovascular: Other (SLEEPY.); negative Edema Gastrointestinal/Abdominal: negative Abdominal Pain, Diarrhea, Nausea and Vomiting Genitourinary: negative Dysuria Neurological: Dizziness and Other (AMS.) Musculoskeletal: No Symptoms Reported Integumentary: Change in Color Hematologic/Lymphatic: No Symptoms Reported Endocrine: No Symptoms Reported Unable to Obtain Due To: Altered mental status PE Vitals Vital Signs: Temp Pulse Pulse Pulse Resp BP BP 09/21/17 08:00 98.7 F 79 18 09/21/17 04:00 98.4 F 60 20 09/21/17 00:00 98.7 F 66 20 09/20/17 20:00 98.3 F 76 20 09/20/17 16:00 98.0 F 78 20 09/20/17 12:00 98.2 F 80 18 09/20/17 10:00 98.1 F 79 16 09/20/17 09:00 78 27 H 09/20/17 08:00 98.9 F 87 23 09/20/17 07:00 71 16 09/20/17 06:00 71 23 09/20/17 05:00 70 12 09/20/17 04:00 97.3 F L 60 12 09/20/17 03:00 64 12 09/20/17 02:00 57 L 12 09/20/17 01:00 70 14 09/20/17 00:00 97.3 F L 73 24 09/19/17 23:30 73 22 141/97 09/19/17 23:00 40 L 11 L 133/81 09/19/17 22:30 44 L 13 130/81 09/19/17 21:31 47 L 19 143/72 09/19/17 21:00 60 29 H 110/73 09/19/17 20:45 46 L 11 L 128/71 09/19/17 20:30 48 L 17 126/82 09/19/17 20:18 45 L 14 09/19/17 18:00 63 11 L 109/63 09/19/17 17:53 97.7 F 58 L 16 90/50 05/14/17 08:30 159/89 159/89 02/13/17 02:40 BP Pulse Ox 09/21/17 08:00 104/64 97 09/21/17 04:00 139/85 96 09/21/17 00:00 126/73 96 09/20/17 20:00 90/60 97 09/20/17 16:00 81/51 95 09/20/17 12:00 129/80 98 09/20/17 10:00 148/91 97 09/20/17 09:00 105/57 100 09/20/17 08:00 118/58 100 09/20/17 07:00 123/67 99 09/20/17 06:00 125/76 100 09/20/17 05:00 116/77 100 09/20/17 04:00 135/79 100 09/20/17 03:00 115/73 100 09/20/17 02:00 123/64 100 09/20/17 01:00 112/67 100 09/20/17 00:00 119/70 100 09/19/17 23:30 09/19/17 23:00 09/19/17 22:30 100 09/19/17 21:31 100 09/19/17 21:00 98 09/19/17 20:45 99 09/19/17 20:30 98 09/19/17 20:18 115/71 93 L 09/19/17 18:00 97 09/19/17 17:53 97 05/14/17 08:30 02/13/17 02:40 131/90 General Limitations: Altered Mental Status General Appearance: Other (AMS, SLEEPY.) Head Head Exam: Normal Inspection, Atraumatic and Normocephalic Head Exam Physical: Other (NONE PRESENT.) Eyes Eye exam: EOMI; negative Scleral Icterus and Conjunctival Injection Pupils: Regular, Round: Bilateral and Reactive: Bilateral ENT ENT Exam: Normal External Ear Exam External Ear Exam: Normal External Inspection TM/Canal Exam: Bilateral: Normal Nose Exam: Normal Nose Exam Mouth Exam: Normal Inspection Throat Exam: Normal Inspection Neck Neck Exam: Normal Inspection, Full ROM and Trachea Midline; negative Tenderness , Meningismus and Lymphadenopathy Chest Chest Inspection: Normal Inspection and Symmetric Chest Wall Rise Respiratory Respiratory Exam: Normal Lung Sounds Bilat; negative Chest Wall Tenderness Respiratory Exam: Bilateral: Rhonchi and Lower: Rhonchi Cardiovascular Cardiovascular Exam: Regular Rate, Normal Rhythm and Normal Heart Sounds Abdominal Exam Abdominal Exam: Normal Inspection, Normal Bowel Sounds and Soft; negative Tenderness Extremities Extremities Exam: Normal Inspection; negative Edema Back Back Exam: Normal Inspection Neurological Neurological Exam: Alert, Oriented X3 and Other (SLEEPY BUT AROUSABLE.) Patient Oriented To: Person and Place Speech: Other Cranial Nerve Exam: EOM Function (II, III, IV, ): Normal, Facial Sensation (V) : Normal, Facial Palsy (VII): Normal, Gag reflex (XI): Normal and Tongue Deviation: Normal Motor Strength - LUE: 5/5 Motor Strength - RUE: 5/5 Motor Strength - LLE: 5/5 Motor Strength - RLE: 5/5 Upper Motor Neuron Exam: Babinski Sign: Normal Psychological Psychiatric Exam: Other (SLEEPY) Expanded Psychiatric Exam: Other (SLEEPY.) Skin Skin Exam: Erythema MDM Additional Information Obtained Additional Information Obtained From: Old Records and PCP Differential Diagnosis Metabolic: Dehydration, Hypercalcemia, Hypernatremia, Hypoglycemia, Hyponatremia and Hypoxemia Structural: CVA Toxicologic: Medication Toxicity Infectious: Sepsis COURSE Treatment Treatment: SEE ORDERS. Consultation Consultation Comments: PATIENT ADMITTED IMPATIENT TO DR. VELASQUEZ SERVICE. Education/Counseling Education/Counseling: Patient and Education Educated On: Diagnosis ROR Labs Reviewed Laboratory Results Reviewed?: Yes Result Diagrams: 09/21/17 04:46 09/21/17 04:46 Laboratory: 09/19/17 18:39 Blood Blood Culture - Preliminary 09/19/17 18:34 Blood Blood Culture - Preliminary WBC 4.9 X10^3/uL (3.6-10.0) 09/21/17 04:46 RBC 3.55 X10^6/uL (3.5-5.4) 09/21/17 04:46 Hgb 11.4 g/dL (12.0-16.0) L 09/21/17 04:46 Hct 33.1 % (36.0-47.0) L 09/21/17 04:46 MCV 93.2 fL (80.0-100.0) 09/21/17 04:46 MCH 32.1 pg (27.0-34.0) 09/21/17 04:46 MCHC 34.5 g/dL (33.0-35.0) 09/21/17 04:46 RDW 14.2 % (11.6-16.5) 09/21/17 04:46 Plt Count 188 X10^3/uL (150.0-450.0) 09/21/17 04:46 MPV 7.8 fL (7.4-11.0) 09/21/17 04:46 Neut % (Auto) 55.1 % (42.0-75.0) 09/21/17 04:46 Lymph % (Auto) 32.9 % (21.0-51.0) 09/21/17 04:46 [place] % (Auto) 7.1 % (0.0-13.0) 09/21/17 04:46 Eos % (Auto) 4.1 % (0.9-2.9) H 09/21/17 04:46 Baso % (Auto) 0.8 % (0.2-1.0) 09/21/17 04:46 Neut # (Auto) 2.7 x10^3/uL (2.2-4.8) 09/21/17 04:46 Lymph # (Auto) 1.6 X10^3/uL (1.3-2.9) 09/21/17 04:46 [place] # (Auto) 0.3 x10^3/uL (0.3-0.8) 09/21/17 04:46 Eos # (Auto) 0.2 x10^3/uL (0.0-0.2) 09/21/17 04:46 Baso # (Auto) 0.0 X10^3/uL (0.0-0.1) 09/21/17 04:46 Absolute Nucleated RBC 0.0 /100WBC 09/21/17 04:46 Sodium 142 mmol/L (136-145) 09/21/17 04:46 Corrected Sodium 142 mmol/L (136-145) 09/21/17 04:46 Potassium 4.6 mmol/L (3.5-5.1) 09/21/17 04:46 Chloride 109 mmol/L (98-107) H 09/21/17 04:46 Carbon Dioxide 24.9 mmol/L (21-32) 09/21/17 04:46 BUN 14 mg/dL (7-18) 09/21/17 04:46 Creatinine 0.92 mg/dL (0.55-1.02) 09/21/17 04:46 Est GFR (MDRD) Af Amer > 60 (>60) 09/21/17 04:46 Est GFR (MDRD) Non-Af > 60 (>60) 09/21/17 04:46 Glucose 120 mg/dL (65-99) H 09/21/17 04:46 Lactic Acid 1.4 mmol/L (0.4-2.0) 09/19/17 17:50 Calcium 8.5 mg/dL (8.5-10.1) 09/21/17 04:46 Corrected Calcium 9.6 mg/dL (8.5-10.1) 09/21/17 04:46 Total Bilirubin 0.40 mg/dL (0.2-1.0) 09/21/17 04:46 AST 16 Units/L (15-37) 09/21/17 04:46 ALT 25 Units/L (12-78) 09/21/17 04:46 Alkaline Phosphatase 62 Units/L (46-116) 09/21/17 04:46 Creatine Kinase 166 Units/L (26-192) 09/20/17 12:16 CK-MB (CK-2) 1.8 ng/mL (0-4.0) 09/20/17 12:16 CK/CKMB % Calc 1.1 % (<4) 09/20/17 12:16 Troponin I < 0.02 ng/mL (0-1.5) 09/20/17 12:16 Total Protein 6.3 g/dL (6.4-8.2) L 09/21/17 04:46 Albumin 2.6 g/dL (3.4-5.0) L 09/21/17 04:46 Globulin 3.7 g/dL (2.5-4.5) 09/21/17 04:46 Albumin/Globulin Ratio 0.7 Ratio (1.1-2.1) L 09/21/17 04:46 Triglycerides 175 mg/dL (0-150) H 09/20/17 05:37 Cholesterol 151 mg/dL (0-200) 09/20/17 05:37 LDL Cholesterol, Calc 78 mg/dL (0-100) 09/20/17 05:37 HDL Cholesterol 38 mg/dL (40-60) L 09/20/17 05:37 Cholesterol/HDL Ratio 4.0 (0.0-5.0) 09/20/17 05:37 Specimen Type Catherized urine 09/19/17 21:01 Urine Color Yellow (YELLOW) 09/19/17 21:01 Urine Appearance Clear (CLEAR) 09/19/17 21:01 Urine pH 6.0 (5.0 - 8.0) 09/19/17 21:01 Ur Specific [place] 1.015 (1.000-1.030) 09/19/17 21:01 Urine Protein 1+ (NEGATIVE) 09/19/17 21:01 Urine Glucose (UA) Negative (NEGATIVE) 09/19/17 21:01 Urine Ketones Negative (NEGATIVE) 09/19/17 21:01 Urine Occult Blood Negative (NEGATIVE) 09/19/17 21:01 Urine Nitrite Negative (NEGATIVE) 09/19/17 21:01 Urine Bilirubin Negative (NEGATIVE) 09/19/17 21:01 Urine Urobilinogen Normal (NORMAL) 09/19/17 21:01 Ur Leukocyte Esterase Negative (NEGATIVE) 09/19/17 21:01 Urine RBC 0-2 /HPF (NONE SEEN) 09/19/17 21:01 Urine WBC 0-2 /HPF (NONE SEEN) 09/19/17 21:01 Ur Squamous Epith Cells Rare /HPF (NEGATIVE) 09/19/17 21:01 Urine Bacteria Negative /HPF (NEGATIVE) 09/19/17 21: Hyaline Casts Moderate /LPF (NEGATIVE) 09/19/17 21:01 Ur Culture Indicated? No/not indicated 09/19/17 21:01 Urine Opiates Screen Negative (NEG=<300) 09/19/17 21:01 Urine Methadone Screen Negative (NEG=<300) 09/19/17 21:01 Ur Barbiturates Screen Negative (NEG=<200) 09/19/17 21:01 Ur Phencyclidine Scrn Negative (NEG=<25) 09/19/17 21:01 Ur Amphetamines Screen Positive (NEG=<1000) A 09/19/17 21:01 U Benzodiazepines Scrn Positive (NEG=<200) A 09/19/17 21:01 Urine Cocaine Screen Negative (NEG=<300) 09/19/17 21:01 U Marijuana (THC) Screen Negative (NEG=<50) 09/19/17 21:01 Instructions Forms: Patient Portal
--- NOTE | 2017-10-03 16:30 | DR.CARTERD ---
- Discharge Summary for: Discharge Summary for Date of:: 09/21/17 - Admission Date Date of Admission: 09/19/17 - Admission Diagnoses Admission Diagnosis: (1) Altered mental state (2) Hypotension (3) Dehydration (4) Substance abuse - Discharge Date Discharge Date: 09/21/17 - Discharge Diagnoses Discharge Diagnosis: (1) Altered mental state (2) Hypotension (3) Dehydration (4) Substance abuse - Hospital Course Hospital Course: DAY ONE, MS. ORTEZ IS A 52 YEAR OLD PATIENT OF OURS WHO PRESENTED TO THE EMERGENCY ROOM WITH FAMILY REPORTING THAT PATIENT HAD BEEN CONFUSED AND HAD A LOW BLOOD PRESSURE. THEY REPORTED THAT PATIENT HAD BEEN DROWSY AND SLOW TO ANSWER QUESTIONS. PATIENT ADMITTED TO HEADACHE AND WEAKNESS, BUT DENIED CHEST PAIN, FEVER, OR DYSURIA. FAMILY MEMBER REPORTED THAT PATIENT TOOK ONE AND A HALF BLOOD PRESSURE PILLS EARLIER IN THE DAY. THEY ALSO REPORTED THAT PATIENT HAD A HISTORY OF SUBSTANCE ABUSE. ON ARRIVAL, VITALS WERE 97.7-58-16-97%-90/50. LABS WERE OBTAINED. ABNORMAL LAB VALUES INCLUDED THE FOLLOWING: HGB 11.5, HCT 33.9, CREATINE KINASE 283,378, BUN 29, CREATININE 2.38, GLUCOSE 160, ALBUMIN 3.3. BLOOD CULTURE OBTAINED. TOXICOLOGY REVEALED THAT PATIENT WAS POSITIVE FOR AMPHETAMINES AND BENZODIAZEPINES. CHEST XRAY REVEALED MILD CARDIOMEGALY WITHOUT CONGESTIVE HEART FAILURE. LUNGS CLEAR. BRAIN CT NEGATIVE FOR ACUTE INTRACRANIAL ABNORMALITY. EKG REVEALED SINUS RHYTHM WITH HEARTRATE 52. SHE WAS GIVEN A NORMAL SALINE BOLUS IN THE ER. WE ADMITTED PATIENT FOR FURTHER EVALUATION AND TREATMENT OF HYPOTENSION, AMS, DEHYDRATION, AND SUBSTANCE ABUSE. SHE WAS STARTED ON NORMAL SALINE AT 75ML/HR AND WE CONTINUED TO MONITOR PATIENT. DAY TWO, PATIENT CONTINUED WITH CONFUSION AT TIMES. BLOOD PRESSURE 118/58. BLOOD PRESSURE MEDICATIONS WERE HELD DUE TO HYPOTENSION. LABS SHOWED THAT PATIENT WAS VERY DEHYDRATED. PATIENT ADMITTED TO DECREASED ORAL INTAKE. WE DISCUSSED, IN DETAIL, THE NEED FOR DRINKING AT LEAST TWO LITERS OF WATER PER DAY. PATIENT VOICED UNDERSTANDING. WE CONTINUED IV FLUIDS AND CONTINUED TO MONITOR. DAY THREE, PATIENT WAS DOING BETTER UPON ROUNDS. SHE WAS ALERT AND ORIENTED. WE AGAIN, DISCUSSED WATER INTAKE AND SHE VOICED UNDERSTANDING. RENAL FUNCTION RETURNED TO NORMAL WITH IV HYDRATION. VITALS STABLE. BLOOD PRESSURE STABLE. WE PLANNED FOR DISCHARGE. INSTRUCTIONS FOR MEDICATIONS AND FOLLOW UP WERE DISCUSSED WITH PATIENT AND FAMILY, BOTH VOICED UNDERSTANDING. PATIENT DISCHARGED HOME IN STABLE CONDITION WITH FAMILY. - Discharge Medications Discharge Medications: Home Medication List alprazolam 1 mg PO BID PRN 09/20/17 [History] carvedilol 25 mg PO BID 09/20/17 [History] clonazepam 2 mg PO HS 09/20/17 [History] clonidine HCl 0.2 mg PO TID 09/20/17 [History] gabapentin 300 mg PO TID 09/20/17 [History] levothyroxine 75 mcg PO DAILY 09/20/17 [History] losartan 100 mg PO HS 09/20/17 [History] oxycodone 10 mg PO QID PRN 09/20/17 [History] phentermine 37.5 mg PO DAILY 09/20/17 [History] rosuvastatin 10 mg PO HS 09/20/17 [History] tizanidine 4 mg PO TID 09/20/17 [History] zolpidem 10 mg PO HS 09/20/17 [History] Prescriptions: - Discharge Disposition Discharge Disposition: PATIENT IS TO FOLLOW UP IN OUR OFFICE IN ONE WEEK.
== END 2017-09-21 11:05 | disposition home or self-care (01) ==
LOC: ICU 17:52 → ER 17:52 → ICU 09-20 → MED/SURG 09-20 09:58
PROVIDERS: ADMIT Internal Medicine; ATTEND Internal Medicine
DX: R94.4 Abnormal results of kidney function studies; F19.188 Other psychoactive substance abuse with other psychoactive substance-induced disorder; R73.09 Other abnormal glucose; E86.0 Dehydration; I51.7 Cardiomegaly; F15.20 Other stimulant dependence, uncomplicated; R51 Headache; I95.89 Other hypotension
CPT/HCPCS: 36415; 51702; 70450; 71010; 71045; 80053; 80061; 80307; 81001; 82550; 82553; 83605; 84484; 85025; 87040; 93005; 96365; 96367; 99284; A4216; A4222; G0378; G0434; J7030

== ENCOUNTER 2017-11-04 18:36 | Observation (INO) ==
--- NOTE | 2017-11-04 19:05 | DR.GENAD ---
HPI Time Seen Time Seen by Provider: 11/04/17 18:47 PCP Primary Care Physician: contreras Complaint/Symptoms Chief Complaint:: weak/dizzy, falling Source History Provided: Patient and EMS Mode of Arrival Mode of Arrival: Stretcher Timing Onset of Chief Complaint: 10/21/17 PMH PMH Past Medical History: Yes Past Medical History: Anemia, Dyslipidemia and Hypertension Past Surgical History: Yes Surgical History: Hysterectomy Family History History of Family Medical Conditions: Yes Family Medical History: Hypertension Social History Does patient currently use any type of tobacco product: Yes Have you used tobacco products in the last 12 months: Yes Type of Tobacco Use: None Does any household member use tobacco: Yes Alcohol Use: None Do you use any recreational Drugs:: No Lives With: Family Lives Where: Home infectious screening In the last 2 months have you had wt loss of >10#?: YES Have you had fever, night sweats or hemotysis?: No Have you traveled outside the country in the last 6 months?: No Isolation: Standard PE Vital Signs Vitals: Temperature 98.3 F Pulse Rate [Right Brachial] 82 Pulse Rate 85 Respiratory Rate 18 Blood Pressure [Left Arm] 155/99 Blood Pressure [Right Arm] 117/70 Blood Pressure 109/69 O2 Sat by Pulse Oximetry 93 ROR Labs Reviewed Result Diagrams: 11/04/17 19:17 11/04/17 19:17 Laboratory: WBC 9.2 X10^3/uL (3.6-10.0) 11/04/17 19:17 RBC 3.32 X10^6/uL (3.5-5.4) L 11/04/17 19:17 Hgb 10.8 g/dL (12.0-16.0) L 11/04/17 19:17 Hct 31.4 % (36.0-47.0) L 11/04/17 19:17 MCV 94.6 fL (80.0-100.0) 11/04/17 19:17 MCH 32.6 pg (27.0-34.0) 11/04/17 19:17 MCHC 34.5 g/dL (33.0-35.0) 11/04/17 19:17 RDW 13.8 % (11.6-16.5) 11/04/17 19:17 Plt Count 223 X10^3/uL (150.0-450.0) 11/04/17 19:17 MPV 7.9 fL (7.4-11.0) 11/04/17 19:17 Neut % (Auto) 69.9 % (42.0-75.0) 11/04/17 19:17 Lymph % (Auto) 21.2 % (21.0-51.0) 11/04/17 19:17 [place] % (Auto) 6.5 % (0.0-13.0) 11/04/17 19:17 Eos % (Auto) 1.6 % (0.9-2.9) 11/04/17 19:17 Baso % (Auto) 0.8 % (0.2-1.0) 11/04/17 19:17 Neut # (Auto) 6.4 x10^3/uL (2.2-4.8) H 11/04/17 19:17 Lymph # (Auto) 1.9 X10^3/uL (1.3-2.9) 11/04/17 19:17 [place] # (Auto) 0.6 x10^3/uL (0.3-0.8) 11/04/17 19:17 Eos # (Auto) 0.1 x10^3/uL (0.0-0.2) 11/04/17 19:17 Baso # (Auto) 0.1 X10^3/uL (0.0-0.1) 11/04/17 19:17 Absolute Nucleated RBC 0.0 /100WBC 11/04/17 19:17 Sodium 141 mmol/L (136-145) 11/04/17 19:17 Corrected Sodium 141 mmol/L (136-145) 11/04/17 19:17 Potassium 3.7 mmol/L (3.5-5.1) 11/04/17 19:17 Chloride 107 mmol/L (98-107) 11/04/17 19:17 Carbon Dioxide 27.9 mmol/L (21-32) 11/04/17 19:17 BUN 11 mg/dL (7-18) 11/04/17 19:17 Creatinine 1.18 mg/dL (0.55-1.02) H 11/04/17 19:17 Est GFR (MDRD) Af Amer > 60 (>60) 11/04/17 19:17 Est GFR (MDRD) Non-Af 51 (>60) L 11/04/17 19:17 Glucose 111 mg/dL (65-99) H 11/04/17 19:17 Calcium 9.1 mg/dL (8.5-10.1) 11/04/17 19:17 Corrected Calcium 10.2 mg/dL (8.5-10.1) H 11/04/17 19:17 Total Bilirubin 0.20 mg/dL (0.2-1.0) 11/04/17 19:17 AST 15 Units/L (15-37) 11/04/17 19:17 ALT 28 Units/L (12-78) 11/04/17 19:17 Alkaline Phosphatase 92 Units/L (46-116) 11/04/17 19:17 Total Protein 6.4 g/dL (6.4-8.2) 11/04/17 19:17 Albumin 2.6 g/dL (3.4-5.0) L 11/04/17 19:17 Globulin 3.8 g/dL (2.5-4.5) 11/04/17 19:17 Albumin/Globulin Ratio 0.7 Ratio (1.1-2.1) L 11/04/17 19:17 Specimen Type Clean catch urine 11/04/17 19:45 Urine Color Yellow (YELLOW) 11/04/17 19:45 Urine Appearance Clear (CLEAR) 11/04/17 19:45 Urine pH 7.0 (5.0 - 8.0) 11/04/17 19:45 Ur Specific [place] 1.005 (1.000-1.030) 11/04/17 19:45 Urine Protein Negative (NEGATIVE) 11/04/17 19:45 Urine Glucose (UA) Negative (NEGATIVE) 11/04/17 19:45 Urine Ketones Negative (NEGATIVE) 11/04/17 19:45 Urine Occult Blood Negative (NEGATIVE) 11/04/17 19:45 Urine Nitrite Negative (NEGATIVE) 11/04/17 19:45 Urine Bilirubin Negative (NEGATIVE) 11/04/17 19:45 Urine Urobilinogen Normal (NORMAL) 11/04/17 19:45 Ur Leukocyte Esterase 1+ (NEGATIVE) 11/04/17 19:45 Urine RBC None seen /HPF (NONE SEEN) 11/04/17 19:45 Urine WBC None seen /HPF (NONE SEEN) 11/04/17 19:45 Ur Squamous Epith Cells Few /HPF (NEGATIVE) 11/04/17 19:45 Amorphous Sediment Trace /HPF (NEGATIVE) 11/04/17 19:45 Urine Bacteria Negative /HPF (NEGATIVE) 11/04/17 19:45 Ur Culture Indicated? No/not indicated 11/04/17 19:45 Instructions Instructions: Steps to Quit Smoking, Wecy-md-[id number] Pyelonephritis, Adult, Abje-lr-Yvbh Dehydration, Adult, Tles-kl-Efih Potassium Content of Foods Forms: Patient Portal
[2017-11-04 19:26] LABS: BASOPHILS # (AUTO) 0.1 X10^3/uL (0.0-0.1); BASOPHILS % (AUTO) 0.8 % (0.2-1.0); EOSINOPHILS # (AUTO) 0.1 x10^3/uL (0.0-0.2); EOSINOPHILS % (AUTO) 1.6 % (0.9-2.9); HEMATOCRIT 31.4 % (36.0-47.0); HEMOGLOBIN 10.8 g/dL (12.0-16.0); LYMPHOCYTES # (AUTO) 1.9 X10^3/uL (1.3-2.9); LYMPHOCYTES % (AUTO) 21.2 % (21.0-51.0); MEAN CORPUSCULAR HEMOGLOBIN 32.6 pg (27.0-34.0); MEAN CORPUSCULAR HGB CONC 34.5 g/dL (33.0-35.0); MEAN CORPUSCULAR VOLUME 94.6 fL (80.0-100.0); MEAN PLATELET VOLUME 7.9 fL (7.4-11.0); MONOCYTES # (AUTO) 0.6 x10^3/uL (0.3-0.8); MONOCYTES % (AUTO) 6.5 % (0.0-13.0); NEUTROPHILS # (AUTO) 6.4 x10^3/uL (2.2-4.8); NEUTROPHILS % (AUTO) 69.9 % (42.0-75.0); PLATELET COUNT 223 X10^3/uL (150.0-450.0); RED BLOOD COUNT 3.32 X10^6/uL (3.5-5.4); RED CELL DISTRIBUTION WIDTH 13.8 % (11.6-16.5); WHITE BLOOD COUNT 9.2 X10^3/uL (3.6-10.0)
[2017-11-04 19:41] LABS: ALANINE AMINOTRANSFERASE 28 Units/L (12-78); ALBUMIN 2.6 g/dL (3.4-5.0); ALKALINE PHOSPHATASE 92 Units/L (46-116); ASPARTATE AMINO TRANSFERASE 15 Units/L (15-37); BLOOD UREA NITROGEN 11 mg/dL (7-18); CALCIUM 9.1 mg/dL (8.5-10.1); CARBON DIOXIDE 27.9 mmol/L (21-32); CHLORIDE 107 mmol/L (98-107); COR CA(FOR HYPOALB) 10.2 mg/dL (8.5-10.1); COR NA(FOR HYPERGLY) 141 mmol/L (136-145); CREATININE 1.18 mg/dL (0.55-1.02); SODIUM 141 mmol/L (136-145); TOTAL PROTEIN 6.4 g/dL (6.4-8.2); eGFR NON BLACK RACES 51 (>60)
--- NOTE | 2017-11-04 19:51 | CT ---
HISTORY: Frequent falls Study: CT brain without contrast Comparison: October 22, 2017 Technique: Multiple axial images of the brain were obtained from the skull base to the vertex withou t administration of IV contrast. AEC was utilized. Findings: No acute intraparenchymal hemorrhage or mass can be identified. No extra-axial fluid collections are seen. No alteration in the attenuation of the brain parenchyma can be identified to suggest acute o r subacute ischemic change. The ventricular system is symmetric and nondilated. Mild chronic parana bismark sinusitis is again noted and overall improved as compared to the prior. IMPRESSION: No acute intracranial process can be identified. Persistent but improved mild chronic paranasal sinus itis. Reported By:
[2017-11-04 19:56] LABS: BILIRUBIN,URINE NEGATIVE (NEGATIVE); BLOOD/HEMOGLOBIN,URINE NEGATIVE (NEGATIVE); GLUCOSE, URINE NEGATIVE (NEGATIVE); KETONES,URINE NEGATIVE (NEGATIVE); LEUKOCYTE ESTERASE ,URINE 1+ (NEGATIVE); NITRITES,URINE NEGATIVE (NEGATIVE); PROTEIN,URINE NEGATIVE (NEGATIVE); UROBILINOGEN,URINE NORMAL (NORMAL)
[2017-11-04 19:58] LABS: APPEARANCE,URINE CLEAR (CLEAR); COLOR,URINE YELLOW (YELLOW)
--- NOTE | 2017-11-04 19:58 | CT ---
HISTORY: Status post fall with facial pain Study: CT facial bones without contrast Comparison: None Technique: Multiple axial images of the facial structures were obtained from the mandible to superior portions of the orbits. AEC was utilized. Findings: The visualized paranasal sinuses demonstrate mild mucosal thickening. The mandible as well as the barnes rrounding bony structures appear unremarkable. The visualized portions of the orbits as well as the globe within the right and left orbit are unremarkable in their CT appearance. Mild right facial soft tissue swelling is suspected. IMPRESSION: No fracture. Reported By:
[2017-11-04 20:05] LABS: AMORPHOUS SEDIMENT,UR TRACE /HPF (NEGATIVE); BACTERIA,URINE NEGATIVE /HPF (NEGATIVE); RBC,URINE NONE SEEN /HPF (NONE SEEN); SQUAMOUS EPITHELIAL CELL,UR FEW /HPF (NEGATIVE)
--- NOTE | 2017-11-04 21:46 | CT ---
CT lumbar spine without contrast Indication: Pain, multiple falls Comparison: None Technique: CT images of the lumbar spine were obtained without contrast. Automatic exposure control w as utilized. Findings: There is mild straightening of the normal lumbar lordosis, which is likely positional or re lated to muscle spasm. No acute fracture or subluxation is identified. There is mild multilevel disco genic and facet degenerative disease. No high-grade spinal canal or neural foraminal narrowing identi fied, within the limitations of a CT. The paravertebral soft tissues are unremarkable. Impression: No acute lumbar spine fracture or subluxation. Mild multilevel spondylosis. Reported By:
--- NOTE | 2017-11-04 22:19 | RAD ---
HISTORY: Status post fall with knee pain Study: Two views right knee Comparison: None Findings: No evidence for acute cortical disruption or dislocation. There is minimal DJD. There is no effusio n. No destructive osseous lesions are seen. IMPRESSION: No acute radiographic abnormality. Reported By:
[2017-11-04] MEDS ORDERED: ZOFRAN TAB 4 MG SL PRN (23:42)
[2017-11-04] MEDS ORDERED: ROBITUSSIN DM PO PRN (23:42)
[2017-11-04] MEDS ORDERED: TYLENOL 325 MG TAB PO PRN (23:42)
[2017-11-05] MEDS ORDERED: MILK OF MAGNESIA PO SCH (09:00)
[2017-11-05] MEDS ORDERED: NS 1000 ML 1,000 ML IV ONE ×2 (09:15)
--- NOTE | 2017-11-05 09:39 | DR.GENAD ---
HPI Time Seen Time Seen by Provider: 11/04/17 18:47 PCP Primary Care Physician: contreras Complaint/Symptoms Chief Complaint:: weak/dizzy, falling Source History Provided: Patient and EMS Mode of Arrival Mode of Arrival: Stretcher Timing Onset of Chief Complaint: 10/21/17 PMH PMH Past Medical History: Yes Past Medical History: Anemia, Dyslipidemia and Hypertension Past Surgical History: Yes Surgical History: Hysterectomy Family History History of Family Medical Conditions: Yes Family Medical History: Hypertension Social History Does patient currently use any type of tobacco product: Yes Have you used tobacco products in the last 12 months: Yes Type of Tobacco Use: None Does any household member use tobacco: Yes Alcohol Use: None Do you use any recreational Drugs:: No Lives With: Family Lives Where: Home infectious screening In the last 2 months have you had wt loss of >10#?: YES Have you had fever, night sweats or hemotysis?: No Have you traveled outside the country in the last 6 months?: No Isolation: Standard PE Vital Signs Vitals: Temperature 98.1 F Pulse Rate [Right Brachial] 83 Pulse Rate 85 Respiratory Rate 18 Blood Pressure [Left Arm] 155/99 Blood Pressure [Right Arm] 80/57 Blood Pressure 109/69 O2 Sat by Pulse Oximetry 97 Eyes Eye exam: Normal Appearance, PERRL and EOMI ENT ENT Exam: Normal Exam, Normal Oropharynx, Mucous Membranes Moist and TM's Normal Bilaterally TM/Canal Exam: Bilateral: Normal Mouth Exam: Normal Inspection Throat Exam: Normal Inspection; negative Tonsillomegaly Neck Neck Exam: Normal Inspection; negative Trachea Midline Respiratory Respiratory Exam: Normal Lung Sounds Bilat Respiratory Exam: Bilateral: Clear to Auscultation Cardiovascular Cardiovascular Exam: Regular Rate and Normal Rhythm Abdominal Exam Abdominal Exam: Normal Inspection and Soft Abdominal Tenderness: RUQ, RLQ and LUQ Back Back Exam: Normal Inspection and Full ROM Neurologic Neurological Exam: Alert, Oriented X3 and CN II-XII Intact Skin Skin Exam: Warm, Dry and Intact COURSE Consultation Called: 23:00 Consultation Comments: Dr. Hernandez agreed to admit for further evaluation ROR Labs Reviewed Laboratory Results Reviewed?: Yes Result Diagrams: 11/04/17 19:17 11/04/17 19:17 Laboratory: WBC 9.2 X10^3/uL (3.6-10.0) 11/04/17 19:17 RBC 3.32 X10^6/uL (3.5-5.4) L 11/04/17 19:17 Hgb 10.8 g/dL (12.0-16.0) L 11/04/17 19:17 Hct 31.4 % (36.0-47.0) L 11/04/17 19:17 MCV 94.6 fL (80.0-100.0) 11/04/17 19:17 MCH 32.6 pg (27.0-34.0) 11/04/17 19:17 MCHC 34.5 g/dL (33.0-35.0) 11/04/17 19:17 RDW 13.8 % (11.6-16.5) 11/04/17 19:17 Plt Count 223 X10^3/uL (150.0-450.0) 11/04/17 19:17 MPV 7.9 fL (7.4-11.0) 11/04/17 19:17 Neut % (Auto) 69.9 % (42.0-75.0) 11/04/17 19:17 Lymph % (Auto) 21.2 % (21.0-51.0) 11/04/17 19:17 [place] % (Auto) 6.5 % (0.0-13.0) 11/04/17 19:17 Eos % (Auto) 1.6 % (0.9-2.9) 11/04/17 19:17 Baso % (Auto) 0.8 % (0.2-1.0) 11/04/17 19:17 Neut # (Auto) 6.4 x10^3/uL (2.2-4.8) H 11/04/17 19:17 Lymph # (Auto) 1.9 X10^3/uL (1.3-2.9) 11/04/17 19:17 [place] # (Auto) 0.6 x10^3/uL (0.3-0.8) 11/04/17 19:17 Eos # (Auto) 0.1 x10^3/uL (0.0-0.2) 11/04/17 19:17 Baso # (Auto) 0.1 X10^3/uL (0.0-0.1) 11/04/17 19:17 Absolute Nucleated RBC 0.0 /100WBC 11/04/17 19:17 Sodium 141 mmol/L (136-145) 11/04/17 19:17 Corrected Sodium 141 mmol/L (136-145) 11/04/17 19:17 Potassium 3.7 mmol/L (3.5-5.1) 11/04/17 19:17 Chloride 107 mmol/L (98-107) 11/04/17 19:17 Carbon Dioxide 27.9 mmol/L (21-32) 11/04/17 19:17 BUN 11 mg/dL (7-18) 11/04/17 19:17 Creatinine 1.18 mg/dL (0.55-1.02) H 11/04/17 19:17 Est GFR (MDRD) Af Amer > 60 (>60) 11/04/17 19:17 Est GFR (MDRD) Non-Af 51 (>60) L 11/04/17 19:17 Glucose 111 mg/dL (65-99) H 11/04/17 19:17 Calcium 9.1 mg/dL (8.5-10.1) 11/04/17 19:17 Corrected Calcium 10.2 mg/dL (8.5-10.1) H 11/04/17 19:17 Total Bilirubin 0.20 mg/dL (0.2-1.0) 11/04/17 19:17 AST 15 Units/L (15-37) 11/04/17 19:17 ALT 28 Units/L (12-78) 11/04/17 19:17 Alkaline Phosphatase 92 Units/L (46-116) 11/04/17 19:17 Total Protein 6.4 g/dL (6.4-8.2) 11/04/17 19:17 Albumin 2.6 g/dL (3.4-5.0) L 11/04/17 19:17 Globulin 3.8 g/dL (2.5-4.5) 11/04/17 19:17 Albumin/Globulin Ratio 0.7 Ratio (1.1-2.1) L 11/04/17 19:17 Specimen Type Clean catch urine 11/04/17 19:45 Urine Color Yellow (YELLOW) 11/04/17 19:45 Urine Appearance Clear (CLEAR) 11/04/17 19:45 Urine pH 7.0 (5.0 - 8.0) 11/04/17 19:45 Ur Specific [place] 1.005 (1.000-1.030) 11/04/17 19:45 Urine Protein Negative (NEGATIVE) 11/04/17 19:45 Urine Glucose (UA) Negative (NEGATIVE) 11/04/17 19:45 Urine Ketones Negative (NEGATIVE) 11/04/17 19:45 Urine Occult Blood Negative (NEGATIVE) 11/04/17 19:45 Urine Nitrite Negative (NEGATIVE) 11/04/17 19:45 Urine Bilirubin Negative (NEGATIVE) 11/04/17 19:45 Urine Urobilinogen Normal (NORMAL) 11/04/17 19:45 Ur Leukocyte Esterase 1+ (NEGATIVE) 11/04/17 19:45 Urine RBC None seen /HPF (NONE SEEN) 11/04/17 19:45 Urine WBC None seen /HPF (NONE SEEN) 11/04/17 19:45 Ur Squamous Epith Cells Few /HPF (NEGATIVE) 11/04/17 19:45 Amorphous Sediment Trace /HPF (NEGATIVE) 11/04/17 19:45 Urine Bacteria Negative /HPF (NEGATIVE) 11/04/17 19:45 Ur Culture Indicated? No/not indicated 11/04/17 19:45 Other Results Comments: Improved mild chronic paranasal sinusitis. Ct Lumbar spine: There is mild straightening of the normal lumbar lordosis, which is likely positional or related to muscle spasm. No acute fracture or subluxation is identified. There is mild multilevel discogenic and facet degenerative disease. No high-grade spinal canal or neural foraminal narrowing identified, within the limitations of a CT. The paravertebral soft tissues are unremarkable. Impression: No acute lumbar spine fracture or subluxation.. Mild multilevel spondylosis. XRAY XRAY Interpreted by: Radiologist XRAY Findings: CT Facial bones: No fracture; Brain:No acute intracranial process Instructions Forms: Patient Portal
[2017-11-05] MEDS ORDERED: HEMOCYTE-PLUS PO SCH (10:00)
[2017-11-05 12:54] VITALS: BP 117/70
[2017-11-05 13:16] VITALS: BMI 20.9
--- NOTE | 2017-11-14 08:38 | DR.CARTERS ---
Short Stay Summary - Short Stay Summary for: Short Stay Summary for Date of:: 11/04/17 - Admission Date Date of Admission: 11/04/17 - Discharge Date Discharge Date: 11/05/17 - Admission Diagnoses (1) Dehydration Status: Acute (2) Hypokalemia Status: Acute - Hospital Course Hospital Course: is a 52 year old patient of ours who presented to ER via EMS with complains of multiple falls over the past few weeks, weakness, and dizziness. She reports that she hit her head when she fell today. Patient reports having a knot on her head with a headache. Pain to right side of head rated a 4 on scale of 0-10. On arrival, vitals were 98.4, 85, 21, 95% Room Air, 109/69. Labs were obtained. Abnormal Labs include the following: RBC 3.32, Hgb 10.8, Hct 31.4, Creatinine 1.18, GFR Non Af 51, Glucose 111, Corrected Calcium 10.2, Albumin 2.6. Urinalysis revealed: Clean Catch, Leukocyte Esterase 1+, Amorphous Sediment Trace. A CT of the facial bones was obtained and revealed no fracture. Brain CT revealed: No acute intracranial process can be identified. Persistent but improved mild chronic paranasal sinusitis. CT of the lumbar spine revealed: No acute lumbar spine fracture or subluxation. Mild multilevel spondylosis. Right knee xray revealed: No evidence for acute cortical disruption or dislocation. There is minimal DJD. There is no effusion. No destructive osseous lesions are seen. She was given a one liter bolus of normal saline in the ER. An increase in blood pressure to 155/99 noted. She was admitted to the hospital for further evaluation and treatment of dehydration, hypokalemia, and weakness. We planned to follow up with AM labs and continue to monitor patient. On the morning following admission, patient reported improvement in symptoms. She denied dizziness or headache upon rounds. Her vitals this morning were 98.1- 83-18-97%-80/57. She continued to receive IV fluids throughout the night. We will also bolus her with an additional two liters of normal saline this morning. We planned for discharge this morning. We discussed instructions for medications and follow up. Patient and family verbalized understanding of all orders. She was given a new prescription for hemocyte plus daily and instructed to follow up in the office next week. She was discharged home with family in stable condition. - Discharge Medications Discharge Medications: Home Medication List iron-folic acid-mv, min cmb#15 [Hemocyte-Plus] 1 tab PO DAILY #30 cap 11/05/17 [ Rx] Prescriptions: iron-folic acid-mv, min cmb#15 [Hemocyte-Plus] Mark Mc - Discharge Plan Disposition: HOME, SELF-CARE Condition: Stable Prescriptions: iron-folic acid-mv, min cmb#15 [Hemocyte-Plus] 1 tab PO DAILY #30 cap - Follow up/Referrals Follow up/Referrals: Mark Mc [Primary Care Provider] - 11/13/17 2:20 pm - Instructions Instructions: Steps to Quit Smoking, [id number], Pyelonephritis, Adult, Easy- to-Read, Dehydration, Adult, [id number], Potassium Content of Foods Additional Instructions: DIET TOLERATED. ACTIVITY TOLERATED. Forms: Patient Portal
== END 2017-11-05 16:10 | disposition home or self-care (01) ==
LOC: ER 18:37 → MED/SURG 18:37
PROVIDERS: ADMIT Obstetrics & Gynecology Obstetrics; ATTEND Internal Medicine
DX: E86.0 Dehydration; J32.8 Other chronic sinusitis; E87.6 Hypokalemia; R42 Dizziness and giddiness; Z79.899 Other long term (current) drug therapy; R29.6 Repeated falls; I10 Essential (primary) hypertension; R94.4 Abnormal results of kidney function studies; E78.2 Mixed hyperlipidemia; R51 Headache; R53.1 Weakness; R94.31 Abnormal electrocardiogram [ECG] [EKG]; M47.896 Other spondylosis, lumbar region; W18.39XA Other fall on same level, initial encounter
CPT/HCPCS: 36415; 70450; 70486; 72131; 73560; 80053; 81001; 85025; 93005; 96365; 99284; G0378; J7030

== ENCOUNTER 2020-07-06 16:19 | Inpatient (IN) ==
[2020-07-06 16:25] VITALS: BMI 24.2
--- NOTE | 2020-07-06 16:36 | DR.GENAD ---
HPI Time Seen Time Seen by Provider: 07/06/20 16:23 PCP Primary Care Physician: Nany Delacruz HPI Comment HPI Comment: 55 yo CF w/ pmh depression, tia, fibromyalgia presents w/ worsening myalgias x 1 week. Dx'd w/ uti and CAP 2 days ago. Placed on azithromycin and macrobid. Returns for worsening malaise/ fatigue. Denies CP/ SOB, n/v/d, abd pain. Complaint/Symptoms Chief Complaint:: Pt c/o headache, fever, cough and shortness of breath. Pt seen here Sunday for same complaints. Pt has not taken bp meds today. COVID-19 Coronavirus risk:travel/contact w/high risk person: No Has patient experienced Coronavirus symptoms: Yes Coronavirus symptoms experienced: Fever, Coughing and Shortness of Breath Source History Provided: Patient Mode of Arrival Mode of Arrival: Ambulatory Timing Onset of Chief Complaint: 07/04/20 Came on: Gradually Duration How lon Duration: Weeks Severity Severity: Moderate PMH PMH Past Medical History: Yes Past Medical History: Anxiety, Depression, Hypertension and Hypothyroidism Past Surgical History: Yes Surgical History: Hysterectomy and Ortho Surgery Family History History of Family Medical Conditions: Yes Family Medical History: AR and Coronary Artery Disease Social History Does patient currently use any type of tobacco product: No Have you used tobacco products in the last 12 months: No Type of Tobacco Use: None Does any household member use tobacco: No Alcohol Use: None Do you use any recreational Drugs:: No Lives With: Family Lives Where: Home Travel Risk Coronavirus risk:travel/contact w/high risk person: No Has patient experienced Coronavirus symptoms: Yes Coronavirus symptoms experienced: Fever, Coughing and Shortness of Breath Infectious screening In the last 2 months have you had wt loss of >10#?: NO Have you had fever, night sweats or hemotysis?: No Have you traveled outside the country in the last 6 months?: No Isolation: Droplet ROS Review of Systems Constitutional: Chills, Fever, Malaise and Fatigue Eyes: No Symptoms Reported ENTM: Nose Discharge and Nose Congestion; negative Ear Pain, Throat Pain and Throat Swelling Respiratoy: Dry Cough and Wheezing; negative Short of Breath Cardiovascular: No Symptoms Reported Gastrointestinal/Abdominal: negative Abdominal Pain, Constipation, Diarrhea, Nausea and Vomiting Genitourinary: No Symptoms Reported Neurological: No Symptoms Reported Musculoskeletal: No Symptoms Reported Integumentary: No Symptoms Reported Hematologic/Lymphatic: No Symptoms Reported Endocrine: No Symptoms Reported Psychiatric: No Symptoms Reported All Other Systems: Reviewed and Negative PE Vital Signs Vitals: Temperature 37.9 C Pulse Rate 97 Respiratory Rate 20 Blood Pressure [Left Arm] 104/63 Blood Pressure 175/114 O2 Sat by Pulse Oximetry 92 General Limitations: No Limitations General Appearance: Alert and In No Apparent Distress Head Head Exam: Normal Inspection Eyes Eye exam: Normal Appearance ENT ENT Exam: Normal Exam External Ear Exam: Normal External Inspection TM/Canal Exam: Bilateral: Normal Nose Exam: Normal Nose Exam Mouth Exam: Normal Inspection Throat Exam: Normal Inspection Neck Neck Exam: Normal Inspection Chest Chest Inspection: Normal Inspection Respiratory Respiratory Exam: negative Accessory Muscle Use, Prolonged Expiratory Phase and Respiratory Distress Respiratory Exam: Right: Rhonchi Cardiovascular Cardiovascular Exam: Regular Rate and Normal Rhythm Abdominal Exam Abdominal Exam: Normal Inspection, Normal Bowel Sounds and Soft Extremities Extremities Exam: Normal Inspection Back Back Exam: Normal Inspection Neurologic Neurological Exam: Alert and Oriented X3 Psychiatric Psychiatric Exam: Normal Affect and Normal Mood Skin Skin Exam: Warm, Dry, Intact and Normal Color MDM Differential Diagnosis Differential Diagnosis: cap, uti,sepsis, bronchitis, uri COURSE Treatment Treatment: Represents at 48 hrs after recent dx of CAP/ uti. WBC climbing, currently at 23. Lactate < 2. No evidence of severe sepsis at this time. Rocephin/ azithromycin given IV. IVF bolus given. Borderline hypoxia. RA pulse ox 89- 93%. Started on supplemental o2 given. Repeat covid swab pending. D/w Dr Skelton whom agrees to admit. Education/Counseling Education/Counseling: Patient and Family Educated On: Treatment, Diagnosis, Prognosis and Needs for Follow Up ROR Labs Reviewed Laboratory Results Reviewed?: Yes Result Diagrams: 07/06/20 16:52 07/06/20 16:52 Laboratory: WBC 23.6 X10^3/uL (3.6-10.0) H D 07/06/20 16:52 RBC 4.05 X10^6/uL (3.5-5.4) 07/06/20 16:52 Hgb 12.6 g/dL (12.0-16.0) 07/06/20 16:52 Hct 37.3 % (36.0-47.0) 07/06/20 16:52 MCV 92.2 fL (80.0-100.0) 07/06/20 16:52 MCH 31.1 pg (27.0-34.0) 07/06/20 16:52 MCHC 33.8 g/dL (33.0-35.0) 07/06/20 16:52 RDW 13.7 % (11.6-16.5) 07/06/20 16:52 Plt Count 231 X10^3/uL (150.0-450.0) 07/06/20 16:52 Plt Count Comment Adequate (ADEQUATE) 07/06/20 16:52 MPV 7.9 fL (7.4-11.0) 07/06/20 16:52 Neut % (Auto) 90.4 % (42.0-75.0) H 07/06/20 16:52 Lymph % (Auto) 5.4 % (21.0-51.0) L 07/06/20 16:52 [place] % (Auto) 3.7 % (0.0-13.0) 07/06/20 16:52 Eos % (Auto) 0.1 % (0.9-2.9) L 07/06/20 16:52 Baso % (Auto) 0.4 % (0.2-1.0) 07/06/20 16:52 Neut # (Auto) 21.3 x10^3/uL (2.2-4.8) H 07/06/20 16:52 Lymph # (Auto) 1.3 X10^3/uL (1.3-2.9) 07/06/20 16:52 [place] # (Auto) 0.9 x10^3/uL (0.3-0.8) H 07/06/20 16:52 Eos # (Auto) 0.0 x10^3/uL (0.0-0.2) 07/06/20 16:52 Baso # (Auto) 0.1 X10^3/uL (0.0-0.1) 07/06/20 16:52 Absolute Nucleated RBC 0.0 /100WBC 07/06/20 16:52 Total Counted 100 07/06/20 16:52 Neutrophils % (Manual) 90 % (39-76) H 07/06/20 16:52 Lymphocytes % (Manual) 4 % (13-43) L 07/06/20 16:52 Monocytes % (Manual) 5 % (4-9) 07/06/20 16:52 Eosinophils % (Manual) 1 % (0-6) 07/06/20 16:52 Plt Morphology Comment Normal (NORMAL) 07/06/20 16:52 RBC Morphology Normal (NORMAL) 07/06/20 16:52 Sodium 139 mmol/L (136-145) 07/06/20 16:52 Corrected Sodium 140 mmol/L (136-145) 07/06/20 16:52 Potassium 3.4 mmol/L (3.5-5.1) L 07/06/20 16:52 Chloride 101 mmol/L (98-107) 07/06/20 16:52 Carbon Dioxide 27.5 mmol/L (21-32) 07/06/20 16:52 BUN 12 mg/dL (7-18) 07/06/20 16:52 Creatinine 0.91 mg/dL (0.55-1.02) 07/06/20 16:52 Est GFR (MDRD) Af Amer > 60 (>60) 07/06/20 16:52 Est GFR (MDRD) Non-Af > 60 (>60) 07/06/20 16:52 Glucose 140 mg/dL (65-99) H 07/06/20 16:52 Lactic Acid 1.5 mmol/L (0.4-2.0) 07/06/20 16:52 Calcium 8.8 mg/dL (8.5-10.1) 07/06/20 16:52 Corrected Calcium 9.7 mg/dL (8.5-10.1) 07/06/20 16:52 Total Bilirubin 1.60 mg/dL (0.2-1.0) H 07/06/20 16:52 AST 50 Units/L (15-37) H 07/06/20 16:52 ALT 93 Units/L (12-78) H 07/06/20 16:52 Alkaline Phosphatase 101 Units/L (46-116) 07/06/20 16:52 Total Protein 7.5 g/dL (6.4-8.2) 07/06/20 16:52 Albumin 2.9 g/dL (3.4-5.0) L 07/06/20 16:52 Globulin 4.6 g/dL (2.5-4.5) H 07/06/20 16:52 Albumin/Globulin Ratio 0.6 Ratio (1.1-2.1) L 07/06/20 16:52 XRAY XRAY Interpreted by: Radiologist X-ray Results: STUDY CHEST, 1 VIEW COMPARISON 07/04/2020 FINDINGS Abnormal opacity in the right lung is larger and more conspicuous than previously. This represents a progressed pneumonia. Left lung clear. Heart size magnified. Bones are unremarkable. IMPRESSION 1. Progressed right lung pneumonia Electronically signed by: Jesse Mendes (Jul 06, 2020 17:15:23) Opioid Opioid Risk Tool Age (Castro box if 16-45): No History of Preadolescent Sexual Abuse: No Total: 0 Total Score Risk Category: Low Risk Copyright: Kamaljit LEE predicting aberrant behaviors Diagnosis Discharge Problem: Community acquired bacterial pneumonia Instructions Forms: Patient Portal Social Distancing
[2020-07-06] MEDS ORDERED: NARCAN INJ IVP ONE (16:59)
[2020-07-06] MEDS ORDERED: NARCAN INJ ONE (17:01)
[2020-07-06 17:03] LABS: BASOPHILS # (AUTO) 0.1 X10^3/uL (0.0-0.1); BASOPHILS % (AUTO) 0.4 % (0.2-1.0); EOSINOPHILS % (AUTO) 0.1 % (0.9-2.9); HEMATOCRIT 37.3 % (36.0-47.0); HEMOGLOBIN 12.6 g/dL (12.0-16.0); LYMPHOCYTES # (AUTO) 1.3 X10^3/uL (1.3-2.9); LYMPHOCYTES % (AUTO) 5.4 % (21.0-51.0); MEAN CORPUSCULAR HEMOGLOBIN 31.1 pg (27.0-34.0); MEAN CORPUSCULAR HGB CONC 33.8 g/dL (33.0-35.0); MEAN CORPUSCULAR VOLUME 92.2 fL (80.0-100.0); MEAN PLATELET VOLUME 7.9 fL (7.4-11.0); MONOCYTES # (AUTO) 0.9 x10^3/uL (0.3-0.8); MONOCYTES % (AUTO) 3.7 % (0.0-13.0); NEUTROPHILS # (AUTO) 21.3 x10^3/uL (2.2-4.8); NEUTROPHILS % (AUTO) 90.4 % (42.0-75.0); PLATELET COUNT 231 X10^3/uL (150.0-450.0); RED BLOOD COUNT 4.05 X10^6/uL (3.5-5.4); RED CELL DISTRIBUTION WIDTH 13.7 % (11.6-16.5)
[2020-07-06 17:09] LABS: WHITE BLOOD COUNT 23.6 X10^3/uL (3.6-10.0)
[2020-07-06 17:15] LABS: ALANINE AMINOTRANSFERASE 93 Units/L (12-78); ALBUMIN 2.9 g/dL (3.4-5.0); ALKALINE PHOSPHATASE 101 Units/L (46-116); ASPARTATE AMINO TRANSFERASE 50 Units/L (15-37); BLOOD UREA NITROGEN 12 mg/dL (7-18); CALCIUM 8.8 mg/dL (8.5-10.1); CARBON DIOXIDE 27.5 mmol/L (21-32); CHLORIDE 101 mmol/L (98-107); COR CA(FOR HYPOALB) 9.7 mg/dL (8.5-10.1); COR NA(FOR HYPERGLY) 140 mmol/L (136-145); CREATININE 0.91 mg/dL (0.55-1.02); SODIUM 139 mmol/L (136-145); TOTAL PROTEIN 7.5 g/dL (6.4-8.2); eGFR NON BLACK RACES > 60 (>60)
--- NOTE | 2020-07-06 17:17 | RAD ---
HISTORYFEVER, COUGHSTUDYCHEST, 1 [id number] opacity in the right lung is larger and more conspicuous than previously. This represents a progressed pneumonia.Left lung clear.Heart size magnified.Bones are unremarkable.IMPRESSION1. Progressed right lung pneumoniaElectronically signed by: Jesse Mendes (Jul 06, 2020 17:15:23)
[2020-07-06 17:18] LABS: LACTIC ACID 1.5 mmol/L (0.4-2.0)
[2020-07-06] MEDS ORDERED: ZITHROMAX INJ 500 MG VIAL 500 MG in NS 250 ML IV 250 ML IV SCH (17:20)
[2020-07-06] MEDS ORDERED: ROCEPHIN 1 GRAM IV PREMIX 1 G/50 ML IV.SOLN. IV ONE ×2 (17:20→17:32)
[2020-07-06] MEDS ORDERED: NS 1000 ML 1,000 ML IV ONE (17:20)
[2020-07-06] MEDS ORDERED: ZITHROMAX INJ 500 MG VIAL IV ONE (17:31)
[2020-07-06] MEDS ORDERED: NS 1000 ML 1,000 ML ONE (17:31)
[2020-07-06] MEDS ORDERED: NS 250 ML IV 250 ML IV ONE (17:32)
[2020-07-06 17:40] LABS: PLATELET MORPHOLOGY COMMENT NORMAL (NORMAL)
[2020-07-06] MEDS: NS 1000 ML 1,000 ML IV SCH (19:44)
[2020-07-07] MEDS: NS 1000 ML 1,000 ML IV SCH ×3 (01:39→17:59)
[2020-07-07 06:21] LABS: BASOPHILS # (AUTO) 0.1 X10^3/uL (0.0-0.1); BASOPHILS % (AUTO) 0.8 % (0.2-1.0); EOSINOPHILS # (AUTO) 0.1 x10^3/uL (0.0-0.2); EOSINOPHILS % (AUTO) 0.7 % (0.9-2.9); HEMATOCRIT 31.1 % (36.0-47.0); HEMOGLOBIN 10.5 g/dL (12.0-16.0); LYMPHOCYTES # (AUTO) 1.5 X10^3/uL (1.3-2.9); LYMPHOCYTES % (AUTO) 12.5 % (21.0-51.0); MEAN CORPUSCULAR HEMOGLOBIN 31.2 pg (27.0-34.0); MEAN CORPUSCULAR HGB CONC 33.6 g/dL (33.0-35.0); MEAN CORPUSCULAR VOLUME 92.8 fL (80.0-100.0); MEAN PLATELET VOLUME 8.1 fL (7.4-11.0); MONOCYTES # (AUTO) 0.5 x10^3/uL (0.3-0.8); MONOCYTES % (AUTO) 4.1 % (0.0-13.0); NEUTROPHILS # (AUTO) 9.9 x10^3/uL (2.2-4.8); NEUTROPHILS % (AUTO) 81.9 % (42.0-75.0); PLATELET COUNT 182 X10^3/uL (150.0-450.0); RED BLOOD COUNT 3.35 X10^6/uL (3.5-5.4); RED CELL DISTRIBUTION WIDTH 13.5 % (11.6-16.5); WHITE BLOOD COUNT 12.1 X10^3/uL (3.6-10.0)
[2020-07-07 06:34] LABS: ALANINE AMINOTRANSFERASE 60 Units/L (12-78); ALBUMIN 2.3 g/dL (3.4-5.0); ALKALINE PHOSPHATASE 75 Units/L (46-116); ASPARTATE AMINO TRANSFERASE 25 Units/L (15-37); BLOOD UREA NITROGEN 13 mg/dL (7-18); CALCIUM 8.1 mg/dL (8.5-10.1); CARBON DIOXIDE 27.8 mmol/L (21-32); CHLORIDE 105 mmol/L (98-107); COR CA(FOR HYPOALB) 9.5 mg/dL (8.5-10.1); COR NA(FOR HYPERGLY) 143 mmol/L (136-145); CREATININE 0.81 mg/dL (0.55-1.02); SODIUM 142 mmol/L (136-145); TOTAL PROTEIN 6.2 g/dL (6.4-8.2); eGFR NON BLACK RACES > 60 (>60)
[2020-07-07] MEDS ORDERED: K-RIDER 10 MEQ/NS 100 ML 10 MEQ/100 ML BAG IV PRN (06:52)
[2020-07-07] MEDS ORDERED: KLOR-CON PO PRN (06:52)
[2020-07-07] MEDS ORDERED: POTASSIUM CHL 60 MEQ/NS 0.45% 500 ML IV PRN (06:52)
[2020-07-07] MEDS ORDERED: POTASSIUM CHL 40 MEQ/NS 0.45% 500 ML IV PRN (06:52)
[2020-07-07] MEDS ORDERED: MAGNESIUM SULFATE 1 GRAM/100 mL PREMIX 1 GM/100 ML BAG IV PRN (06:52)
[2020-07-07] MEDS ORDERED: POTASSIUM CHLORIDE LIQ 20 MEQ UDC PO PRN (06:52)
[2020-07-07] MEDS ORDERED: MICRO K EXTEN CAP 10 MEQ PO PRN (06:52)
[2020-07-07] MEDS: K-DUR TAB 20 MEQ PO PRN ×2 (07:13→10:51)
[2020-07-07] MEDS ORDERED: AMBIEN PO PRN (07:58)
[2020-07-07] MEDS ORDERED: MAGNESIUM SULFATE 1 GRAM/100 mL PREMIX 1 GM/100 ML BAG IV ONE (08:15)
[2020-07-07] MEDS: SYNTHROID 75 mcg TAB PO SCH (08:37)
[2020-07-07] MEDS: TYLENOL 325 MG TAB PO PRN ×2 (08:51→23:20)
[2020-07-07] MEDS ORDERED: NORMODYNE TAB 200 MG PO SCH (09:00)
[2020-07-07] MEDS: DUONEB 0.5 MG/3 MG (3 mL) NEB SCH ×3 (09:00→21:14)
--- NOTE | 2020-07-07 09:48 | DR.H&P ---
H&P History & Physical for Day of: H&P Date: 07/07/20 Chief Complaint Chief Complaint: generalized weakness, SOB Allergies Allergies Allergy/AdvReac Type Severity Reaction Status Date / Time morphine Allergy Verified 05/13/17 19:50 History of Present Illness History of Present Illness: Ms Pedraza is a 55y/o female with a PMH of HTN, hypothyroidism, TIA, anxiety and insomnia presented with worsening weakness, SOB and cough. Patient came to the ER on 07/04/20 for similar Sx along with lethargy and was found to have UTI and CAP. She was sent home with oral antibiotics. She states she continued to get worse so came in to the ED yesterday. She is currently on 2L NC. She reports having cough and feels congested but not able to cough it up. She denies GI Sx. Denies sick exposure. ED work-up - COVID-19 negative both visits to the ER - CXR: worsening right sided pneumonia - Labs: WBC 12.1 (trending down from 23), Hgb 10.5 K: 2.8 M.5 Lactic acid: 1.5 - CT-chest on 07/04/20: Acute lung parenchymal infiltrates, including prominent tree-in-bud infiltrate throughout the right upper lobe, and patchy ground glass infiltrates in the lower lobes, right greater than left, in keeping with acute multi lobar bronchopneumonia. Mild consolidative atelectasis of the medial segment of the right middle lobe and lingula, with air bronchograms. Patient was started on gentle hydration and IV antibiotics. Plan: continue gentle hydration and IV Rocephin and Azithromycin. Add duonebs prn. Wean O2 as tolerated to keep O2> 92%. Resume home medications, patient reports taking both coreg and labetalol for BP and clonidine prn. Will resume labetalol and hold coreg. Follow cultures. Monitor AM labs and imaging. Past Medical History Past Medical History: Anxiety, Depression, Hypertension and Hypothyroidism Additional Medical History: TIA, Valvular Heart Disease, Mitral Valve Prolapse, Frequent UTI's, Fibroids, Fibromyalgia, Back Pain Past Surgical History Surgical History: Hysterectomy, Ortho Surgery and Other Additional Surgical History: Dental Surgery approximately two weeks ago Family History Family Medical History: CA, Coronary Artery Disease and Hypertension Social History Does patient currently use any type of tobacco product: No Have you used tobacco products in the last 12 months: No Type of Tobacco Use: None Does any household member use tobacco: No Alcohol Use: None Drug Use: Prescription Drugs Prescription drug monitoring program results: PDMP was not reviewed Medications Home Medications: morphine Allergy (Verified 05/13/17 19:50) CONTINUE taking the following medications azithromycin 250 mg PO DAILY 07/06/20 [History] carvedilol 25 mg PO BID 07/06/20 [History] Labs Result Diagrams: 07/07/20 06:02 07/07/20 10:18 Labs: Laboratory WBC 12.1 X10^3/uL (3.6-10.0) H D 07/07/20 06:02 RBC 3.35 X10^6/uL (3.5-5.4) L 07/07/20 06:02 Hgb 10.5 g/dL (12.0-16.0) L D 07/07/20 06:02 Hct 31.1 % (36.0-47.0) L 07/07/20 06:02 MCV 92.8 fL (80.0-100.0) 07/07/20 06:02 MCH 31.2 pg (27.0-34.0) 07/07/20 06:02 MCHC 33.6 g/dL (33.0-35.0) 07/07/20 06:02 RDW 13.5 % (11.6-16.5) 07/07/20 06:02 Plt Count 182 X10^3/uL (150.0-450.0) 07/07/20 06:02 Plt Count Comment Adequate (ADEQUATE) 07/06/20 16:52 MPV 8.1 fL (7.4-11.0) 07/07/20 06:02 Neut % (Auto) 81.9 % (42.0-75.0) H 07/07/20 06:02 Lymph % (Auto) 12.5 % (21.0-51.0) L 07/07/20 06:02 [place] % (Auto) 4.1 % (0.0-13.0) 07/07/20 06:02 Eos % (Auto) 0.7 % (0.9-2.9) L 07/07/20 06:02 Baso % (Auto) 0.8 % (0.2-1.0) 07/07/20 06:02 Neut # (Auto) 9.9 x10^3/uL (2.2-4.8) H 07/07/20 06:02 Lymph # (Auto) 1.5 X10^3/uL (1.3-2.9) 07/07/20 06:02 [place] # (Auto) 0.5 x10^3/uL (0.3-0.8) 07/07/20 06:02 Eos # (Auto) 0.1 x10^3/uL (0.0-0.2) 07/07/20 06:02 Baso # (Auto) 0.1 X10^3/uL (0.0-0.1) 07/07/20 06:02 Absolute Nucleated RBC 0.1 /100WBC 07/07/20 06:02 Total Counted 100 07/06/20 16:52 Neutrophils % (Manual) 90 % (39-76) H 07/06/20 16:52 Lymphocytes % (Manual) 4 % (13-43) L 07/06/20 16:52 Monocytes % (Manual) 5 % (4-9) 07/06/20 16:52 Eosinophils % (Manual) 1 % (0-6) 07/06/20 16:52 Plt Morphology Comment Normal (NORMAL) 07/06/20 16:52 RBC Morphology Normal (NORMAL) 07/06/20 16:52 Sodium 142 mmol/L (136-145) 07/07/20 06:02 Corrected Sodium 143 mmol/L (136-145) 07/07/20 06:02 Potassium 2.8 mmol/L (3.5-5.1) L* 07/07/20 06:02 Chloride 105 mmol/L (98-107) 07/07/20 06:02 Carbon Dioxide 27.8 mmol/L (21-32) 07/07/20 06:02 BUN 13 mg/dL (7-18) 07/07/20 06:02 Creatinine 0.81 mg/dL (0.55-1.02) 07/07/20 06:02 Est GFR (MDRD) Af Amer > 60 (>60) 07/07/20 06:02 Est GFR (MDRD) Non-Af > 60 (>60) 07/07/20 06:02 Glucose 122 mg/dL (65-99) H 07/07/20 06:02 Lactic Acid 1.5 mmol/L (0.4-2.0) 07/06/20 16:52 Calcium 8.1 mg/dL (8.5-10.1) L 07/07/20 06:02 Corrected Calcium 9.5 mg/dL (8.5-10.1) 07/07/20 06:02 Magnesium 1.5 mg/dL (1.7-2.9) L 07/07/20 06:02 Total Bilirubin 0.90 mg/dL (0.2-1.0) 07/07/20 06:02 AST 25 Units/L (15-37) 07/07/20 06:02 ALT 60 Units/L (12-78) 07/07/20 06:02 Alkaline Phosphatase 75 Units/L (46-116) 07/07/20 06:02 Total Protein 6.2 g/dL (6.4-8.2) L 07/07/20 06:02 Albumin 2.3 g/dL (3.4-5.0) L 07/07/20 06:02 Globulin 3.9 g/dL (2.5-4.5) 07/07/20 06:02 Albumin/Globulin Ratio 0.6 Ratio (1.1-2.1) L 07/07/20 06:02 SARS CoV-2 RNA Rapid NAHID Negative (NEGATIVE) 07/06/20 17:00 Review of Systems Constitutional: Weakness and Malaise Eyes: No Symptoms Reported ENT: No Symptoms Reported Respiratory: Cough and Shortness of Breath Cardiovascular: No Symptoms Reported Gastrointestinal: No Symptoms Reported Genitourinary: No Symptoms Reported Musculoskeletal: No Symptoms Reported Skin: No Symptoms Reported Neurological: No Symptoms Reported Physical Exam Vital Signs: Temperature 97.8 F Pulse Rate [Left Radial] 82 Pulse Rate 97 Respiratory Rate 18 Blood Pressure [Left Arm] 121/83 Blood Pressure 175/114 O2 Sat by Pulse Oximetry 97 Oriented: Normal Eyes: Normal Ear: Normal Nose: Normal Throat: Normal Respiratory: Diminished Throughout Cardiovascular: Normal Auscultation: Bowel Sounds: Normal Palpation: Normal Tenderness: Normal Skin: Normal Musculoskeletal: Normal Psychiatric: Normal Mood Description: Calm and Appropriate Affect: Normal Speech Pattern: Clear and Appropriate Assessment/Plan (1) Pneumonia: Qualifiers: Pneumonia type: due to unspecified organism Laterality: right Lung location: unspecified part of lung Qualified Code(s): J18.9 - Pneumonia, unspecified organism Status: Acute (2) Acute respiratory failure: Qualifiers: Respiratory failure complication: hypoxia Qualified Code(s): J96.01 - Acute respiratory failure with hypoxia Status: Acute (3) Hypomagnesemia: Status: Acute (4) Hypokalemia: Status: Acute (5) History of anemia: Status: Chronic (6) Hypertension: Qualifiers: Hypertension type: essential hypertension Qualified Code(s): I10 - Essential (primary) hypertension Status: Chronic (7) Hypothyroidism: Qualifiers: Hypothyroidism type: acquired Qualified Code(s): E03.9 - Hypothyroidism, unspecified Status: Chronic (8) Anxiety: Status: Chronic (9) History of TIA (transient ischemic attack): Status: Chronic Review H&P Reviewed: Yes Patient was examined?: Yes
[2020-07-07] MEDS: LOVENOX INJ 40 MG SYR SC SCH (10:33)
[2020-07-07] MEDS: NORMODYNE TAB 100 MG PO SCH ×2 (10:51→20:32)
[2020-07-07] MEDS ORDERED: CATAPRES TAB 0.2 MG PO SCH (14:00)
[2020-07-07] MEDS: NEURONTIN CAP 400 MG PO SCH ×2 (14:35→21:09)
[2020-07-07] MEDS: ROCEPHIN 1 GRAM IV PREMIX 1 G/50 ML IV.SOLN. IV SCH (17:29)
[2020-07-07] MEDS ORDERED: ZITHROMAX INJ 500 MG VIAL IV ONE (17:49)
[2020-07-07] MEDS ORDERED: ZITHROMAX INJ 500 MG VIAL 250 MG in D5W 250 ML IV 250 ML IV SCH (18:00)
[2020-07-07] MEDS ORDERED: ZITHROMAX INJ 500 MG VIAL 500 MG in D5W 250 ML IV 250 ML IV SCH (18:00)
[2020-07-08] MEDS: NS 1000 ML 1,000 ML IV SCH (02:12)
[2020-07-08 05:06] LABS: BASOPHILS # (AUTO) 0.1 X10^3/uL (0.0-0.1); BASOPHILS % (AUTO) 0.9 % (0.2-1.0); EOSINOPHILS # (AUTO) 0.2 x10^3/uL (0.0-0.2); EOSINOPHILS % (AUTO) 2.2 % (0.9-2.9); HEMATOCRIT 32.4 % (36.0-47.0); HEMOGLOBIN 10.7 g/dL (12.0-16.0); LYMPHOCYTES # (AUTO) 1.7 X10^3/uL (1.3-2.9); LYMPHOCYTES % (AUTO) 18.7 % (21.0-51.0); MEAN CORPUSCULAR HEMOGLOBIN 30.8 pg (27.0-34.0); MEAN CORPUSCULAR HGB CONC 32.9 g/dL (33.0-35.0); MEAN CORPUSCULAR VOLUME 93.6 fL (80.0-100.0); MEAN PLATELET VOLUME 8.8 fL (7.4-11.0); MONOCYTES # (AUTO) 0.5 x10^3/uL (0.3-0.8); NEUTROPHILS # (AUTO) 6.5 x10^3/uL (2.2-4.8); NEUTROPHILS % (AUTO) 72.2 % (42.0-75.0); PLATELET COUNT 183 X10^3/uL (150.0-450.0); RED BLOOD COUNT 3.46 X10^6/uL (3.5-5.4); RED CELL DISTRIBUTION WIDTH 13.9 % (11.6-16.5)
[2020-07-08 05:12] LABS: BLOOD UREA NITROGEN 8 mg/dL (7-18); CALCIUM 8.9 mg/dL (8.5-10.1); CARBON DIOXIDE 24.9 mmol/L (21-32); CHLORIDE 109 mmol/L (98-107); CREATININE 0.79 mg/dL (0.55-1.02); MAGNESIUM 1.7 mg/dL (1.7-2.9); SODIUM 144 mmol/L (136-145); eGFR NON BLACK RACES > 60 (>60)
[2020-07-08] MEDS: NEURONTIN CAP 400 MG PO SCH (05:35)
[2020-07-08] MEDS: DUONEB 0.5 MG/3 MG (3 mL) NEB SCH (06:07)
[2020-07-08] MEDS: ROCEPHIN 1 GRAM IV PREMIX 1 G/50 ML IV.SOLN. IV SCH (08:36)
[2020-07-08] MEDS: SYNTHROID 75 mcg TAB PO SCH (08:37)
[2020-07-08] MEDS: NORMODYNE TAB 100 MG PO SCH (08:38)
[2020-07-08] MEDS: LOVENOX INJ 40 MG SYR SC SCH (08:40)
[2020-07-08 08:42] VITALS: BP 183/95
--- NOTE | 2020-07-08 08:53 | W.DIS.FURT ---
Summary of Discharge Discharge Summary of Date Date of Exam: 07/08/20 Admission Date Date of Admission: 07/06/20 Admission Diagnosis Patient Problems (Updated 07/08/20 @ 14:21 by Diamante Sierra) Community acquired bacterial pneumonia (Acute) J15.9 Hospital Course: Ms Pedraza is a 55y/o female with a PMH of HTN, hypothyroidism, TIA, anxiety and insomnia presented with worsening weakness, SOB and cough. Patient came to the ER on 07/04/20 for similar Sx along with lethargy and was found to have UTI and CAP. She was sent home with oral antibiotics. She states she continued to get worse so came in to the ED yesterday. She is currently on 2L NC. She reports having cough and feels congested but not able to cough it up. She denies GI Sx. Denies sick exposure. In the ER, COVID test was negative. CXR did show worsening right sided pneumonia. She had elevated WBC count, normal lactic acid, low potassium and magnesium. She was started on gentle hydration with NS along with IV antibiotics. Blood cultures were collected. Patient remained afebrile. She was doing well and able to be weaned off oxygen. Her WBC normalized. Electrolytes were monitored and replaced as needed. Patient was stable for discharge. RT was consulted for home o2 eval and patient did not need home oxygen. Patient's BP medications were reviewed and coreg was held since patient is also on labetalol. She denies hx of CAD or CHF and has been taking it for HTN. Patient was discharged on Levaquin. She will follow up with PCP in one week and review BP medications. Advised patient to monitor BP at home. Vital Signs: Vital Signs (72 hours) 07/06/20 16:21 07/06/20 18:58 07/06/20 19:17 Temperature 100.3 F H 99.9 F H 98.3 F Pulse Rate 97 H Pulse Rate [Left Radial] 88 86 Respiratory Rate 20 20 19 Blood Pressure 175/114 Blood Pressure [Left Arm] 194/117 187/118 O2 Sat by Pulse Oximetry 92 L 92 L 95 07/06/20 20:00 07/06/20 21:12 07/06/20 23:46 Temperature 98.6 F 98.0 F Pulse Rate Pulse Rate [Left Radial] 88 78 Respiratory Rate 24 18 Blood Pressure Blood Pressure [Left Arm] 183/117 135/95 127/86 O2 Sat by Pulse Oximetry 91 L 96 92 L 07/07/20 04:00 07/07/20 08:00 07/07/20 08:51 Temperature 98.1 F 97.8 F Pulse Rate Pulse Rate [Left Radial] 79 82 Respiratory Rate 18 18 18 Blood Pressure Blood Pressure [Left Arm] 135/85 121/83 O2 Sat by Pulse Oximetry 94 L 97 07/07/20 09:00 07/07/20 09:51 07/07/20 10:38 Temperature Pulse Rate 82 Pulse Rate [Left Radial] Respiratory Rate 18 Blood Pressure Blood Pressure [Left Arm] 140/79 O2 Sat by Pulse Oximetry 97 07/07/20 12:00 07/07/20 13:40 07/07/20 16:00 Temperature 97.7 F 99.0 F Pulse Rate 75 Pulse Rate [Left Radial] 79 87 Respiratory Rate 20 18 Blood Pressure Blood Pressure [Left Arm] 154/96 139/92 O2 Sat by Pulse Oximetry 95 95 97 07/07/20 20:00 07/07/20 21:14 07/07/20 23:20 Temperature 98.0 F Pulse Rate 78 Pulse Rate [Left Radial] 88 Respiratory Rate 18 20 Blood Pressure Blood Pressure [Left Arm] 147/94 O2 Sat by Pulse Oximetry 93 L 97 07/08/20 00:00 07/08/20 00:20 07/08/20 00:48 Temperature 97.8 F Pulse Rate Pulse Rate [Left Radial] 83 Respiratory Rate 18 20 Blood Pressure Blood Pressure [Left Arm] 180/105 142/88 O2 Sat by Pulse Oximetry 97 07/08/20 04:00 07/08/20 08:00 07/08/20 08:29 Temperature 97.7 F 98.9 F 98.9 F Pulse Rate Pulse Rate [Left Radial] 92 H 94 H Respiratory Rate 18 20 20 Blood Pressure 175/114 Blood Pressure [Left Arm] 175/88 183/95 O2 Sat by Pulse Oximetry 97 96 96 Labs: Laboratory Last Values WBC 9.0 X10^3/uL (3.6-10.0) 07/08/20 04:33 RBC 3.46 X10^6/uL (3.5-5.4) L 07/08/20 04:33 Hgb 10.7 g/dL (12.0-16.0) L 07/08/20 04:33 Hct 32.4 % (36.0-47.0) L 07/08/20 04:33 MCV 93.6 fL (80.0-100.0) 07/08/20 04:33 MCH 30.8 pg (27.0-34.0) 07/08/20 04:33 MCHC 32.9 g/dL (33.0-35.0) L 07/08/20 04:33 RDW 13.9 % (11.6-16.5) 07/08/20 04:33 Plt Count 183 X10^3/uL (150.0-450.0) 07/08/20 04:33 Plt Count Comment Adequate (ADEQUATE) 07/06/20 16:52 MPV 8.8 fL (7.4-11.0) 07/08/20 04:33 Neut % (Auto) 72.2 % (42.0-75.0) 07/08/20 04:33 Lymph % (Auto) 18.7 % (21.0-51.0) L 07/08/20 04:33 Major % (Auto) 6.0 % (0.0-13.0) 07/08/20 04:33 Eos % (Auto) 2.2 % (0.9-2.9) 07/08/20 04:33 Baso % (Auto) 0.9 % (0.2-1.0) 07/08/20 04:33 Neut # (Auto) 6.5 x10^3/uL (2.2-4.8) H 07/08/20 04:33 Lymph # (Auto) 1.7 X10^3/uL (1.3-2.9) 07/08/20 04:33 Major # (Auto) 0.5 x10^3/uL (0.3-0.8) 07/08/20 04:33 Eos # (Auto) 0.2 x10^3/uL (0.0-0.2) 07/08/20 04:33 Baso # (Auto) 0.1 X10^3/uL (0.0-0.1) 07/08/20 04:33 Absolute Nucleated RBC 0.1 /100WBC 07/08/20 04:33 Total Counted 100 07/06/20 16:52 Neutrophils % (Manual) 90 % (39-76) H 07/06/20 16:52 Lymphocytes % (Manual) 4 % (13-43) L 07/06/20 16:52 Monocytes % (Manual) 5 % (4-9) 07/06/20 16:52 Eosinophils % (Manual) 1 % (0-6) 07/06/20 16:52 Plt Morphology Comment Normal (NORMAL) 07/06/20 16:52 RBC Morphology Normal (NORMAL) 07/06/20 16:52 Sodium 144 mmol/L (136-145) 07/08/20 04:33 Corrected Sodium TNP 07/08/20 04:33 Potassium 4.0 mmol/L (3.5-5.1) 07/08/20 04:33 Chloride 109 mmol/L (98-107) H 07/08/20 04:33 Carbon Dioxide 24.9 mmol/L (21-32) 07/08/20 04:33 BUN 8 mg/dL (7-18) 07/08/20 04:33 Creatinine 0.79 mg/dL (0.55-1.02) 07/08/20 04:33 Est GFR (MDRD) Af Amer > 60 (>60) 07/08/20 04:33 Est GFR (MDRD) Non-Af > 60 (>60) 07/08/20 04:33 Glucose 87 mg/dL (65-99) 07/08/20 04:33 Lactic Acid 1.5 mmol/L (0.4-2.0) 07/06/20 16:52 Calcium 8.9 mg/dL (8.5-10.1) 07/08/20 04:33 Corrected Calcium 9.5 mg/dL (8.5-10.1) 07/07/20 06:02 Magnesium 1.7 mg/dL (1.7-2.9) 07/08/20 04:33 Total Bilirubin 0.90 mg/dL (0.2-1.0) 07/07/20 06:02 AST 25 Units/L (15-37) 07/07/20 06:02 ALT 60 Units/L (12-78) 07/07/20 06:02 Alkaline Phosphatase 75 Units/L (46-116) 07/07/20 06:02 Total Protein 6.2 g/dL (6.4-8.2) L 07/07/20 06:02 Albumin 2.3 g/dL (3.4-5.0) L 07/07/20 06:02 Globulin 3.9 g/dL (2.5-4.5) 07/07/20 06:02 Albumin/Globulin Ratio 0.6 Ratio (1.1-2.1) L 07/07/20 06:02 SARS CoV-2 RNA Rapid NAHID Negative (NEGATIVE) 07/06/20 17:00 Reason For Visit: CAP Discharge Date Discharge Date: 07/08/20 Discharge Diagnosis All Active Problems (Updated 07/08/20 @ 14:21 by Diamante Sierra) Hypomagnesemia (Acute) Pneumonia (Acute) Hypokalemia (Acute) History of anemia (Chronic) Hypertension (Chronic) Fibromyalgia (Chronic) Hypothyroidism (Chronic) Anxiety (Chronic) Depression (Chronic) History of TIA (transient ischemic attack) (Chronic) Valvular heart disease (Chronic) GERD (gastroesophageal reflux disease) (Chronic) Arthritis (Chronic) Dyslipidemia (Chronic) Constipation (Chronic) Substance abuse (Chronic) Acute respiratory failure (Acute) Hypertension, uncontrolled (Chronic) Non compliance w medication regimen (Chronic) Drug abuse, opioid type (Chronic) Community acquired bacterial pneumonia (Acute) Plan of Treatment: Continue with present treatment and follow up plan. Pt is to keep follow up appointment as instructed and take medications as ordered. Discharge Medications Discharge Medications: morphine Allergy (Verified 05/13/17 19:50) New Prescriptions ipratropium-albuterol 3 ml NEB TID 15 Days #30 vial 07/08/20 [Rx] levofloxacin 750 mg PO DAILY #7 tab 07/08/20 [Rx] Follow up and Referral Follow Up: 1 Week (PCP) Discharge Disposition Discharge Disposition: Home Discharge Condition: Stable Discharge Plan Discharge Plan Hospital Course: Ms Pedraza is a 55y/o female with a PMH of HTN, hypothyroidism, TIA, anxiety and insomnia presented with worsening weakness, SOB and cough. Patient came to the ER on 07/04/20 for similar Sx along with lethargy and was found to have UTI and CAP. She was sent home with oral antibiotics. She states she continued to get worse so came in to the ED yesterday. She is currently on 2L NC. She reports having cough and feels congested but not able to cough it up. She denies GI Sx. Denies sick exposure. In the ER, COVID test was negative. CXR did show worsening right sided pneumonia. She had elevated WBC count, normal lactic acid, low potassium and magnesium. She was started on gentle hydration with NS along with IV antibiotics. Blood cultures were collected. Patient remained afebrile. She was doing well and able to be weaned off oxygen. Her WBC normalized. Electrolytes were monitored and replaced as needed. Patient was stable for discharge. RT was consulted for home o2 eval and patient did not need home oxygen. Patient's BP medications were reviewed and coreg was held since patient is also on labetalol. She denies hx of CAD or CHF and has been taking it for HTN. Patient was discharged on Levaquin. She will follow up with PCP in one week and review BP medications. Advised patient to monitor BP at home. Patient Disposition: HOME, SELF-CARE Condition: Stable Health Concerns: Post Hospitalization: new medications and changes needed to prevent readmission or further decline. Pt educated and given instructions on all concerns. Care Plan Goals: Problem: Respiratory Complications Goal: Improved Uncomplicated Respiratory Status Instructions: Follow provided instructions. Follow up with primary physician as directed. Contact primary care physician or report to the closest Emergency Room if condition worsens. Plan of Treatment: Continue with present treatment and follow up plan. Pt is to keep follow up appointment as instructed and take medications as ordered. Prescription drug monitoring program results: PDMP was not reviewed Prescriptions: New ipratropium-albuterol 0.5 mg-3 mg(2.5 mg base)/3 mL Solution For Nebulization 3 ml NEB TID 15 Days Qty: 30 RF: 1 levofloxacin 750 mg tablet 750 mg PO DAILY Qty: 7 RF: 0 Continued levothyroxine 75 mcg Tablet 75 mcg PO DAILY RF: 0 clonidine HCl 0.2 mg Tablet 0.2 mg PO TID RF: 0 labetalol 200 mg Tablet 200 mg PO BID RF: 0 gabapentin 400 mg Capsule 400 mg PO TID RF: 0 zolpidem 10 mg Tablet 10 mg PO HS PRN (Reason: Insomnia) RF: 0 Discontinued nitrofurantoin monohyd/m-cryst [Macrobid] 100 mg capsule 100 mg PO BID 7 Days Qty: 14 RF: 0 carvedilol 25 mg Tablet 25 mg PO BID RF: 0 azithromycin 250 mg tablet 250 mg PO DAILY RF: 0 Follow ups/Referrals Follow ups/Referrals: PARDEEP JOSHUA [Primary Care Provider] - 07/14/20 9:30 am Instructions Instructions: Hypomagnesemia, Hypokalemia, Stroke Prevention, [id number], Leukocytosis, Hypertension, [id number], Community-Acquired Pneumonia, Adult, [id number] Stand Alone Forms: Precautions for COVID19, Patient Portal, Social Distancing
[2020-07-08] MEDS ORDERED: CATAPRES TAB 0.2 MG PO SCH (09:00)
== END 2020-07-08 11:55 | disposition home or self-care (01) | DRG 193 ==
LOC: ER 16:19 → MED/SURG 16:19 → OBSVTOIN 17:44 → MED/SURG 19:21
PROVIDERS: ADMIT Family Medicine; ATTEND Family Medicine
DX: E03.8 Other specified hypothyroidism; J18.8 Other pneumonia, unspecified organism; E87.6 Hypokalemia; M79.7 Fibromyalgia; E83.42 Hypomagnesemia; F41.8 Other specified anxiety disorders; Z86.73 Personal history of transient ischemic attack (TIA), and cerebral infarction without residual deficits; J96.01 Acute respiratory failure with hypoxia; E86.0 Dehydration; Z20.822 Contact with and (suspected) exposure to COVID-19; R06.02 Shortness of breath; I10 Essential (primary) hypertension; R53.1 Weakness

== ENCOUNTER 2021-01-27 12:43 | Inpatient (IN) ==
[2021-01-27 12:04] LABS: BASOPHILS % (AUTO) 0.2 % (0.2-1.0); HEMATOCRIT 31.6 % (36.0-47.0); HEMOGLOBIN 10.6 g/dL (12.0-16.0); LYMPHOCYTES # (AUTO) 1.8 X10^3/uL (1.3-2.9); LYMPHOCYTES % (AUTO) 12.2 % (21.0-51.0); MEAN CORPUSCULAR HEMOGLOBIN 32.3 pg (27.0-34.0); MEAN CORPUSCULAR HGB CONC 33.6 g/dL (33.0-35.0); MEAN CORPUSCULAR VOLUME 96.2 fL (80.0-100.0); MEAN PLATELET VOLUME 8.3 fL (7.4-11.0); MONOCYTES % (AUTO) 6.8 % (0.0-13.0); NEUTROPHILS # (AUTO) 11.8 x10^3/uL (2.2-4.8); NEUTROPHILS % (AUTO) 80.8 % (42.0-75.0); PLATELET COUNT 214 X10^3/uL (150.0-450.0); RED BLOOD COUNT 3.28 X10^6/uL (3.5-5.4); WHITE BLOOD COUNT 14.6 X10^3/uL (3.6-10.0)
[2021-01-27 12:17] LABS: ALANINE AMINOTRANSFERASE 70 Units/L (12-78); ALBUMIN 2.9 g/dL (3.4-5.0); ALKALINE PHOSPHATASE 87 Units/L (46-116); ASPARTATE AMINO TRANSFERASE 17 Units/L (15-37); BLOOD UREA NITROGEN 15 mg/dL (7-18); CALCIUM 8.9 mg/dL (8.5-10.1); CHLORIDE 104 mmol/L (98-107); COR CA(FOR HYPOALB) 9.8 mg/dL (8.5-10.1); SODIUM 138 mmol/L (136-145); TOTAL PROTEIN 6.5 g/dL (6.4-8.2); eGFR NON BLACK RACES > 60 (>60)
--- NOTE | 2021-01-27 12:43 | RAD ---
HISTORYCOVID+, PRE INFUSION SCREEN, COUGH, FEVER, SOBSTUDYCHEST x-ray, PA/LAT ADULTCOMPARISONX-ray 01/25/2021FINDINGSThere are probable mild infiltrates in the right middle lobe and left lingula, slightly greater than prior study. Findings could be due to pneumonia. Borderline cardiomegaly is seen without pulmonary venous congestion. No pleural effusion or pneumothorax is seen.IMPRESSIONPossible mild worsening of pneumonia in the bilateral mid lungs.Electronically signed by: Jarocho Bear (Jan 27, 2021 12:42:12)
[2021-01-27 13:16] VITALS: BMI 26.6
--- NOTE | 2021-01-27 13:35 | DR.SOBA ---
HPI Time Seen Time Seen by Provider: 01/27/21 13:32 Primary Care Physician Primary Care Physician: STEVE HOFFMANN HPI Comment HPI Comment: PATIENT RECENTLY DIAGNOSED WITH COVID PNEUMONIA, SCHEDULED TO RECEIVE HER 3RD DOSE OF REMDISIVIR TODAY, COMPLAINED OF WORSENING DYSPNEA, DRY COUGH. DENIES CHEST PAIN. HAS ASSOCIATED GENERALIZED WEAKNESS. Complaints Chief Complaint Doctors Comments: WORSENING DYSPNEA Chief Complaint:: PT WAS TO GET HER 3RD DOSE OF REMDISIVIR PT REPORTS TO HAVING FEELING WORSE, NURSE REPORTS TO BEING APNEA, AND C/O > SOB, 02 SATS UP STAIRS IN THE 80'S PT 02 PLACED AT 3 LPM , AND HAVING TO USE A W/C TODAY , PT C/O THAT SHE IS NOT FEELING WELL,BR COVID-19 Coronavirus risk:travel/contact w/high risk person: No Has patient experienced Coronavirus symptoms: No Coronavirus symptoms experienced: Fever, Coughing and Shortness of Breath Source History Provided: Patient Mode of Arrival Mode of Arrival: Wheelchair Timing Onset of Chief Complaint: 01/27/21 Context Onset:: At Rest Modifying Factors Worsens:: Exertion Associated Signs and Symptoms Associated Signs and Symptoms: Cough (DYSPNEA) If Cough Cough: Nonproductive PMH PMH Past Medical History: Yes Past Medical History: Anxiety, Depression, Hypertension and Hypothyroidism Past Surgical History: Yes Surgical History: Hysterectomy, Ortho Surgery and Other Family History History of Family Medical Conditions: Yes Family Medical History: MD, Coronary Artery Disease and Hypertension Social History Does patient currently use any type of tobacco product: No Have you used tobacco products in the last 12 months: No Type of Tobacco Use: None Does any household member use tobacco: No Alcohol Use: None Do you use any recreational Drugs:: No Lives With: Family Lives Where: Home Travel Risk Coronavirus risk:travel/contact w/high risk person: No Has patient experienced Coronavirus symptoms: No Coronavirus symptoms experienced: Fever, Coughing and Shortness of Breath Infectious screening In the last 2 months have you had wt loss of >10#?: NO Have you had fever, night sweats or hemotysis?: No Have you traveled outside the country in the last 6 months?: No Isolation: Standard ROS Review of Systems Constitutional: See HPI and Weakness Eyes: No Symptoms Reported ENTM: No Symptoms Reported Respiratoy: Dry Cough and Short of Breath Cardiovascular: No Symptoms Reported Gastrointestinal/Abdominal: No Symptoms Reported Genitourinary: No Symptoms Reported Neurological: No Symptoms Reported Musculoskeletal: No Symptoms Reported Integumentary: No Symptoms Reported Hematologic/Lymphatic: No Symptoms Reported Endocrine: No Symptoms Reported Psychiatric: No Symptoms Reported All Other Systems: Reviewed and Negative PE Vital Signs Vitals: Temperature 98.1 F Pulse Rate [Apical] 85 Pulse Rate 83 Respiratory Rate 22 Blood Pressure [Left Arm] 134/86 Blood Pressure 162/93 O2 Sat by Pulse Oximetry 93 General General Appearance: Alert and In No Apparent Distress Head Head Exam: Atraumatic Eyes Eye exam: Normal Appearance and PERRL ENT ENT Exam: Normal Exam Neck Neck Exam: Normal Inspection and Full ROM Chest Chest Inspection: Normal Inspection Respiratory Respiratory Exam: Normal Lung Sounds Bilat Respiratory Exam: Bilateral: Wheezing and Bilateral: Decreased Breath Sounds and Lower: Decreased Breath Sounds Cardiovascular Cardiovascular Exam: Regular Rate and Normal Rhythm Abdominal Exam Abdominal Exam: Normal Inspection and Normal Bowel Sounds Extremities Extremities Exam: Normal Inspection and Full ROM Back Back Exam: Normal Inspection and Full ROM Neurologic Neurological Exam: Alert and Oriented X3 Psychiatric Psychiatric Exam: Normal Affect and Normal Mood Skin Skin Exam: Warm and Dry MDM Differential Diagnosis Differential Diagnosis: CHF and Pneumonia Differential Diagnosis Comment:: ACUTE DYSPNEA, PULMONARY EMBOLISM COURSE Treatment Treatment: IV NORMAL SALINE 100ML/HR, AFTER 2 SETS OF BLOOD CULTURES LEVAQUIN 500MG IVPB, SOLUMEDROL 125MG IV Reevaluation 1st: Unchanged Consultation Call Returned: 16:01 Consultation Comments: DISCUSSED FINDINGS WITH DR THOMSON FOR ICU ADMIT INPATIENT ROR Labs Reviewed Laboratory Results Reviewed?: Yes Result Diagrams: 01/27/21 11:48 01/27/21 11:48 Laboratory: WBC 14.6 X10^3/uL (3.6-10.0) H 01/27/21 11:48 RBC 3.28 X10^6/uL (3.5-5.4) L 01/27/21 11:48 Hgb 10.6 g/dL (12.0-16.0) L 01/27/21 11:48 Hct 31.6 % (36.0-47.0) L 01/27/21 11:48 MCV 96.2 fL (80.0-100.0) 01/27/21 11:48 MCH 32.3 pg (27.0-34.0) 01/27/21 11:48 MCHC 33.6 g/dL (33.0-35.0) 01/27/21 11:48 RDW 14.0 % (11.6-16.5) 01/27/21 11:48 Plt Count 214 X10^3/uL (150.0-450.0) 01/27/21 11:48 MPV 8.3 fL (7.4-11.0) 01/27/21 11:48 Neut % (Auto) 80.8 % (42.0-75.0) H 01/27/21 11:48 Lymph % (Auto) 12.2 % (21.0-51.0) L 01/27/21 11:48 [place] % (Auto) 6.8 % (0.0-13.0) 01/27/21 11:48 Eos % (Auto) 0.0 % (0.9-2.9) L 01/27/21 11:48 Baso % (Auto) 0.2 % (0.2-1.0) 01/27/21 11:48 Neut # (Auto) 11.8 x10^3/uL (2.2-4.8) H 01/27/21 11:48 Lymph # (Auto) 1.8 X10^3/uL (1.3-2.9) 01/27/21 11:48 [place] # (Auto) 1.0 x10^3/uL (0.3-0.8) H 01/27/21 11:48 Eos # (Auto) 0.0 x10^3/uL (0.0-0.2) 01/27/21 11:48 Baso # (Auto) 0.0 X10^3/uL (0.0-0.1) 01/27/21 11:48 Absolute Nucleated RBC 0.1 /100WBC 01/27/21 11:48 D-Dimer 1.50 ug/ml (0.0-0.57) H* 01/27/21 11:48 Sample Site Rra 01/27/21 15:53 ABG pH 7.310 (7.35-7.45) L 01/27/21 15:53 ABG pCO2 56.0 mmHg (35.0-45.0) H* 01/27/21 15:53 ABG pO2 67.0 mmHg (80.0-100.0) L 01/27/21 15:53 ABG HCO3 28.2 mmol/L (22-26) H 01/27/21 15:53 ABG O2 Saturation 91.0 % (90-100) 01/27/21 15:53 ABG Base Excess 0.9 mmol/L (-2.0-2.0) 01/27/21 15:53 Stevie Test Pos 01/27/21 15:53 A-a Gradient 13.0 mmHg 01/27/21 15:53 FiO2 21.0 01/27/21 15:53 Blood Gas Comments Pt marion well eb 01/27/21 15:53 Sodium 138 mmol/L (136-145) 01/27/21 11:48 Corrected Sodium TNP 01/27/21 11:48 Potassium 4.1 mmol/L (3.5-5.1) 01/27/21 11:48 Chloride 104 mmol/L (98-107) 01/27/21 11:48 Carbon Dioxide 28.0 mmol/L (21-32) 01/27/21 11:48 BUN 15 mg/dL (7-18) 01/27/21 11:48 Creatinine 1.00 mg/dL (0.55-1.02) 01/27/21 11:48 Est GFR (MDRD) Af Amer > 60 (>60) 01/27/21 11:48 Est GFR (MDRD) Non-Af > 60 (>60) 01/27/21 11:48 Glucose 100 mg/dL (65-99) H 01/27/21 11:48 Calcium 8.9 mg/dL (8.5-10.1) 01/27/21 11:48 Corrected Calcium 9.8 mg/dL (8.5-10.1) 01/27/21 11:48 Ferritin 96 ng/mL (8-252) 01/27/21 11:48 Total Bilirubin 0.30 mg/dL (0.2-1.0) 01/27/21 11:48 AST 17 Units/L (15-37) 01/27/21 11:48 ALT 70 Units/L (12-78) 01/27/21 11:48 Alkaline Phosphatase 87 Units/L (46-116) 01/27/21 11:48 Troponin I < 0.02 ng/mL (0-1.5) 01/27/21 11:48 C-Reactive Protein 29.80 mg/L (0-3.0) H 01/27/21 11:48 B-Natriuretic Peptide 581 pg/mL (0-79) H* 01/27/21 11:48 Total Protein 6.5 g/dL (6.4-8.2) 01/27/21 11:48 Albumin 2.9 g/dL (3.4-5.0) L 01/27/21 11:48 Globulin 3.6 g/dL (2.5-4.5) 01/27/21 11:48 Albumin/Globulin Ratio 0.8 Ratio (1.1-2.1) L 01/27/21 11:48 XRAY XRAY Interpreted by: Radiologist (CTA CHEST IV CONTRAST- NO EVIDENCE OF PULMONARY EMBOLISM, INTERVAL DEVELOPMENT OF CONSOLIDATIVE CHANGES THROUGHOUT THE MEDIAL SEGMENT OF THE RIGHT MIDDLE LOBE AND MEDIAL ASPECT OF THE LINGULA, EXTENSIVE MILD PATCHY GROUND GLASS PARENCHYMAL INFILTRATES) X-ray Results: PORTABLE CHEST XRAY C/W MILD WORSENING OF PNEUMONIA BILAT MID LUNGS EKG Rate: 76 Pyrites: Normal Rhythm: NSR (POOR R-WAVE PROGRESSION) Opioid Opioid Risk Tool Age (Castro box if 16-45): No History of Preadolescent Sexual Abuse: No Total: 0 Total Score Risk Category: Low Risk Copyright: Kamaljit LEE predicting aberrant behaviors Diagnosis Discharge Problem: Pneumonia due to 2019 novel coronavirus, Acute dyspnea
[2021-01-27] MEDS ORDERED: NS 100 ML IV 100 ML ONE ×2 (14:12→21:26)
--- NOTE | 2021-01-27 15:23 | CT ---
EXAM: CTA CHEST WITH INTRAVENOUS CONTRASTHISTORY: Elevated D-dimer.TECHNIQUE: Spiral axial CT images are obtained through the chest with the administration of intravenous contrast. Coronal, sagittal and 3D MIP images are reformatted.DOSIMETRY: Total DLP 684.3 mGycm; CTDI 89.32 mGyCOMPARISON: Chest CT dated July 04, 2020.FINDINGS:CARDIOVASCULAR: There is no evidence for pulmonary embolic disease. There is aortic atherosclerosis, marked by calcified mural plaque in the aortic arch region. No evidence for aortic aneurysm is seen. There is mild cardiomegaly with four-chamber enlargement. No pericardial effusion is seen.MEDIASTINUM AND HUAN: No mass lesion, lymphadenopathy, emphysema, or abnormal fluid collection is seen.LUNGS: There is interval development of consolidative changes throughout the medial segment of the right middle lobe (with air bronchograms) and medial aspect of the lingula (with air bronchograms) in keeping with consolidative atelectasis and/or consolidative pneumonia in the appropriate clinical setting. There are extensive mild patchy groundglass parenchymal infiltrates scattered throughout both lungs, which may represent interstitial pneumonia (consider Covid pneumonia) in the appropriate clinical setting; nonspecific finding which may represent airspace disease (with filling of alveoli, e.g. with fluid, pus, hemorrhage, or tumor cells) and interstitial lung disease (e.g. interstitial edema, interstitial pneumonia, and interstitial fibrosis). Clinical correlation is advised. Correlation with a high resolution noncontrast chest CT may be beneficial. There is no lung mass, lung nodule, or endobronchial obstructing lesion seen. No pleural effusion or pneumothorax is evident.CHEST WALL: There are no chest wall lesions seen. The visualized bony structures are within normal limits. No axillary lymphadenopathy is noted.UPPER ABDOMEN: Limited views through the upper abdomen demonstrate no gross acute abnormality. Abundant fecal material is seen throughout the visualized upper abdominal large bowel loops; rule out constipation.IMPRESSION:1. No evidence for pulmonary embolic disease.2. Cardiomegaly with four-chamber enlargement.3. Aortic atherosclerosis; no aneurysm seen.4. Interval development of consolidative changes throughout the medial segment of the right middle lobe (with air bronchograms) and medial aspect of the lingula (with air bronchograms) in keeping with consolidative atelectasis and/or consolidative pneumonia in the appropriate clinical setting.5. Extensive mild patchy groundglass parenchymal infiltrates scattered throughout both lungs, which may represent interstitial pneumonia (consider Covid pneumonia) in the appropriate clinical setting6. No lung mass, pleural effusion, or pneumothorax seen.Electronically signed by: Miller Duran (Jan 27, 2021 15:21:20)
[2021-01-27] MEDS ORDERED: SOLU-Medrol 125 MG VIAL IVP ONE (15:48)
[2021-01-27] MEDS ORDERED: LEVAQUIN PREMIX IV 500 MG 500 MG/100 ML BAG IV ONE ×2 (15:48→16:06)
[2021-01-27 15:58] LABS: ABG BASE EXCESS 0.9 mmol/L (-2.0-2.0); ABG HCO3 28.2 mmol/L (22-26)
[2021-01-27 15:59] LABS: ABG ALLEN TEST POS
[2021-01-27] MEDS ORDERED: NS 1,000 ML IV 1,000 ML ONE (16:06)
[2021-01-27] MEDS ORDERED: SOLU-Medrol 125 MG VIAL ONE (16:06)
[2021-01-27] MEDS ORDERED: NS 1,000 ML IV 1,000 ML IV SCH (17:00)
[2021-01-27] MEDS ORDERED: ROBITUSSIN (PLAIN) PO PRN (17:31)
[2021-01-27] MEDS: NS 1,000 ML IV 1,000 ML IV SCH (19:12)
[2021-01-27] MEDS ORDERED: BROVANA ONE (20:45)
[2021-01-27] MEDS ORDERED: PULMICORT NEB TX 0.5 MG NEB ONE (20:45)
[2021-01-27] MEDS ORDERED: ZANAFLEX PO SCH (21:00)
[2021-01-27] MEDS: NEURONTIN CAP 400 MG PO SCH (21:15)
[2021-01-27] MEDS: PEPCID TAB 40 MG PO SCH (21:15)
[2021-01-27] MEDS: ASCORBIC ACID INJ MULTI-DOSE VIAL 1,500 MG in NS 100 ML IV 100 ML IV SCH (21:15)
[2021-01-27] MEDS: SOLU-Medrol 40 MG VIAL IVP SCH (21:15)
[2021-01-27] MEDS: VIBRAMYCIN PO SCH (21:15)
[2021-01-27] MEDS: ZOSYN VIAL 3.375 GRAMS 3.375 G in NS 100 ML IV + SPIKE MINIBAG* 100 ML IV SCH (21:15)
[2021-01-27] MEDS: LOVENOX INJ 30 MG SYR SC SCH (21:15)
[2021-01-27] MEDS: ZINC SULFATE PO SCH (21:15)
[2021-01-27] MEDS ORDERED: NEURONTIN CAP 400 MG ONE (21:25)
[2021-01-27] MEDS ORDERED: CATAPRES TAB 0.2 MG ONE (21:25)
[2021-01-27] MEDS ORDERED: NORMODYNE TAB 100 MG ONE (21:25)
[2021-01-27] MEDS ORDERED: ZANAFLEX ONE (21:25)
[2021-01-27] MEDS ORDERED: VIBRAMYCIN PO ONE (21:25)
[2021-01-27] MEDS ORDERED: LOVENOX INJ 30 MG SYR SC ONE (21:26)
[2021-01-27] MEDS ORDERED: ASCORBIC ACID INJ MULTI-DOSE VIAL IV ONE (21:26)
[2021-01-27] MEDS ORDERED: NS 100 ML IV + SPIKE MINIBAG* 100 ML IV ONE (21:26)
[2021-01-27] MEDS ORDERED: SOLU-Medrol 40 MG VIAL ONE (21:26)
[2021-01-27] MEDS ORDERED: ZOSYN VIAL 3.375 GRAMS IV ONE (21:26)
[2021-01-27] MEDS ORDERED: PEPCID TAB 40 MG ONE (21:26)
[2021-01-27] MEDS: BROVANA IN SCH (21:46)
[2021-01-27] MEDS: PULMICORT NEB TX 0.5 MG NEB SCH (21:46)
[2021-01-27] MEDS: CATAPRES TAB 0.2 MG PO SCH (22:43)
[2021-01-27] MEDS: NORMODYNE TAB 200 MG PO SCH (22:44)
[2021-01-28] MEDS ORDERED: NS 100 ML IV 100 ML ONE (02:43)
[2021-01-28] MEDS ORDERED: ASCORBIC ACID INJ MULTI-DOSE VIAL IV ONE (02:43)
[2021-01-28] MEDS: ASCORBIC ACID INJ MULTI-DOSE VIAL 1,500 MG in NS 100 ML IV 100 ML IV SCH ×4 (02:52→21:00)
[2021-01-28] MEDS ORDERED: CATAPRES TAB 0.2 MG ONE (05:21)
[2021-01-28] MEDS ORDERED: NORMODYNE TAB 100 MG ONE (05:21)
[2021-01-28] MEDS ORDERED: NEURONTIN CAP 400 MG ONE (05:21)
[2021-01-28] MEDS ORDERED: ZOSYN VIAL 3.375 GRAMS IV ONE (05:22)
[2021-01-28] MEDS ORDERED: NS 100 ML IV + SPIKE MINIBAG* 100 ML IV ONE (05:22)
[2021-01-28] MEDS ORDERED: SOLU-Medrol 40 MG VIAL ONE (05:22)
[2021-01-28] MEDS: ZOSYN VIAL 3.375 GRAMS 3.375 G in NS 100 ML IV + SPIKE MINIBAG* 100 ML IV SCH ×3 (06:00→21:00)
[2021-01-28] MEDS: NEURONTIN CAP 400 MG PO SCH ×3 (06:00→21:00)
[2021-01-28] MEDS: CATAPRES TAB 0.2 MG PO SCH ×2 (06:00→13:15)
[2021-01-28] MEDS: NORMODYNE TAB 200 MG PO SCH (06:00)
[2021-01-28] MEDS: SOLU-Medrol 40 MG VIAL IVP SCH ×3 (06:00→21:00)
[2021-01-28] MEDS ORDERED: ROBITUSSIN DM PO PRN (08:00)
[2021-01-28] MEDS ORDERED: APRESOLINE INJ 20 MG VIAL ONE (08:42)
[2021-01-28] MEDS: APRESOLINE INJ 20 MG VIAL IVP PRN ×2 (08:45→14:36)
[2021-01-28 08:52] LABS: BASOPHILS % (AUTO) 0.2 % (0.2-1.0); HEMATOCRIT 34.3 % (36.0-47.0); HEMOGLOBIN 11.4 g/dL (12.0-16.0); LYMPHOCYTES # (AUTO) 0.7 X10^3/uL (1.3-2.9); LYMPHOCYTES % (AUTO) 4.8 % (21.0-51.0); MEAN CORPUSCULAR HEMOGLOBIN 31.9 pg (27.0-34.0); MEAN CORPUSCULAR HGB CONC 33.2 g/dL (33.0-35.0); MEAN CORPUSCULAR VOLUME 96.3 fL (80.0-100.0); MEAN PLATELET VOLUME 8.2 fL (7.4-11.0); MONOCYTES # (AUTO) 0.4 x10^3/uL (0.3-0.8); MONOCYTES % (AUTO) 3.2 % (0.0-13.0); NEUTROPHILS # (AUTO) 12.9 x10^3/uL (2.2-4.8); NEUTROPHILS % (AUTO) 91.8 % (42.0-75.0); PLATELET COUNT 237 X10^3/uL (150.0-450.0); RED BLOOD COUNT 3.56 X10^6/uL (3.5-5.4)
[2021-01-28] MEDS ORDERED: ZANAFLEX PO PRN (08:52)
[2021-01-28] MEDS ORDERED: TRICOR TAB 160 MG PO SCH (09:00)
[2021-01-28] MEDS ORDERED: VITAMIN D (1.25MG) PO SCH (09:00)
[2021-01-28] MEDS ORDERED: VITAMIN A PO SCH (09:00)
[2021-01-28 09:05] LABS: ALANINE AMINOTRANSFERASE 56 Units/L (12-78); ALBUMIN 2.9 g/dL (3.4-5.0); ALKALINE PHOSPHATASE 88 Units/L (46-116); ASPARTATE AMINO TRANSFERASE 10 Units/L (15-37); BLOOD UREA NITROGEN 16 mg/dL (7-18); CALCIUM 8.8 mg/dL (8.5-10.1); CARBON DIOXIDE 29.5 mmol/L (21-32); CHLORIDE 102 mmol/L (98-107); COR CA(FOR HYPOALB) 9.7 mg/dL (8.5-10.1); COR NA(FOR HYPERGLY) 139 mmol/L (136-145); CREATININE 0.88 mg/dL (0.55-1.02); SODIUM 139 mmol/L (136-145); TOTAL PROTEIN 6.6 g/dL (6.4-8.2); eGFR NON BLACK RACES > 60 (>60)
[2021-01-28 09:31] LABS: PLATELET MORPHOLOGY COMMENT NORMAL (NORMAL)
[2021-01-28] MEDS: BROVANA IN SCH ×2 (09:45→21:00)
[2021-01-28] MEDS: PULMICORT NEB TX 0.5 MG NEB SCH ×2 (09:45→21:00)
[2021-01-28] MEDS: LASIX PO SCH (10:14)
[2021-01-28] MEDS: ZINC SULFATE PO SCH ×2 (10:15→21:00)
[2021-01-28] MEDS: VIBRAMYCIN PO SCH ×2 (10:15→21:00)
[2021-01-28] MEDS: LOVENOX INJ 30 MG SYR SC SCH ×2 (10:16→23:45)
[2021-01-28] MEDS: PEPCID TAB 40 MG PO SCH ×2 (10:16→21:00)
[2021-01-28] MEDS: MICRO K EXTEN CAP 10 MEQ PO SCH (10:16)
[2021-01-28] MEDS: SYNTHROID 75 mcg TAB PO SCH (10:16)
--- NOTE | 2021-01-28 13:07 | DR.H&P ---
H&P History & Physical for Day of: H&P Date: 01/28/21 Chief Complaint Chief Complaint: cough, dyspnea and lethargy Allergies Allergies Allergy/AdvReac Type Severity Reaction Status Date / Time morphine Allergy Verified 05/13/17 19:50 History of Present Illness History of Present Illness: Ms Pedraza is a 55y/o female with multiple comorbidities including uncontrolled HTN, anxiety, depression and chronic pain syndrome was diagnosed with COVID on Sunday01/24/21 and was being treated outpatient with Remdesivir infusions. She was also taking PO abx and steroids. Patient came for her infusion yesterday but prior to starting, her vitals showed POX 88% and patient was noted to be extremely lethargic with low respirations so was sent to the ER. She is awake and alert this morning. She is currently on 2L NC. Patient states she usually takes 2 zanaflex and gabapentin together as that helps her stay calm. ER work up - Labs reviewed - Imaging: CTA reviewed: no PE, ground glass opacities seen along with cardiomegaly Patient was admitted for covid-19 pneumonia with ICU COVID protocol. Plan: will repeat labs this morning. Continue ICU Covid-19 protocol. Continue IV abx, Remdesivir and Solumedrol. Continue nebs. Continue vitamin support. Wean O2 as tolerated.Will order echo to assess LV function due to elevated BNP and cardiomegaly. Resume home medications except hold opioids and benzos. Change zanaflex to 4mg daily prn. Discussed side effects associated with narcotics, muscle relaxer and benzos. Also discussed these medications can suppress respiratory drive. Add hydralazine 10 mg IV q6 prn. Monitor AM labs and imaging. Time spent for clinical assessment, reviewing labs/imaging, physical exam, decision making and documentation greater than 45 mins. Past Medical History Past Medical History: Anxiety, Depression, Hypertension and Hypothyroidism Additional Medical History: TIA, Valvular Heart Disease, Mitral Valve Prolapse, Frequent UTI's, Fibroids, Fibromyalgia, Back Pain Past Surgical History Surgical History: Hysterectomy, Ortho Surgery and Other Additional Surgical History: Dental Surgery approximately two weeks ago Family History Family Medical History: MS, Coronary Artery Disease and Hypertension Social History Does patient currently use any type of tobacco product: No Have you used tobacco products in the last 12 months: No Type of Tobacco Use: None Does any household member use tobacco: No Alcohol Use: None Drug Use: Prescription Drugs Medications Home Medications: morphine Allergy (Verified 05/13/17 19:50) CONTINUE taking the following medications azithromycin 500 mg PO DAILY 01/27/21 [History] furosemide [Lasix] 20 mg PO DAILY 01/27/21 [History] guaifenesin [Guaiatussin] 200 mg PO QID PRN 01/27/21 [History] hydrocodone-acetaminophen [[place]] 5 - 325 tab PO BID PRN 01/27/21 [History] labetalol 200 mg PO TID 01/27/21 [History] phendimetrazine tartrate 35 mg PO TID 01/27/21 [History] potassium chloride 10 meq PO DAILY 01/27/21 [History] tizanidine 4 mg PO BID 01/27/21 [History] Labs Result Diagrams: 01/28/21 08:25 01/28/21 08:25 Labs: Laboratory WBC 14.0 X10^3/uL (3.6-10.0) H 01/28/21 08:25 RBC 3.56 X10^6/uL (3.5-5.4) 01/28/21 08:25 Hgb 11.4 g/dL (12.0-16.0) L 01/28/21 08:25 Hct 34.3 % (36.0-47.0) L 01/28/21 08:25 MCV 96.3 fL (80.0-100.0) 01/28/21 08:25 MCH 31.9 pg (27.0-34.0) 01/28/21 08:25 MCHC 33.2 g/dL (33.0-35.0) 01/28/21 08:25 RDW 14.0 % (11.6-16.5) 01/28/21 08:25 Plt Count 237 X10^3/uL (150.0-450.0) 01/28/21 08:25 Plt Count Comment Adequate (ADEQUATE) 01/28/21 08:25 MPV 8.2 fL (7.4-11.0) 01/28/21 08:25 Neut % (Auto) 91.8 % (42.0-75.0) H 01/28/21 08:25 Lymph % (Auto) 4.8 % (21.0-51.0) L 01/28/21 08:25 Louisa % (Auto) 3.2 % (0.0-13.0) 01/28/21 08:25 Eos % (Auto) 0.0 % (0.9-2.9) L 01/28/21 08:25 Baso % (Auto) 0.2 % (0.2-1.0) 01/28/21 08:25 Neut # (Auto) 12.9 x10^3/uL (2.2-4.8) H 01/28/21 08:25 Lymph # (Auto) 0.7 X10^3/uL (1.3-2.9) L 01/28/21 08:25 Louisa # (Auto) 0.4 x10^3/uL (0.3-0.8) 01/28/21 08:25 Eos # (Auto) 0.0 x10^3/uL (0.0-0.2) 01/28/21 08:25 Baso # (Auto) 0.0 X10^3/uL (0.0-0.1) 01/28/21 08:25 Absolute Nucleated RBC 0.1 /100WBC 01/28/21 08:25 Total Counted 100 01/28/21 08:25 Neutrophils % (Manual) 93 % (39-76) H 01/28/21 08:25 Lymphocytes % (Manual) 4 % (13-43) L 01/28/21 08:25 Monocytes % (Manual) 3 % (4-9) L 01/28/21 08:25 Plt Morphology Comment Normal (NORMAL) 01/28/21 08:25 RBC Morphology Normal (NORMAL) 01/28/21 08:25 D-Dimer 1.50 ug/ml (0.0-0.57) H* 01/27/21 11:48 Sample Site Rra 01/27/21 15:53 ABG pH 7.310 (7.35-7.45) L 01/27/21 15:53 ABG pCO2 56.0 mmHg (35.0-45.0) H* 01/27/21 15:53 ABG pO2 67.0 mmHg (80.0-100.0) L 01/27/21 15:53 ABG HCO3 28.2 mmol/L (22-26) H 01/27/21 15:53 ABG O2 Saturation 91.0 % (90-100) 01/27/21 15:53 ABG Base Excess 0.9 mmol/L (-2.0-2.0) 01/27/21 15:53 Stevie Test Pos 01/27/21 15:53 A-a Gradient 13.0 mmHg 01/27/21 15:53 FiO2 21.0 01/27/21 15:53 Blood Gas Comments Pt marion well eb 01/27/21 15:53 Sodium 139 mmol/L (136-145) 01/28/21 08:25 Corrected Sodium 139 mmol/L (136-145) 01/28/21 08:25 Potassium 3.9 mmol/L (3.5-5.1) 01/28/21 08:25 Chloride 102 mmol/L (98-107) 01/28/21 08:25 Carbon Dioxide 29.5 mmol/L (21-32) 01/28/21 08:25 BUN 16 mg/dL (7-18) 01/28/21 08:25 Creatinine 0.88 mg/dL (0.55-1.02) 01/28/21 08:25 Est GFR (MDRD) Af Amer > 60 (>60) 01/28/21 08:25 Est GFR (MDRD) Non-Af > 60 (>60) 01/28/21 08:25 Glucose 114 mg/dL (65-99) H 01/28/21 08:25 Calcium 8.8 mg/dL (8.5-10.1) 01/28/21 08:25 Corrected Calcium 9.7 mg/dL (8.5-10.1) 01/28/21 08:25 Ferritin 96 ng/mL (8-252) 01/27/21 11:48 Total Bilirubin 0.40 mg/dL (0.2-1.0) 01/28/21 08:25 AST 10 Units/L (15-37) L 01/28/21 08:25 ALT 56 Units/L (12-78) 01/28/21 08:25 Alkaline Phosphatase 88 Units/L (46-116) 01/28/21 08:25 Troponin I < 0.02 ng/mL (0-1.5) 01/27/21 11:48 C-Reactive Protein 23.90 mg/L (0-3.0) H 01/28/21 08:25 B-Natriuretic Peptide 581 pg/mL (0-79) H* 01/27/21 11:48 Total Protein 6.6 g/dL (6.4-8.2) 01/28/21 08:25 Albumin 2.9 g/dL (3.4-5.0) L 01/28/21 08:25 Globulin 3.7 g/dL (2.5-4.5) 01/28/21 08:25 Albumin/Globulin Ratio 0.8 Ratio (1.1-2.1) L 01/28/21 08:25 Urine Opiates Screen Positive (NEG=<300) A 01/27/21 20:40 Urine Methadone Screen Negative (NEG=<300) 01/27/21 20:40 Ur Barbiturates Screen Positive (NEG=<200) A 01/27/21 20:40 Ur Phencyclidine Scrn Negative (NEG=<25) 01/27/21 20:40 Ur Amphetamines Screen Negative (NEG=<1000) 01/27/21 20:40 U Benzodiazepines Scrn Positive (NEG=<200) A 01/27/21 20:40 Urine Cocaine Screen Negative (NEG=<300) 01/27/21 20:40 U Marijuana (THC) Screen Negative (NEG=<50) 01/27/21 20:40 Review of Systems Constitutional: Weakness and Malaise Eyes: No Symptoms Reported ENT: No Symptoms Reported Respiratory: Cough and Shortness of Breath Cardiovascular: No Symptoms Reported Gastrointestinal: No Symptoms Reported Genitourinary: No Symptoms Reported Musculoskeletal: Back Pain Skin: No Symptoms Reported Neurological: No Symptoms Reported Physical Exam Vital Signs: Temperature 97.6 F Pulse Rate [Apical] 77 Pulse Rate 90 Respiratory Rate 12 Blood Pressure [Left Arm] 127/84 Blood Pressure 162/101 O2 Sat by Pulse Oximetry 99 Oriented: Normal Eyes: Normal Ear: Normal Nose: Normal Throat: Normal Respiratory: Diminished Throughout Cardiovascular: Normal Auscultation: Bowel Sounds: Normal Palpation: Normal Tenderness: Normal Skin: Normal Musculoskeletal: Normal Psychiatric: Anxiety Mood Description: Calm Affect: Normal Speech Pattern: Clear and Appropriate Assessment/Plan (1) Pneumonia due to 2019 novel coronavirus: Status: Acute (2) Acute respiratory failure with hypoxia: Status: Acute (3) Medication side effect: Status: Acute (4) Uncontrolled hypertension: Status: Acute (5) Hypothyroidism: Qualifiers: Hypothyroidism type: acquired Qualified Code(s): E03.9 - Hypothyroidism, unspecified Status: Chronic (6) Anxiety: Status: Chronic Review H&P Reviewed: Yes Patient was examined?: Yes
[2021-01-28] MEDS: NORMODYNE TAB 100 MG PO SCH ×2 (13:16→21:00)
[2021-01-28] MEDS ORDERED: ZESTRIL TAB 10 MG PO SCH ×2 (14:00→21:00)
[2021-01-28] MEDS ORDERED: TYLENOL 325 MG TAB PO PRN (15:25)
[2021-01-28] MEDS: NS 1,000 ML IV 1,000 ML IV SCH (18:09)
[2021-01-28] MEDS ORDERED: CATAPRES-TTS-3 TD SCH (19:00)
[2021-01-28] MEDS: APRESOLINE TAB 25 MG PO SCH (19:08)
[2021-01-28] MEDS: AMBIEN PO PRN (21:00)
[2021-01-28] MEDS ORDERED: FIORICET #3 W/CODEINE CAP PO PRN (21:41)
[2021-01-28] MEDS: ZOFRAN INJ 4 MG VIAL IVP PRN (23:10)
[2021-01-29] MEDS ORDERED: VASOTEC INJ 2.5 MG VIAL IVP PRN (00:05)
[2021-01-29] MEDS ORDERED: KLONOPIN TAB 1 MG PO ONE (00:09)
[2021-01-29] MEDS: ASCORBIC ACID INJ MULTI-DOSE VIAL 1,500 MG in NS 100 ML IV 100 ML IV SCH ×4 (02:34→20:38)
[2021-01-29] MEDS: NEURONTIN CAP 400 MG PO SCH ×3 (05:37→21:40)
[2021-01-29] MEDS: APRESOLINE TAB 25 MG PO SCH ×6 (05:37→23:22)
[2021-01-29] MEDS: NORMODYNE TAB 100 MG PO SCH ×5 (05:38→23:22)
[2021-01-29] MEDS: SOLU-Medrol 40 MG VIAL IVP SCH ×3 (05:38→21:40)
[2021-01-29] MEDS: ZOSYN VIAL 3.375 GRAMS 3.375 G in NS 100 ML IV + SPIKE MINIBAG* 100 ML IV SCH ×3 (05:39→21:40)
[2021-01-29 05:51] LABS: BASOPHILS % (AUTO) 0.3 % (0.2-1.0); EOSINOPHILS % (AUTO) 0.1 % (0.9-2.9); HEMATOCRIT 36.8 % (36.0-47.0); HEMOGLOBIN 12.7 g/dL (12.0-16.0); LYMPHOCYTES % (AUTO) 7.3 % (21.0-51.0); MEAN CORPUSCULAR HEMOGLOBIN 32.6 pg (27.0-34.0); MEAN CORPUSCULAR HGB CONC 34.4 g/dL (33.0-35.0); MEAN CORPUSCULAR VOLUME 94.8 fL (80.0-100.0); MEAN PLATELET VOLUME 7.9 fL (7.4-11.0); MONOCYTES # (AUTO) 0.6 x10^3/uL (0.3-0.8); MONOCYTES % (AUTO) 4.6 % (0.0-13.0); NEUTROPHILS # (AUTO) 11.4 x10^3/uL (2.2-4.8); NEUTROPHILS % (AUTO) 87.7 % (42.0-75.0); PLATELET COUNT 262 X10^3/uL (150.0-450.0); RED BLOOD COUNT 3.88 X10^6/uL (3.5-5.4); RED CELL DISTRIBUTION WIDTH 14.1 % (11.6-16.5)
[2021-01-29 05:53] LABS: ABG BASE EXCESS 8.1 mmol/L (-2.0-2.0)
[2021-01-29 05:54] LABS: ABG HCO3 32.8 mmol/L (22-26)
[2021-01-29 05:55] LABS: ABG ALLEN TEST POS
[2021-01-29] MEDS: FIORICET TAB PO PRN ×2 (05:59→20:39)
[2021-01-29 06:06] LABS: ALANINE AMINOTRANSFERASE 41 Units/L (12-78); ALBUMIN 2.9 g/dL (3.4-5.0); ALKALINE PHOSPHATASE 87 Units/L (46-116); ASPARTATE AMINO TRANSFERASE 9 Units/L (15-37); BLOOD UREA NITROGEN 19 mg/dL (7-18); CALCIUM 8.7 mg/dL (8.5-10.1); CARBON DIOXIDE 29.8 mmol/L (21-32); CHLORIDE 101 mmol/L (98-107); COR CA(FOR HYPOALB) 9.6 mg/dL (8.5-10.1); COR NA(FOR HYPERGLY) 139 mmol/L (136-145); CREATININE 0.72 mg/dL (0.55-1.02); SODIUM 138 mmol/L (136-145); TOTAL PROTEIN 6.7 g/dL (6.4-8.2); eGFR NON BLACK RACES > 60 (>60)
--- NOTE | 2021-01-29 06:21 | RAD ---
HISTORYSOB HX: TIA, CAD, HTN SX: HYSTERECTOMYSTUDYCHEST, 1 [id number]/2021FINDINGSThe trachea is midline. Stable mild cardiomegaly. There has been interval improvement of bibasal patchy atelectasis with better visualization of the diaphragms. Mild emphysema in the upper lobes. No evidence of pneumothorax or pleural effusions.IMPRESSIONInterval improvement of bibasal radiopacities with residual right para cardiac radiopacities.Electronically signed by: Estefany Banks (Jan 29, 2021 06:19:51)
[2021-01-29 06:37] LABS: PLATELET MORPHOLOGY COMMENT NORMAL (NORMAL)
[2021-01-29] MEDS: BROVANA IN SCH ×2 (07:59→20:40)
[2021-01-29] MEDS: PULMICORT NEB TX 0.5 MG NEB SCH ×2 (07:59→20:40)
[2021-01-29] MEDS: LASIX PO SCH (09:23)
[2021-01-29] MEDS: SYNTHROID 75 mcg TAB PO SCH (09:24)
[2021-01-29] MEDS: VIBRAMYCIN PO SCH ×2 (09:24→20:39)
[2021-01-29] MEDS: REMDESIVIR 100 MG in NS 100 ML IV + SPIKE MINIBAG* 120 ML IV SCH (09:24)
[2021-01-29] MEDS: ZINC SULFATE PO SCH ×2 (09:25→20:38)
[2021-01-29] MEDS: VITAMIN D3 125 mcg (5,000 UNITS) PO SCH (09:25)
[2021-01-29] MEDS: ZESTRIL TAB 20 MG PO SCH ×2 (09:25→20:39)
[2021-01-29] MEDS: VITAMIN A PO SCH (09:25)
[2021-01-29] MEDS ORDERED: ZESTRIL TAB 20 MG ONE ×2 (09:30→19:14)
--- NOTE | 2021-01-29 10:13 | PCM.PROG ---
Progress Note - Progress Note for Day of Date of Exam: 01/29/21 - Subjective Subjective: IS A 55 YEAR OLD PATIENT OF [facility]. SHE WAS ADMITTED ON 01/27/21 TO SERVICES OF FOR DIAGNOSIS OF PNEMONIA DUE TO COVID 19 AND HYPOXIA. PRIOR TO ADMISSION, SHE HAD BEEN RECEIVING OUTPATIENT REMDESIVIR. NURSING STAFF REPORTS THAT BLOOD PRESSURE HAS BEEN UNCONTROLLED THROUGHOUT THE NIGHT. TODAY, SHE IS LYING IN BED WITH EYES CLOSED ON MORNING ROUNDS. SHE AWAKENS TO VERBAL STIMULI. SHE IS AWARE OF HER SURROUNDINGS AND ANSWERS ALL QUESTIONS APPROPRIATELY. SHE CONTINUES WITH SHORTNESS OF BREATH, COUGH, AND ALSO REPORTS A HEADACHE. ON EXAMINATION, HEART IS REGULAR IN RATE AND RHYTHM. BILATERAL LUNGS NOTED WITH DIMINISHED LUNG SOUNDS THROUGHOUT. ABDOMEN FLAT, SOFT, AND NON-TENDER WITH NORMAL BOWEL SOUNDS NOTED IN ALL QUADRANTS. HER VITALS THIS MORNING ARE: 98.1-72-18-99%-162/100. LABS WERE OBTAINED. ABNORMAL LAB VALUES INCLUDE THE FOLLOWING: WBC 13.0, POTASSIUM 3.4, BUN 19, GLUCOSE 121, AST 9, CRP 16.40, BNP 462, ALBUMIN 2.9. ABG REVEALED: PH 7.470, PC02 45, P02 87, HC03 32.8, 02 SAT 97, A-A GRADIENT 56, FI02 28. CHEST XRAY REVEALED: Interval improvement of bibasal radiopacities with residual right para cardiac radiopacities. SHE IS CURRENTLY RECEIVING NORMAL SALINE AT 120 ML/HR, VIBRAMYCIN 100MG PO BID, ZOSYN 3.375G IV TID, SOLU-MEDROL 80MG IV Q8H, BROVANA INHALER BID, PULMICORT NEBS BID, ROBITUSSIN DM 10ML PO QID PRN, LOVENOX 30MG SC BID, ASCORBIC ACID 1500MG IV Q6H, FIORICET 1 TABLET PO Q8H PRN, CATAPRES 0.3MG/HR TD PATCH, LISINOPRIL 10MG PO BID, HYDRALAZINE 25MG PO TID, THE POTASSIUM PROTOCOL, AND HER HOME MEDICATIONS WERE RESUMED. TODAY, WE WILL INCREASE HYDRALAZINE TO 50MG PO TID AND INCREASE LISINOPRIL TO 20MG PO BID. OTHERWISE, WE WILL CONTINUE WITH CURRENT PLAN OF CARE. WE PLAN TO FOLLOW UP WITH AM LABS AND CHEST XRAY AND CONTINUE TO MONITOR. TIME SPENT ON CLINICAL ASSESSMENT, REVIEWING LABS AND IMAGING, DECISION MAKING, AND DOCUMENTATION GREATER THAN 45 MINUTES. - Past Medical Family Social History Past Med/Fam/Surg Hx: No changes since H&P Allergies: Allergies morphine Allergy (Verified 05/13/17 19:50) - Review of Systems ROS: No change since H&P - Vital Signs and I&O's Vital Signs: Temperature 98.1 F Pulse Rate [Apical] 77 Pulse Rate 72 Respiratory Rate 18 Blood Pressure [Left Arm] 127/84 Blood Pressure 162/100 O2 Sat by Pulse Oximetry 99 Intake and Output: Intake & Output 01/26/21 01/27/21 01/28/21 01/29/21 11:59 11:59 11:59 11:59 Intake Total 1275 / 1275 1696 / 1696 Output Total 2099 / 2099 3050 / 3050 Balance -825 / -825 -1354 / -1354 - Physical Exam Oriented: Normal Eyes: Normal Ear: Normal Nose: Normal Throat: Normal Respiratory: Diminished Cardiovascular: Normal Auscultation: Bowel Sounds: Normal Palpation: Normal Tenderness: Normal Skin: Normal Musculoskeletal: Normal Psychiatric: Anxiety Mood Description: Calm Affect: Normal Speech Pattern: Clear, Appropriate - Laboratory and Diagnostics Result Diagrams: 01/29/21 05:27 01/29/21 05:27 Labs: Laboratory WBC 13.0 X10^3/uL (3.6-10.0) H 01/29/21 05:27 RBC 3.88 X10^6/uL (3.5-5.4) 01/29/21 05:27 Hgb 12.7 g/dL (12.0-16.0) 01/29/21 05:27 Hct 36.8 % (36.0-47.0) 01/29/21 05:27 MCV 94.8 fL (80.0-100.0) 01/29/21 05:27 MCH 32.6 pg (27.0-34.0) 01/29/21 05:27 MCHC 34.4 g/dL (33.0-35.0) 01/29/21 05:27 RDW 14.1 % (11.6-16.5) 01/29/21 05:27 Plt Count 262 X10^3/uL (150.0-450.0) 01/29/21 05:27 Plt Count Comment Adequate (ADEQUATE) 01/29/21 05:27 MPV 7.9 fL (7.4-11.0) 01/29/21 05:27 Neut % (Auto) 87.7 % (42.0-75.0) H 01/29/21 05:27 Lymph % (Auto) 7.3 % (21.0-51.0) L 01/29/21 05:27 [place] % (Auto) 4.6 % (0.0-13.0) 01/29/21 05:27 Eos % (Auto) 0.1 % (0.9-2.9) L 01/29/21 05:27 Baso % (Auto) 0.3 % (0.2-1.0) 01/29/21 05:27 Neut # (Auto) 11.4 x10^3/uL (2.2-4.8) H 01/29/21 05:27 Lymph # (Auto) 1.0 X10^3/uL (1.3-2.9) L 01/29/21 05:27 [place] # (Auto) 0.6 x10^3/uL (0.3-0.8) 01/29/21 05:27 Eos # (Auto) 0.0 x10^3/uL (0.0-0.2) 01/29/21 05:27 Baso # (Auto) 0.0 X10^3/uL (0.0-0.1) 01/29/21 05:27 Absolute Nucleated RBC 0.1 /100WBC 01/29/21 05:27 Total Counted 100 01/29/21 05:27 Neutrophils % (Manual) 88 % (39-76) H 01/29/21 05:27 Lymphocytes % (Manual) 8 % (13-43) L 01/29/21 05:27 Monocytes % (Manual) 4 % (4-9) 01/29/21 05:27 Plt Morphology Comment Normal (NORMAL) 01/29/21 05:27 RBC Morphology Normal (NORMAL) 01/29/21 05:27 D-Dimer 1.50 ug/ml (0.0-0.57) H* 01/27/21 11:48 Sample Site Lrad 01/29/21 05:50 ABG pH 7.470 (7.35-7.45) H 01/29/21 05:50 ABG pCO2 45.0 mmHg (35.0-45.0) 01/29/21 05:50 ABG pO2 87.0 mmHg (80.0-100.0) 01/29/21 05:50 ABG HCO3 32.8 mmol/L (22-26) H* 01/29/21 05:50 ABG O2 Saturation 97.0 % (90-100) 01/29/21 05:50 ABG Base Excess 8.1 mmol/L (-2.0-2.0) H 01/29/21 05:50 Stevie Test Pos 01/29/21 05:50 A-a Gradient 56.0 mmHg 01/29/21 05:50 FiO2 28.0 01/29/21 05:50 Blood Gas Comments Zainab abg well-mtf 01/29/21 05:50 Sodium 138 mmol/L (136-145) 01/29/21 05:27 Corrected Sodium 139 mmol/L (136-145) 01/29/21 05:27 Potassium 3.4 mmol/L (3.5-5.1) L 01/29/21 05:27 Chloride 101 mmol/L (98-107) 01/29/21 05:27 Carbon Dioxide 29.8 mmol/L (21-32) 01/29/21 05:27 BUN 19 mg/dL (7-18) H 01/29/21 05:27 Creatinine 0.72 mg/dL (0.55-1.02) 01/29/21 05:27 Est GFR (MDRD) Af Amer > 60 (>60) 01/29/21 05:27 Est GFR (MDRD) Non-Af > 60 (>60) 01/29/21 05:27 Glucose 121 mg/dL (65-99) H 01/29/21 05:27 Calcium 8.7 mg/dL (8.5-10.1) 01/29/21 05:27 Corrected Calcium 9.6 mg/dL (8.5-10.1) 01/29/21 05:27 Magnesium 2.1 mg/dL (1.7-2.9) 01/29/21 05:27 Ferritin 96 ng/mL (8-252) 01/27/21 11:48 Total Bilirubin 0.50 mg/dL (0.2-1.0) 01/29/21 05:27 AST 9 Units/L (15-37) L 01/29/21 05:27 ALT 41 Units/L (12-78) 01/29/21 05:27 Alkaline Phosphatase 87 Units/L (46-116) 01/29/21 05:27 Troponin I < 0.02 ng/mL (0-1.5) 01/27/21 11:48 C-Reactive Protein 16.40 mg/L (0-3.0) H 01/29/21 05:27 B-Natriuretic Peptide 462 pg/mL (0-79) H 01/29/21 05:27 Total Protein 6.7 g/dL (6.4-8.2) 01/29/21 05:27 Albumin 2.9 g/dL (3.4-5.0) L 01/29/21 05:27 Globulin 3.8 g/dL (2.5-4.5) 01/29/21 05:27 Albumin/Globulin Ratio 0.8 Ratio (1.1-2.1) L 01/29/21 05:27 Urine Opiates Screen Positive (NEG=<300) A 01/27/21 20:40 Urine Methadone Screen Negative (NEG=<300) 01/27/21 20:40 Ur Barbiturates Screen Positive (NEG=<200) A 01/27/21 20:40 Ur Phencyclidine Scrn Negative (NEG=<25) 01/27/21 20:40 Ur Amphetamines Screen Negative (NEG=<1000) 01/27/21 20:40 U Benzodiazepines Scrn Positive (NEG=<200) A 01/27/21 20:40 Urine Cocaine Screen Negative (NEG=<300) 01/27/21 20:40 U Marijuana (THC) Screen Negative (NEG=<50) 01/27/21 20:40 - Plan (1) Pneumonia due to 2019 novel coronavirus Status: Acute (2) Acute respiratory failure with hypoxia Status: Acute (3) Uncontrolled hypertension Status: Acute (4) Hypothyroidism Status: Chronic Qualifiers: Hypothyroidism type: acquired (5) Anxiety Status: Chronic
[2021-01-29] MEDS: LOVENOX INJ 30 MG SYR SC SCH ×2 (10:23→20:39)
[2021-01-29] MEDS: MICRO K EXTEN CAP 10 MEQ PO SCH (10:24)
[2021-01-29] MEDS: PEPCID TAB 40 MG PO SCH ×2 (10:24→20:39)
[2021-01-29] MEDS: NS 1,000 ML IV 1,000 ML IV SCH (20:38)
[2021-01-29] MEDS: ZOFRAN INJ 4 MG VIAL IVP PRN (20:39)
[2021-01-29] MEDS: AMBIEN PO PRN (20:39)
[2021-01-30] MEDS: ASCORBIC ACID INJ MULTI-DOSE VIAL 1,500 MG in NS 100 ML IV 100 ML IV SCH ×4 (03:13→21:42)
[2021-01-30] MEDS: APRESOLINE TAB 25 MG PO SCH ×3 (05:34→21:44)
[2021-01-30] MEDS: NEURONTIN CAP 400 MG PO SCH ×3 (05:35→21:47)
[2021-01-30] MEDS: ZOSYN VIAL 3.375 GRAMS 3.375 G in NS 100 ML IV + SPIKE MINIBAG* 100 ML IV SCH ×3 (05:35→21:42)
[2021-01-30] MEDS: NORMODYNE TAB 100 MG PO SCH ×3 (05:35→21:45)
[2021-01-30] MEDS: SOLU-Medrol 40 MG VIAL IVP SCH ×3 (05:36→21:48)
[2021-01-30 05:54] LABS: BASOPHILS % (AUTO) 0.2 % (0.2-1.0); HEMATOCRIT 35.4 % (36.0-47.0); LYMPHOCYTES % (AUTO) 8.4 % (21.0-51.0); MEAN CORPUSCULAR HEMOGLOBIN 32.2 pg (27.0-34.0); MEAN CORPUSCULAR VOLUME 94.9 fL (80.0-100.0); MEAN PLATELET VOLUME 8.1 fL (7.4-11.0); MONOCYTES # (AUTO) 0.7 x10^3/uL (0.3-0.8); MONOCYTES % (AUTO) 6.3 % (0.0-13.0); NEUTROPHILS % (AUTO) 85.1 % (42.0-75.0); PLATELET COUNT 251 X10^3/uL (150.0-450.0); RED BLOOD COUNT 3.73 X10^6/uL (3.5-5.4); RED CELL DISTRIBUTION WIDTH 14.4 % (11.6-16.5); WHITE BLOOD COUNT 11.8 X10^3/uL (3.6-10.0)
[2021-01-30 06:03] LABS: ALANINE AMINOTRANSFERASE 33 Units/L (12-78); ALBUMIN 2.6 g/dL (3.4-5.0); ALKALINE PHOSPHATASE 82 Units/L (46-116); ASPARTATE AMINO TRANSFERASE 8 Units/L (15-37); BLOOD UREA NITROGEN 25 mg/dL (7-18); CALCIUM 8.5 mg/dL (8.5-10.1); CARBON DIOXIDE 29.7 mmol/L (21-32); CHLORIDE 104 mmol/L (98-107); COR CA(FOR HYPOALB) 9.6 mg/dL (8.5-10.1); COR NA(FOR HYPERGLY) 143 mmol/L (136-145); CREATININE 0.85 mg/dL (0.55-1.02); SODIUM 142 mmol/L (136-145); TOTAL PROTEIN 6.1 g/dL (6.4-8.2); eGFR NON BLACK RACES > 60 (>60)
--- NOTE | 2021-01-30 07:04 | RAD ---
HISTORYSOB COVID-19 pneumoniaSTUDYAP [id number]/2021FINDINGSThere is interval progression of localized airspace involvement in the medial right lower lobe. Heart size is similar. No change in appearance of left lung or either pleural space.IMPRESSIONInterval increase in right lower lung pneumonia. No change otherwise since 1 day prior.Electronically signed by: ITALO CORTEZ (Jan 30, 2021 07:02:20)
[2021-01-30 07:19] LABS: BAND NEUTROPHILS % 2 % (0-10); PLATELET MORPHOLOGY COMMENT NORMAL (NORMAL)
[2021-01-30] MEDS ORDERED: ZESTRIL TAB 20 MG ONE ×2 (08:14→21:33)
[2021-01-30] MEDS: BROVANA IN SCH ×2 (08:15→20:15)
[2021-01-30] MEDS: PULMICORT NEB TX 0.5 MG NEB SCH ×2 (08:15→20:15)
[2021-01-30] MEDS: VITAMIN A PO SCH (08:22)
[2021-01-30] MEDS: VIBRAMYCIN PO SCH ×2 (08:23→21:51)
[2021-01-30] MEDS: VITAMIN D3 125 mcg (5,000 UNITS) PO SCH (08:23)
[2021-01-30] MEDS: PEPCID TAB 40 MG PO SCH ×2 (08:24→21:45)
[2021-01-30] MEDS: SYNTHROID 75 mcg TAB PO SCH (08:24)
[2021-01-30] MEDS: ZINC SULFATE PO SCH ×2 (08:24→21:47)
[2021-01-30] MEDS: LOVENOX INJ 30 MG SYR SC SCH ×2 (08:25→21:47)
[2021-01-30] MEDS: LASIX PO SCH (08:25)
[2021-01-30] MEDS: MICRO K EXTEN CAP 10 MEQ PO SCH (08:25)
[2021-01-30] MEDS: REMDESIVIR 100 MG in NS 100 ML IV + SPIKE MINIBAG* 120 ML IV SCH (09:47)
[2021-01-30] MEDS: ZESTRIL TAB 20 MG PO SCH ×2 (11:10→21:44)
[2021-01-30] MEDS: FIORICET TAB PO PRN ×2 (13:40→23:15)
[2021-01-30] MEDS: NS 1,000 ML IV 1,000 ML IV SCH (21:41)
[2021-01-30] MEDS: AMBIEN PO PRN (21:43)
[2021-01-31] MEDS: ASCORBIC ACID INJ MULTI-DOSE VIAL 1,500 MG in NS 100 ML IV 100 ML IV SCH ×2 (03:42→08:54)
[2021-01-31 05:31] LABS: BASOPHILS % (AUTO) 0.2 % (0.2-1.0); HEMOGLOBIN 12.4 g/dL (12.0-16.0); LYMPHOCYTES # (AUTO) 0.6 X10^3/uL (1.3-2.9); LYMPHOCYTES % (AUTO) 5.5 % (21.0-51.0); MEAN CORPUSCULAR HEMOGLOBIN 32.1 pg (27.0-34.0); MEAN CORPUSCULAR HGB CONC 33.5 g/dL (33.0-35.0); MEAN CORPUSCULAR VOLUME 95.9 fL (80.0-100.0); MEAN PLATELET VOLUME 8.1 fL (7.4-11.0); MONOCYTES # (AUTO) 0.2 x10^3/uL (0.3-0.8); NEUTROPHILS # (AUTO) 10.2 x10^3/uL (2.2-4.8); NEUTROPHILS % (AUTO) 92.3 % (42.0-75.0); PLATELET COUNT 246 X10^3/uL (150.0-450.0); RED BLOOD COUNT 3.86 X10^6/uL (3.5-5.4); RED CELL DISTRIBUTION WIDTH 14.6 % (11.6-16.5); WHITE BLOOD COUNT 11.1 X10^3/uL (3.6-10.0)
[2021-01-31 05:44] LABS: ALANINE AMINOTRANSFERASE 34 Units/L (12-78); ALBUMIN 2.6 g/dL (3.4-5.0); ALKALINE PHOSPHATASE 71 Units/L (46-116); ASPARTATE AMINO TRANSFERASE 10 Units/L (15-37); BLOOD UREA NITROGEN 26 mg/dL (7-18); CALCIUM 8.2 mg/dL (8.5-10.1); CARBON DIOXIDE 26.7 mmol/L (21-32); CHLORIDE 104 mmol/L (98-107); COR CA(FOR HYPOALB) 9.3 mg/dL (8.5-10.1); COR NA(FOR HYPERGLY) 143 mmol/L (136-145); CREATININE 0.99 mg/dL (0.55-1.02); SODIUM 141 mmol/L (136-145); eGFR NON BLACK RACES > 60 (>60)
[2021-01-31 06:05] LABS: PLATELET MORPHOLOGY COMMENT NORMAL (NORMAL)
[2021-01-31] MEDS: NORMODYNE TAB 100 MG PO SCH (06:09)
[2021-01-31] MEDS: APRESOLINE TAB 25 MG PO SCH (06:09)
[2021-01-31] MEDS: NEURONTIN CAP 400 MG PO SCH (06:09)
[2021-01-31] MEDS: ZOSYN VIAL 3.375 GRAMS 3.375 G in NS 100 ML IV + SPIKE MINIBAG* 100 ML IV SCH (06:10)
[2021-01-31] MEDS: SOLU-Medrol 40 MG VIAL IVP SCH (06:10)
--- NOTE | 2021-01-31 06:33 | RAD ---
HISTORYShortness of breath, COVID-19STUDYChest AP [id number]/21/2021FINDINGSHear t is within normal limits in size. The mary are normal. Right medial basal infiltrate is improved of the residual infiltrate the some subsegmental atelectasis remain. The remainder of the lung marshall are clear. A small left pleural effusion may be present. Bony thorax is unremarkable.IMPRESSIONImproving right medial basal lung infiltrateLeft lung now clearLikely small left pleural effusionElectronically signed by: MANNY MURRELL (Jan 31, 2021 06:31:00)
[2021-01-31] MEDS: PULMICORT NEB TX 0.5 MG NEB SCH (08:11)
[2021-01-31] MEDS: BROVANA IN SCH (08:11)
[2021-01-31] MEDS ORDERED: ZESTRIL TAB 20 MG ONE (08:16)
[2021-01-31] MEDS: ZINC SULFATE PO SCH (08:19)
[2021-01-31] MEDS: VITAMIN D3 125 mcg (5,000 UNITS) PO SCH (08:19)
[2021-01-31] MEDS: VITAMIN A PO SCH (08:19)
[2021-01-31] MEDS: MICRO K EXTEN CAP 10 MEQ PO SCH (08:20)
[2021-01-31] MEDS: VIBRAMYCIN PO SCH (08:21)
[2021-01-31] MEDS: PEPCID TAB 40 MG PO SCH (08:22)
[2021-01-31] MEDS: LASIX PO SCH (08:25)
[2021-01-31] MEDS: LOVENOX INJ 30 MG SYR SC SCH (08:26)
[2021-01-31] MEDS: SYNTHROID 75 mcg TAB PO SCH (08:27)
[2021-01-31] MEDS ORDERED: PREDNISONE TAB 20 MG PO ONE (08:57)
[2021-01-31] MEDS ORDERED: PREDNISONE TAB 20 MG PO SCH (09:00)
[2021-01-31] MEDS ORDERED: APRESOLINE TAB 25 MG PO SCH (09:00)
--- NOTE | 2021-01-31 11:47 | W.DIS.FURT ---
Summary of Discharge Discharge Summary of Date Date of Exam: 01/31/21 Admission Date Date of Admission: 01/27/21 Admission Diagnosis Patient Problems (Updated 02/01/21 @ 16:31 by Diamante Sierra) Acute respiratory failure with hypoxia (Acute) J96.01 Uncontrolled hypertension (Acute) I10 Pneumonia due to 2019 novel coronavirus (Acute) U07.1, J12.82 Acute dyspnea (Acute) R06.00 Hypothyroidism (Chronic) E03.9 Anxiety (Chronic) F41.9 Hospital Course: Ms Pedraza is a 55y/o female with multiple comorbidities including uncontrolled HTN, anxiety, depression and chronic pain syndrome was diagnosed with COVID on Sunday01/24/21 and was being treated outpatient with Remdesivir infusions. She was also taking PO abx and steroids. Patient came for her infusion yesterday but prior to starting, her vitals showed POX 88% and patient was noted to be extremely lethargic with low respirations so was sent to the ER. She is awake and alert this morning. She is currently on 2L NC. Patient states she usually takes 2 zanaflex and gabapentin together as that helps her stay calm. In the ER, patient had elevated d-dimer, CTA was done. It showed bilateral ground glass opacities, cardiomegaly but no PE. Patient was admitted to ICU with covid protocol. She was started on IV antibiotics, solumedrol and Remdesivir. She was also started on nebs and IS. Patient's opioids and benzos were put on hold due to patient being drowsy. She has a hx of uncontrolled HTN so patient's BP was managed with IV medications along with addition of new oral medicines. ECHO was done which showed normal global wall motion with EF 65%. She was weaned off O2 and saturating well on room air. PT, OT and RT worked with her as tolerated. Patient was stable for discharge home. Patient did not require any O2 at rest or exertion. She will follow up with PCP as scheduled. Vital Signs: Vital Signs (72 hours) 01/28/21 12:00 01/28/21 12:15 01/28/21 12:30 Temperature 97.9 F Pulse Rate 81 90 90 Respiratory Rate 11 L 12 19 Blood Pressure 160/97 162/101 152/86 O2 Sat by Pulse Oximetry 98 99 97 01/28/21 12:45 01/28/21 12:58 01/28/21 13:00 Temperature Pulse Rate 95 H 99 H 90 Respiratory Rate 26 H 14 15 Blood Pressure 196/105 186/102 176/118 O2 Sat by Pulse Oximetry 96 98 98 01/28/21 13:07 01/28/21 13:14 01/28/21 13:15 Temperature Pulse Rate 90 96 H 105 H Respiratory Rate 18 19 19 Blood Pressure 173/103 175/109 170/119 O2 Sat by Pulse Oximetry 98 98 98 01/28/21 13:26 01/28/21 13:30 01/28/21 13:45 Temperature Pulse Rate 91 H 94 H 94 H Respiratory Rate 13 20 12 Blood Pressure 165/85 171/93 169/95 O2 Sat by Pulse Oximetry 98 98 98 01/28/21 14:00 01/28/21 14:15 01/28/21 14:17 Temperature Pulse Rate 83 87 85 Respiratory Rate 17 17 14 Blood Pressure 174/99 168/101 170/108 O2 Sat by Pulse Oximetry 98 99 99 01/28/21 14:20 01/28/21 14:25 01/28/21 14:26 Temperature Pulse Rate 83 91 H 93 H Respiratory Rate 16 16 13 Blood Pressure 169/109 152/102 153/100 O2 Sat by Pulse Oximetry 98 98 98 01/28/21 14:27 01/28/21 14:30 01/28/21 15:00 Temperature Pulse Rate 95 H 99 H 104 H Respiratory Rate 15 14 36 H Blood Pressure 159/92 150/91 O2 Sat by Pulse Oximetry 98 98 96 01/28/21 15:09 01/28/21 15:10 01/28/21 15:16 Temperature 98.0 F Pulse Rate 104 H 102 H 100 H Respiratory Rate 19 19 9 L Blood Pressure 171/105 168/101 166/102 O2 Sat by Pulse Oximetry 97 97 97 01/28/21 15:20 01/28/21 15:30 01/28/21 15:33 Temperature Pulse Rate 96 H 100 H 100 H Respiratory Rate 11 L 15 17 Blood Pressure 165/104 171/114 172/122 O2 Sat by Pulse Oximetry 97 97 97 01/28/21 15:34 01/28/21 15:35 01/28/21 15:47 Temperature Pulse Rate 97 H 97 H 99 H Respiratory Rate 21 15 20 Blood Pressure 166/120 168/119 173/107 O2 Sat by Pulse Oximetry 97 97 98 01/28/21 15:50 01/28/21 15:51 01/28/21 15:54 Temperature Pulse Rate 97 H 97 H Respiratory Rate 18 22 18 Blood Pressure 175/104 162/97 O2 Sat by Pulse Oximetry 96 96 01/28/21 16:00 01/28/21 16:22 01/28/21 16:30 Temperature Pulse Rate 99 H 95 H Respiratory Rate 14 11 L Blood Pressure 158/97 170/102 O2 Sat by Pulse Oximetry 96 98 99 01/28/21 16:35 01/28/21 16:54 01/28/21 17:01 Temperature Pulse Rate 97 H 102 H Respiratory Rate 14 18 Blood Pressure 158/100 O2 Sat by Pulse Oximetry 99 97 01/28/21 17:30 01/28/21 17:44 01/28/21 17:55 Temperature Pulse Rate 94 H 85 Respiratory Rate 15 19 Blood Pressure 178/97 194/107 O2 Sat by Pulse Oximetry 97 98 01/28/21 17:57 01/28/21 18:00 01/28/21 18:10 Temperature Pulse Rate 94 H 85 89 Respiratory Rate 18 16 16 Blood Pressure 168/106 176/108 163/99 O2 Sat by Pulse Oximetry 99 98 99 01/28/21 18:20 01/28/21 18:30 01/28/21 18:40 Temperature Pulse Rate 89 82 82 Respiratory Rate 16 13 14 Blood Pressure 166/102 177/109 179/103 O2 Sat by Pulse Oximetry 98 98 99 01/28/21 18:50 01/28/21 19:09 01/28/21 19:16 Temperature Pulse Rate 81 94 H 87 Respiratory Rate 16 27 H Blood Pressure 178/103 169/96 O2 Sat by Pulse Oximetry 98 99 97 01/28/21 19:20 01/28/21 19:30 01/28/21 19:40 Temperature Pulse Rate 85 83 79 Respiratory Rate 11 L 15 13 Blood Pressure 165/96 165/94 170/100 O2 Sat by Pulse Oximetry 97 96 97 01/28/21 19:50 01/28/21 20:00 01/28/21 20:10 Temperature 98.2 F Pulse Rate 88 79 Respiratory Rate 17 15 Blood Pressure 166/102 160/95 181/107 O2 Sat by Pulse Oximetry 96 96 01/28/21 20:20 01/28/21 20:30 01/28/21 20:40 Temperature Pulse Rate 78 82 77 Respiratory Rate 14 13 17 Blood Pressure 179/92 173/98 167/101 O2 Sat by Pulse Oximetry 97 96 97 01/28/21 20:45 01/28/21 20:50 01/28/21 21:00 Temperature Pulse Rate 88 81 88 Respiratory Rate 24 17 20 Blood Pressure 163/99 158/96 184/100 O2 Sat by Pulse Oximetry 97 95 97 01/28/21 21:11 01/28/21 21:20 01/28/21 21:30 Temperature Pulse Rate 81 77 75 Respiratory Rate 28 H 17 13 Blood Pressure 175/98 180/108 182/112 O2 Sat by Pulse Oximetry 97 97 98 01/28/21 21:40 01/28/21 21:50 01/28/21 22:00 Temperature Pulse Rate 78 84 72 Respiratory Rate 16 19 17 Blood Pressure 174/96 187/92 O2 Sat by Pulse Oximetry 98 98 96 01/28/21 22:01 01/28/21 22:10 01/28/21 22:20 Temperature Pulse Rate 78 80 82 Respiratory Rate 17 26 H 25 H Blood Pressure 193/99 194/96 177/95 O2 Sat by Pulse Oximetry 96 96 97 01/28/21 22:30 01/28/21 22:31 01/28/21 22:40 Temperature Pulse Rate 83 110 H 99 H Respiratory Rate 33 H 46 H 33 H Blood Pressure 192/125 167/122 O2 Sat by Pulse Oximetry 98 98 99 01/28/21 22:50 01/28/21 22:58 01/28/21 23:00 Temperature Pulse Rate 101 H 71 68 Respiratory Rate 29 H 13 11 L Blood Pressure 166/123 165/101 178/107 O2 Sat by Pulse Oximetry 98 98 93 L 01/28/21 23:05 01/28/21 23:10 01/28/21 23:30 Temperature Pulse Rate 86 80 83 Respiratory Rate 23 15 16 Blood Pressure 162/98 161/98 O2 Sat by Pulse Oximetry 95 91 L 97 01/29/21 00:00 01/29/21 00:21 01/29/21 00:22 Temperature 97.8 F Pulse Rate 80 92 H 88 Respiratory Rate 13 19 18 Blood Pressure 193/109 172/101 172/99 O2 Sat by Pulse Oximetry 100 97 97 01/29/21 00:30 01/29/21 01:00 01/29/21 01:05 Temperature Pulse Rate 89 83 85 Respiratory Rate 21 15 20 Blood Pressure 178/102 166/92 O2 Sat by Pulse Oximetry 96 95 94 L 01/29/21 01:30 01/29/21 02:00 01/29/21 02:30 Temperature Pulse Rate 85 91 H 84 Respiratory Rate 14 22 17 Blood Pressure 169/99 O2 Sat by Pulse Oximetry 97 94 L 91 L 01/29/21 03:00 01/29/21 03:04 01/29/21 03:06 Temperature Pulse Rate 87 87 85 Respiratory Rate 15 26 H 16 Blood Pressure 168/105 161/101 165/103 O2 Sat by Pulse Oximetry 91 L 92 L 91 L 01/29/21 03:07 01/29/21 03:08 01/29/21 03:30 Temperature Pulse Rate 84 88 85 Respiratory Rate 18 16 18 Blood Pressure 171/105 165/95 O2 Sat by Pulse Oximetry 92 L 93 L 92 L 01/29/21 04:00 01/29/21 04:30 01/29/21 05:00 Temperature 98.1 F Pulse Rate 83 84 84 Respiratory Rate 14 14 15 Blood Pressure 176/96 161/100 O2 Sat by Pulse Oximetry 93 L 92 L 95 01/29/21 05:20 01/29/21 05:21 01/29/21 05:30 Temperature Pulse Rate 76 73 82 Respiratory Rate 18 15 16 Blood Pressure 176/104 171/100 O2 Sat by Pulse Oximetry 100 98 99 01/29/21 05:32 01/29/21 05:34 01/29/21 05:49 Temperature Pulse Rate 83 83 Respiratory Rate 15 23 Blood Pressure 184/108 176/111 171/109 O2 Sat by Pulse Oximetry 99 98 01/29/21 05:52 01/29/21 05:55 01/29/21 05:59 Temperature Pulse Rate 79 82 Respiratory Rate 17 22 18 Blood Pressure 201/116 185/97 O2 Sat by Pulse Oximetry 97 97 01/29/21 06:00 01/29/21 06:30 01/29/21 06:59 Temperature Pulse Rate 89 81 Respiratory Rate 15 19 16 Blood Pressure 168/100 O2 Sat by Pulse Oximetry 98 96 01/29/21 07:00 01/29/21 07:30 01/29/21 07:59 Temperature 98.6 F Pulse Rate 87 81 Respiratory Rate 20 17 Blood Pressure 165/104 O2 Sat by Pulse Oximetry 98 97 98 01/29/21 08:00 01/29/21 08:30 01/29/21 09:00 Temperature 98.8 F Pulse Rate 72 76 74 Respiratory Rate 18 13 14 Blood Pressure 162/100 172/107 O2 Sat by Pulse Oximetry 99 96 96 01/29/21 09:30 01/29/21 10:00 01/29/21 10:30 Temperature Pulse Rate 80 82 78 Respiratory Rate 14 13 20 Blood Pressure 152/92 O2 Sat by Pulse Oximetry 96 97 97 01/29/21 11:00 01/29/21 11:30 01/29/21 12:00 Temperature Pulse Rate 79 82 85 Respiratory Rate 25 H 15 22 Blood Pressure 155/91 158/95 O2 Sat by Pulse Oximetry 98 95 97 01/29/21 12:30 01/29/21 13:14 01/29/21 13:19 Temperature 98.0 F Pulse Rate 85 95 H 87 Respiratory Rate 22 16 Blood Pressure 149/96 O2 Sat by Pulse Oximetry 97 97 94 L 01/29/21 13:30 01/29/21 14:00 01/29/21 14:30 Temperature Pulse Rate 86 87 80 Respiratory Rate 23 28 H 30 H Blood Pressure 123/78 O2 Sat by Pulse Oximetry 96 96 95 01/29/21 15:00 01/29/21 15:02 01/29/21 15:05 Temperature 98.0 F Pulse Rate 76 78 70 Respiratory Rate 20 26 H 31 H Blood Pressure 78/50 77/50 82/51 O2 Sat by Pulse Oximetry 93 L 95 94 L 01/29/21 15:20 01/29/21 15:30 01/29/21 15:37 Temperature Pulse Rate 76 74 73 Respiratory Rate 34 H 15 16 Blood Pressure 104/58 103/60 O2 Sat by Pulse Oximetry 96 95 96 01/29/21 15:40 01/29/21 16:00 01/29/21 16:01 Temperature Pulse Rate 73 82 87 Respiratory Rate 22 29 H 42 H Blood Pressure 103/60 121/72 O2 Sat by Pulse Oximetry 95 97 97 01/29/21 16:21 01/29/21 16:30 01/29/21 16:40 Temperature Pulse Rate 83 86 Respiratory Rate 20 23 Blood Pressure 109/68 114/74 O2 Sat by Pulse Oximetry 97 95 01/29/21 17:00 01/29/21 17:20 01/29/21 17:30 Temperature Pulse Rate 90 89 94 H Respiratory Rate 33 H 25 H 35 H Blood Pressure 123/76 122/70 O2 Sat by Pulse Oximetry 95 97 96 01/29/21 17:40 01/29/21 18:00 01/29/21 18:20 Temperature Pulse Rate 92 H 95 H 96 H Respiratory Rate 24 25 H 19 Blood Pressure 112/67 123/72 117/72 O2 Sat by Pulse Oximetry 95 96 96 01/29/21 18:30 01/29/21 18:40 01/29/21 19:00 Temperature Pulse Rate 94 H 95 H 93 H Respiratory Rate 20 21 20 Blood Pressure 110/76 119/82 O2 Sat by Pulse Oximetry 96 93 L 95 01/29/21 20:00 01/29/21 20:39 01/29/21 20:40 Temperature 99 F Pulse Rate 93 H 88 Respiratory Rate 20 20 Blood Pressure 129/74 O2 Sat by Pulse Oximetry 95 97 01/29/21 21:00 01/29/21 21:39 01/29/21 22:00 Temperature Pulse Rate 86 Respiratory Rate 22 20 18 Blood Pressure 109/73 104/62 O2 Sat by Pulse Oximetry 95 94 L 01/29/21 23:00 01/30/21 00:00 01/30/21 01:00 Temperature 99.1 F Pulse Rate 78 84 83 Respiratory Rate 18 15 15 Blood Pressure 113/70 114/75 91/55 O2 Sat by Pulse Oximetry 93 L 95 95 01/30/21 02:00 01/30/21 03:00 01/30/21 04:00 Temperature 98.1 F Pulse Rate 92 H 86 82 Respiratory Rate 14 18 17 Blood Pressure 101/52 111/67 125/71 O2 Sat by Pulse Oximetry 95 95 94 L 01/30/21 05:00 01/30/21 06:00 01/30/21 07:00 Temperature Pulse Rate 85 82 77 Respiratory Rate 18 17 17 Blood Pressure 127/72 145/83 113/62 O2 Sat by Pulse Oximetry 93 L 97 93 L 01/30/21 08:00 01/30/21 08:15 01/30/21 09:00 Temperature 97.9 F Pulse Rate 74 74 Respiratory Rate 14 14 Blood Pressure 99/55 99/58 O2 Sat by Pulse Oximetry 92 L 93 L 96 11/21/21 10:00 01/30/21 11:00 01/30/21 12:00 Temperature 98.2 F Pulse Rate 79 78 89 Respiratory Rate 15 18 18 Blood Pressure 98/59 116/70 136/85 O2 Sat by Pulse Oximetry 96 96 95 01/30/21 13:00 01/30/21 13:40 01/30/21 14:00 Temperature Pulse Rate 97 H 84 Respiratory Rate 21 20 23 Blood Pressure 138/79 155/86 O2 Sat by Pulse Oximetry 96 94 L 01/30/21 14:40 01/30/21 15:00 01/30/21 16:00 Temperature 98.4 F Pulse Rate 87 77 Respiratory Rate 20 21 14 Blood Pressure 134/84 88/53 O2 Sat by Pulse Oximetry 95 94 L 01/30/21 17:00 01/30/21 18:00 01/30/21 19:00 Temperature Pulse Rate 84 85 83 Respiratory Rate 16 16 18 Blood Pressure 93/56 100/62 135/81 O2 Sat by Pulse Oximetry 97 94 L 94 L 01/30/21 20:00 01/30/21 20:15 01/30/21 21:00 Temperature 98.5 F Pulse Rate 87 95 H 87 Respiratory Rate 20 20 Blood Pressure 152/93 161/89 O2 Sat by Pulse Oximetry 95 95 92 L 01/30/21 22:00 01/30/21 23:00 01/30/21 23:15 Temperature Pulse Rate 86 87 Respiratory Rate 30 H 19 20 Blood Pressure 163/102 156/96 O2 Sat by Pulse Oximetry 96 96 01/31/21 00:00 01/31/21 00:15 01/31/21 01:00 Temperature 98.2 F Pulse Rate 78 74 Respiratory Rate 17 20 16 Blood Pressure 112/66 115/71 O2 Sat by Pulse Oximetry 90 L 91 L 01/31/21 02:00 01/31/21 03:00 01/31/21 04:00 Temperature 97.7 F Pulse Rate 75 75 87 Respiratory Rate 15 16 18 Blood Pressure 131/77 133/80 142/90 O2 Sat by Pulse Oximetry 93 L 93 L 95 01/31/21 05:00 01/31/21 06:00 01/31/21 07:00 Temperature Pulse Rate 91 H 80 74 Respiratory Rate 17 14 16 Blood Pressure 118/67 100/58 86/49 O2 Sat by Pulse Oximetry 95 96 92 L 01/31/21 08:00 01/31/21 08:11 01/31/21 09:00 Temperature 98.1 F Pulse Rate 77 77 80 Respiratory Rate 16 21 Blood Pressure 88/55 127/60 O2 Sat by Pulse Oximetry 100 96 95 01/31/21 10:00 01/31/21 10:34 01/31/21 11:00 Temperature Pulse Rate 79 79 93 H Respiratory Rate 20 20 23 Blood Pressure 113/64 113/64 128/72 O2 Sat by Pulse Oximetry 96 96 95 Labs: Laboratory Last Values WBC 11.1 X10^3/uL (3.6-10.0) H 01/31/21 04:57 RBC 3.86 X10^6/uL (3.5-5.4) 01/31/21 04:57 Hgb 12.4 g/dL (12.0-16.0) 01/31/21 04:57 Hct 37.0 % (36.0-47.0) 01/31/21 04:57 MCV 95.9 fL (80.0-100.0) 01/31/21 04:57 MCH 32.1 pg (27.0-34.0) 01/31/21 04:57 MCHC 33.5 g/dL (33.0-35.0) 01/31/21 04:57 RDW 14.6 % (11.6-16.5) 01/31/21 04:57 Plt Count 246 X10^3/uL (150.0-450.0) 01/31/21 04:57 Plt Count Comment Adequate (ADEQUATE) 01/31/21 04:57 MPV 8.1 fL (7.4-11.0) 01/31/21 04:57 Neut % (Auto) 92.3 % (42.0-75.0) H 01/31/21 04:57 Lymph % (Auto) 5.5 % (21.0-51.0) L 01/31/21 04:57 [place] % (Auto) 2.0 % (0.0-13.0) 01/31/21 04:57 Eos % (Auto) 0.0 % (0.9-2.9) L 01/31/21 04:57 Baso % (Auto) 0.2 % (0.2-1.0) 01/31/21 04:57 Neut # (Auto) 10.2 x10^3/uL (2.2-4.8) H 01/31/21 04:57 Lymph # (Auto) 0.6 X10^3/uL (1.3-2.9) L 01/31/21 04:57 [place] # (Auto) 0.2 x10^3/uL (0.3-0.8) L 01/31/21 04:57 Eos # (Auto) 0.0 x10^3/uL (0.0-0.2) 01/31/21 04:57 Baso # (Auto) 0.0 X10^3/uL (0.0-0.1) 01/31/21 04:57 Absolute Nucleated RBC 0.1 /100WBC 01/31/21 04:57 Total Counted 100 01/31/21 04:57 Neutrophils % (Manual) 91 % (39-76) H 01/31/21 04:57 Band Neutrophils % 2 % (0-10) 01/30/21 05:20 Lymphocytes % (Manual) 7 % (13-43) L 01/31/21 04:57 Monocytes % (Manual) 2 % (4-9) L 01/31/21 04:57 Plt Morphology Comment Normal (NORMAL) 01/31/21 04:57 RBC Morphology Normal (NORMAL) 01/31/21 04:57 D-Dimer 1.50 ug/ml (0.0-0.57) H* 01/27/21 11:48 Sample Site Lrad 01/29/21 05:50 ABG pH 7.470 (7.35-7.45) H 01/29/21 05:50 ABG pCO2 45.0 mmHg (35.0-45.0) 01/29/21 05:50 ABG pO2 87.0 mmHg (80.0-100.0) 01/29/21 05:50 ABG HCO3 32.8 mmol/L (22-26) H* 01/29/21 05:50 ABG O2 Saturation 97.0 % (90-100) 01/29/21 05:50 ABG Base Excess 8.1 mmol/L (-2.0-2.0) H 01/29/21 05:50 Stevie Test Pos 01/29/21 05:50 A-a Gradient 56.0 mmHg 01/29/21 05:50 FiO2 28.0 01/29/21 05:50 Blood Gas Comments Zainab abg well-mtf 01/29/21 05:50 Sodium 141 mmol/L (136-145) 01/31/21 04:57 Corrected Sodium 143 mmol/L (136-145) 01/31/21 04:57 Potassium 3.6 mmol/L (3.5-5.1) 01/31/21 04:57 Chloride 104 mmol/L (98-107) 01/31/21 04:57 Carbon Dioxide 26.7 mmol/L (21-32) 01/31/21 04:57 BUN 26 mg/dL (7-18) H 01/31/21 04:57 Creatinine 0.99 mg/dL (0.55-1.02) 01/31/21 04:57 Est GFR (MDRD) Af Amer > 60 (>60) 01/31/21 04:57 Est GFR (MDRD) Non-Af > 60 (>60) 01/31/21 04:57 Glucose 201 mg/dL (65-99) H 01/31/21 04:57 Calcium 8.2 mg/dL (8.5-10.1) L 01/31/21 04:57 Corrected Calcium 9.3 mg/dL (8.5-10.1) 01/31/21 04:57 Magnesium 2.1 mg/dL (1.7-2.9) 01/29/21 05:27 Ferritin 96 ng/mL (8-252) 01/27/21 11:48 Total Bilirubin 0.50 mg/dL (0.2-1.0) 01/31/21 04:57 AST 10 Units/L (15-37) L 01/31/21 04:57 ALT 34 Units/L (12-78) 01/31/21 04:57 Alkaline Phosphatase 71 Units/L (46-116) 01/31/21 04:57 Troponin I < 0.02 ng/mL (0-1.5) 01/27/21 11:48 C-Reactive Protein 3.40 mg/L (0-3.0) H 01/31/21 04:57 B-Natriuretic Peptide 128 pg/mL (0-79) H 01/31/21 04:57 Total Protein 6.0 g/dL (6.4-8.2) L 01/31/21 04:57 Albumin 2.6 g/dL (3.4-5.0) L 01/31/21 04:57 Globulin 3.4 g/dL (2.5-4.5) 01/31/21 04:57 Albumin/Globulin Ratio 0.8 Ratio (1.1-2.1) L 01/31/21 04:57 Urine Opiates Screen Positive (NEG=<300) A 01/27/21 20:40 Urine Methadone Screen Negative (NEG=<300) 01/27/21 20:40 Ur Barbiturates Screen Positive (NEG=<200) A 01/27/21 20:40 Ur Phencyclidine Scrn Negative (NEG=<25) 01/27/21 20:40 Ur Amphetamines Screen Negative (NEG=<1000) 01/27/21 20:40 U Benzodiazepines Scrn Positive (NEG=<200) A 01/27/21 20:40 Urine Cocaine Screen Negative (NEG=<300) 01/27/21 20:40 U Marijuana (THC) Screen Negative (NEG=<50) 01/27/21 20:40 Reason For Visit: ACUTE DYSPNEA, COVID PNEUMONIA Discharge Date Discharge Date: 01/31/21 Discharge Diagnosis All Active Problems (Updated 02/01/21 @ 16:31 by Diamante Sierra) Hypoxia (Acute) Medication side effect (Acute) Acute respiratory failure with hypoxia (Acute) Uncontrolled hypertension (Acute) CKD (chronic kidney disease) stage 4, GFR 15-29 ml/min (Acute) Overdose of analgesic (Chronic) Pneumonia due to 2019 novel coronavirus (Acute) Acute dyspnea (Acute) Hypomagnesemia (Acute) Pneumonia (Acute) Hypokalemia (Acute) History of anemia (Chronic) Hypertension (Chronic) Fibromyalgia (Chronic) Hypothyroidism (Chronic) Anxiety (Chronic) Depression (Chronic) History of TIA (transient ischemic attack) (Chronic) Valvular heart disease (Chronic) GERD (gastroesophageal reflux disease) (Chronic) Arthritis (Chronic) Dyslipidemia (Chronic) Constipation (Chronic) Substance abuse (Chronic) Acute respiratory failure (Acute) Hypertension, uncontrolled (Chronic) Non compliance w medication regimen (Chronic) Drug abuse, opioid type (Chronic) Community acquired bacterial pneumonia (Acute) Plan of Treatment: Continue with present treatment and follow up plan. Pt is to keep follow up appointment as instructed and take medications as ordered. Discharge Medications Discharge Medications: morphine Allergy (Verified 05/13/17 19:50) CONTINUE taking the following medications furosemide [Lasix] 20 mg PO DAILY 01/27/21 [History] guaifenesin 200 mg PO QID PRN 01/27/21 [History] hydrocodone-acetaminophen 5 - 325 tab PO BID PRN 01/27/21 [History] labetalol 200 mg PO TID 01/27/21 [History] potassium chloride 10 meq PO DAILY 01/27/21 [History] tizanidine 4 mg PO BID 01/27/21 [History] New Prescriptions albuterol sulfate 2 puff INHALATION Q4-6H PRN #6.7 g 01/31/21 [Rx] hydralazine 25 mg PO BID 30 Days #60 tab 01/31/21 [Rx] ipratropium-albuterol 3 ml INHALATION TID PRN #90 ml 01/31/21 [Rx] levofloxacin 750 mg PO DAILY 5 Days #5 tab 01/31/21 [Rx] lisinopril 20 mg PO BID 30 Days #60 tab 01/31/21 [Rx] nebulizers #1 ea 01/31/21 [Rx] prednisone 40 mg PO DAILY 5 Days #10 tab 01/31/21 [Rx] Follow up and Referral Follow Up: 1 Week (PCP) Discharge Disposition Discharge Disposition: Home Discharge Condition: Stable Discharge Plan Discharge Plan Hospital Course: Ms Pedraza is a 55y/o female with multiple comorbidities including uncontrolled HTN, anxiety, depression and chronic pain syndrome was diagnosed with COVID on Sunday01/24/21 and was being treated outpatient with Remdesivir infusions. She was also taking PO abx and steroids. Patient came for her infusion yesterday but prior to starting, her vitals showed POX 88% and patient was noted to be extremely lethargic with low respirations so was sent to the ER. She is awake and alert this morning. She is currently on 2L NC. Patient states she usually takes 2 zanaflex and gabapentin together as that helps her stay calm. In the ER, patient had elevated d-dimer, CTA was done. It showed bilateral ground glass opacities, cardiomegaly but no PE. Patient was admitted to ICU with covid protocol. She was started on IV antibiotics, solumedrol and Remdesivir. She was also started on nebs and IS. Patient's opioids and benzos were put on hold due to patient being drowsy. She has a hx of uncontrolled HTN so patient's BP was managed with IV medications along with addition of new oral medicines. ECHO was done which showed normal global wall motion with EF 65%. She was weaned off O2 and saturating well on room air. PT, OT and RT worked with her as tolerated. Patient was stable for discharge home. Patient did not require any O2 at rest or exertion. She will follow up with PCP as scheduled. Patient Disposition: HOME, SELF-CARE Condition: Stable Health Concerns: Post Hospitalization: new medications and changes needed to prevent readmission or further decline. Pt educated and given instructions on all concerns. Care Plan Goals: Problem: Respiratory Complications Goal: Improved Uncomplicated Respiratory Status Instructions: Follow provided instructions. Follow up with primary physician as directed. Contact primary care physician or report to the closest Emergency Room if condition worsens. Plan of Treatment: Continue with present treatment and follow up plan. Pt is to keep follow up appointment as instructed and take medications as ordered. Prescriptions: New lisinopril 20 mg Tablet 20 mg PO BID 30 Days Qty: 60 RF: 0 prednisone 20 mg Tablet 40 mg PO DAILY 5 Days Qty: 10 RF: 0 hydralazine 25 mg Tablet 25 mg PO BID 30 Days Qty: 60 RF: 0 levofloxacin 750 mg tablet 750 mg PO DAILY 5 Days Qty: 5 RF: 0 (DME) nebulizers Misc See Rx Instructions .ROUTE .MEDSUPPLY Qty: 1 RF: 0 albuterol sulfate 90 mcg/actuation HFA aerosol inhaler 2 puff inhalation Q4-6H PRNQty: 6.7 RF: 1 ipratropium-albuterol 0.5 mg-3 mg(2.5 mg base)/3 mL solution for nebulization 3 ml inhalation TID PRN (Reason: shortness of breath or wheezing) Qty: 90 RF: 0 Continued levothyroxine 75 mcg Tablet 75 mcg PO DAILY RF: 0 gabapentin 400 mg Capsule 400 mg PO TID RF: 0 zolpidem 10 mg Tablet 10 mg PO HS PRN (Reason: Insomnia) RF: 0 potassium chloride 10 mEq capsule, extended release 10 meq PO DAILY RF: 0 labetalol 200 mg Tablet 200 mg PO TID RF: 0 tizanidine 4 mg Tablet 4 mg PO BID RF: 0 hydrocodone-acetaminophen 5-325 mg Tablet 5 - 325 tab PO BID PRNRF: 0 furosemide [Lasix] 20 mg Tablet 20 mg PO DAILY RF: 0 guaifenesin 100 mg/5 mL Syrup 200 mg PO QID PRN (Reason: Cough) RF: 0 Discontinued clonidine HCl 0.2 mg Tablet 0.2 mg PO TID RF: 0 phendimetrazine tartrate 35 mg Tablet 35 mg PO TID RF: 0 azithromycin 500 mg Tablet 500 mg PO DAILY RF: 0 Follow ups/Referrals Follow ups/Referrals: PARDEEP JOSHUA [Primary Care Provider] - 02/08/21 9:30 am Instructions Instructions: Hand Washing, [id number], Prone Position Therapy, COVID-19, Droplet Precautions, Fank-vy-Niok, Contact Precautions, Vndo-lu-Neac, Hypertension, Adult, [id number], Community-Acquired Pneumonia, Adult, [id number] Stand Alone Forms: Precautions for COVID19, [facility], Patient Portal, Social Distancing
[2021-01-31 12:08] VITALS: BP 165/90
[2021-01-31] MEDS: ZESTRIL TAB 20 MG PO SCH (12:09)
== END 2021-01-31 12:30 | disposition home or self-care (01) | DRG 177 ==
LOC: ER 12:43 → ICU 17:22
PROVIDERS: ADMIT Internal Medicine; ATTEND Internal Medicine
DX: U07.1 COVID-19; J12.82 Pneumonia due to coronavirus disease 2019; R79.82 Elevated C-reactive protein (CRP); K21.9 Gastro-esophageal reflux disease without esophagitis; F41.9 Anxiety disorder, unspecified; R79.1 Abnormal coagulation profile; R51.9 Headache, unspecified; R06.02 Shortness of breath; Z79.899 Other long term (current) drug therapy; I10 Essential (primary) hypertension; J96.01 Acute respiratory failure with hypoxia; E03.8 Other specified hypothyroidism; R79.89 Other specified abnormal findings of blood chemistry

== ENCOUNTER 2022-03-25 17:17 | Inpatient (IN) ==
[2022-03-25] MEDS ORDERED: NS 1,000 ML IV 1,000 ML ONE (17:22)
[2022-03-25] MEDS ORDERED: NARCAN INJ ONE ×3 (17:30→20:05)
[2022-03-25] MEDS ORDERED: NARCAN INJ IVP ONE ×2 (17:35→18:16)
[2022-03-25] MEDS ORDERED: NS 1,000 ML IV 1,000 ML IV ONE (17:35)
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
[2022-03-25 17:55] VITALS: BMI 31.2
[2022-03-25 17:57] LABS: BILIRUBIN,URINE NEGATIVE (NEGATIVE); BLOOD/HEMOGLOBIN,URINE 2+ (NEGATIVE); GLUCOSE, URINE NEGATIVE (NEGATIVE); KETONES,URINE NEGATIVE (NEGATIVE); LEUKOCYTE ESTERASE ,URINE 1+ (NEGATIVE); NITRITES,URINE NEGATIVE (NEGATIVE); PROTEIN,URINE 3+ (NEGATIVE); UROBILINOGEN,URINE 3+ (NORMAL)
[2022-03-25 17:59] LABS: HEMATOCRIT 38.1 % (36.0-47.0); MEAN CORPUSCULAR HEMOGLOBIN 31.7 pg (27.0-34.0); MEAN CORPUSCULAR HGB CONC 34.2 g/dL (33.0-35.0); MEAN CORPUSCULAR VOLUME 92.7 fL (80.0-100.0); MEAN PLATELET VOLUME 8.4 fL (7.4-11.0); RED BLOOD COUNT 4.11 X10^6/uL (3.5-5.4); RED CELL DISTRIBUTION WIDTH 13.3 % (11.6-16.5); WHITE BLOOD COUNT 9.3 X10^3/uL (3.6-10.0)
[2022-03-25 17:59] LABS: APPEARANCE,URINE CLEAR (CLEAR); COLOR,URINE DARK YELLOW (YELLOW)
[2022-03-25 18:09] LABS: BACTERIA,URINE NEGATIVE /HPF (NEGATIVE); RBC,URINE 0-2 /HPF (0-3); SQUAMOUS EPITHELIAL CELL,UR FEW /HPF (NEGATIVE)
[2022-03-25 18:09] LABS: ALANINE AMINOTRANSFERASE 32 Units/L (12-78); ALBUMIN 3.5 g/dL (3.4-5.0); ALKALINE PHOSPHATASE 99 Units/L (46-116); ASPARTATE AMINO TRANSFERASE 36 Units/L (15-37); BLOOD UREA NITROGEN 15 mg/dL (7-18); CALCIUM 9.4 mg/dL (8.5-10.1); CARBON DIOXIDE 28.9 mmol/L (21-32); CHLORIDE 99 mmol/L (98-107); COR NA(FOR HYPERGLY) 140 mmol/L (136-145); SODIUM 139 mmol/L (136-145); TOTAL PROTEIN 7.5 g/dL (6.4-8.2); eGFR NON BLACK RACES > 60 (>60)
[2022-03-25 18:17] LABS: PLATELET MORPHOLOGY COMMENT NORMAL (NORMAL)
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
[2022-03-25] MEDS ORDERED: APRESOLINE INJ 20 MG VIAL IVP ONE ×2 (19:13→19:42)
[2022-03-25] MEDS ORDERED: APRESOLINE INJ 20 MG VIAL ONE (19:15)
[2022-03-25] MEDS ORDERED: NARCAN INJ 2 MG in NS 500 ML IV 500 ML IV ONE (19:52)
[2022-03-25] MEDS ORDERED: NS 500 ML IV 500 ML IV ONE (20:05)
[2022-03-25] MEDS ORDERED: APRESOLINE INJ 20 MG VIAL IVP PRN ×2 (20:25→22:14)
[2022-03-25] MEDS ORDERED: D5 1/2 NS 1,000 ML 1,000 ML IV ONE (20:38)
[2022-03-25] MEDS: D5 1/2 NS 1,000 ML 1,000 ML IV SCH (20:42)
[2022-03-25] MEDS ORDERED: ZOFRAN INJ 4 MG VIAL IVP PRN (22:10)
[2022-03-26] MEDS: COREG TAB 25 MG PO SCH ×3 (00:14→20:24)
[2022-03-26] MEDS: CATAPRES TAB 0.2 MG PO SCH ×4 (00:14→21:27)
[2022-03-26] MEDS: CRESTOR TAB 10 MG PO SCH ×2 (00:14→08:25)
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
[2022-03-26 05:05] LABS: BASOPHILS % (AUTO) 0.7 % (0.2-1.0); EOSINOPHILS # (AUTO) 0.2 x10^3/uL (0.0-0.2); EOSINOPHILS % (AUTO) 3.9 % (0.9-2.9); HEMATOCRIT 37.7 % (36.0-47.0); HEMOGLOBIN 13.1 g/dL (12.0-16.0); LYMPHOCYTES # (AUTO) 1.3 X10^3/uL (1.3-2.9); LYMPHOCYTES % (AUTO) 22.5 % (21.0-51.0); MEAN CORPUSCULAR HEMOGLOBIN 31.8 pg (27.0-34.0); MEAN CORPUSCULAR HGB CONC 34.7 g/dL (33.0-35.0); MEAN CORPUSCULAR VOLUME 91.7 fL (80.0-100.0); MEAN PLATELET VOLUME 8.5 fL (7.4-11.0); MONOCYTES # (AUTO) 0.5 x10^3/uL (0.3-0.8); MONOCYTES % (AUTO) 8.6 % (0.0-13.0); NEUTROPHILS # (AUTO) 3.8 x10^3/uL (2.2-4.8); NEUTROPHILS % (AUTO) 64.3 % (42.0-75.0); RED BLOOD COUNT 4.11 X10^6/uL (3.5-5.4); RED CELL DISTRIBUTION WIDTH 13.3 % (11.6-16.5); WHITE BLOOD COUNT 5.8 X10^3/uL (3.6-10.0)
[2022-03-26] MEDS: D5 1/2 NS 1,000 ML 1,000 ML IV SCH ×3 (05:11→17:53)
[2022-03-26 05:20] LABS: ALANINE AMINOTRANSFERASE 30 Units/L (12-78); ALBUMIN 3.2 g/dL (3.4-5.0); ALKALINE PHOSPHATASE 91 Units/L (46-116); ASPARTATE AMINO TRANSFERASE 31 Units/L (15-37); BLOOD UREA NITROGEN 9 mg/dL (7-18); CALCIUM 8.3 mg/dL (8.5-10.1); CARBON DIOXIDE 29.8 mmol/L (21-32); CHLORIDE 102 mmol/L (98-107); COR CA(FOR HYPOALB) 8.9 mg/dL (8.5-10.1); COR NA(FOR HYPERGLY) 142 mmol/L (136-145); CREATININE 0.66 mg/dL (0.55-1.02); SODIUM 141 mmol/L (136-145); TOTAL PROTEIN 7.1 g/dL (6.4-8.2); eGFR NON BLACK RACES > 60 (>60)
[2022-03-26] MEDS ORDERED: POTASSIUM CHLORIDE LIQ 20 MEQ UDC PO PRN (05:43)
[2022-03-26] MEDS ORDERED: KLOR-CON PO PRN (05:43)
[2022-03-26] MEDS ORDERED: K-RIDER 10 MEQ/NS 100 ML 10 MEQ/100 ML BAG IV PRN (05:43)
[2022-03-26] MEDS ORDERED: MICRO K EXTEN CAP 10 MEQ PO PRN (05:43)
[2022-03-26] MEDS: MAGNESIUM SULFATE 1 GRAM/100 mL PREMIX 1 G/100 ML BAG IV PRN ×4 (06:02→09:36)
[2022-03-26] MEDS: SYNTHROID 75 mcg TAB PO SCH (08:25)
[2022-03-26] MEDS: DIOVAN TAB 160 MG PO SCH (10:41)
[2022-03-26] MEDS: K-DUR TAB 20 MEQ PO PRN ×2 (10:42→15:10)
[2022-03-26] MEDS ORDERED: APRESOLINE INJ 20 MG VIAL IVP ONE (22:10)
[2022-03-27] MEDS: D5 1/2 NS 1,000 ML 1,000 ML IV SCH ×4 (00:58→13:20)
[2022-03-27] MEDS ORDERED: TYLENOL 325 MG TAB PO PRN (03:44)
[2022-03-27 04:51] LABS: BASOPHILS % (AUTO) 0.8 % (0.2-1.0); EOSINOPHILS # (AUTO) 0.1 x10^3/uL (0.0-0.2); EOSINOPHILS % (AUTO) 2.2 % (0.9-2.9); HEMATOCRIT 37.2 % (36.0-47.0); HEMOGLOBIN 12.8 g/dL (12.0-16.0); LYMPHOCYTES # (AUTO) 1.4 X10^3/uL (1.3-2.9); LYMPHOCYTES % (AUTO) 24.8 % (21.0-51.0); MEAN CORPUSCULAR HEMOGLOBIN 31.7 pg (27.0-34.0); MEAN CORPUSCULAR HGB CONC 34.3 g/dL (33.0-35.0); MEAN CORPUSCULAR VOLUME 92.3 fL (80.0-100.0); MEAN PLATELET VOLUME 8.3 fL (7.4-11.0); MONOCYTES # (AUTO) 0.5 x10^3/uL (0.3-0.8); MONOCYTES % (AUTO) 9.4 % (0.0-13.0); NEUTROPHILS # (AUTO) 3.6 x10^3/uL (2.2-4.8); NEUTROPHILS % (AUTO) 62.8 % (42.0-75.0); RED BLOOD COUNT 4.03 X10^6/uL (3.5-5.4); RED CELL DISTRIBUTION WIDTH 13.5 % (11.6-16.5); WHITE BLOOD COUNT 5.8 X10^3/uL (3.6-10.0)
[2022-03-27 05:01] LABS: ALANINE AMINOTRANSFERASE 29 Units/L (12-78); ALKALINE PHOSPHATASE 85 Units/L (46-116); ASPARTATE AMINO TRANSFERASE 26 Units/L (15-37); BLOOD UREA NITROGEN 6 mg/dL (7-18); CALCIUM 8.4 mg/dL (8.5-10.1); CARBON DIOXIDE 25.2 mmol/L (21-32); CHLORIDE 106 mmol/L (98-107); COR CA(FOR HYPOALB) 9.2 mg/dL (8.5-10.1); COR NA(FOR HYPERGLY) 142 mmol/L (136-145); CREATININE 0.68 mg/dL (0.55-1.02); MAGNESIUM 2.1 mg/dL (2.0-2.9); SODIUM 141 mmol/L (136-145); TOTAL PROTEIN 6.8 g/dL (6.4-8.2); eGFR NON BLACK RACES > 60 (>60)
[2022-03-27] MEDS: CATAPRES TAB 0.2 MG PO SCH (05:04)
[2022-03-27] MEDS: CRESTOR TAB 10 MG PO SCH (08:32)
[2022-03-27] MEDS: SYNTHROID 75 mcg TAB PO SCH (08:34)
[2022-03-27] MEDS: COREG TAB 25 MG PO SCH (08:34)
[2022-03-27] MEDS: DIOVAN TAB 160 MG PO SCH (08:34)
[2022-03-27] MEDS ORDERED: XANAX PO ONE (10:53)
[2022-03-27 13:21] VITALS: BP 159/90
--- NOTE | 2022-03-27 14:15 | EKG ---
Test Reason : hypertension protocol Blood Pressure : */* mmHG Vent. Rate : 47 BPM Atrial Rate : 47 BPM P-R Int : 178 ms QRS Dur : 80 ms QT Int : 514 ms P-R-T Axes : 21 0 8 degrees QTc Int : 454 ms Sinus bradycardia Inferior infarct , age undetermined Abnormal ECG Confirmed by Luan Tee ([id number]) on 03/27/2022 6:05:53 PM Referred By: Confirmed By: Luan Tee
== END 2022-03-27 16:27 | disposition home or self-care (01) | DRG 918 ==
LOC: ER 17:17 → ICU 20:03
PROVIDERS: ADMIT Obstetrics & Gynecology Obstetrics; ATTEND Obstetrics & Gynecology Obstetrics
DX: E87.6 Hypokalemia; E03.8 Other specified hypothyroidism; I10 Essential (primary) hypertension; Y92.009 Unspecified place in unspecified non-institutional (private) residence as the place of occurrence of the external cause; T42.6X4A Poisoning by other antiepileptic and sedative-hypnotic drugs, undetermined, initial encounter; R40.0 Somnolence